=== PATIENT | female | born 2000 | race Caucasian/White ===

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

== ENCOUNTER 2022-03-28 13:27 | Emergency (ER) | payer BC, SELFPAY ==
[2022-03-28] VITALS (11 sets, daily range): BP systolic 111–125; BP diastolic 56–75; PULSE 91–92; RESP 14–16; TEMP 36.6–37.4; O2SAT 96–100
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
== END 2022-03-28 15:58 | disposition home or self-care (01) ==
PROVIDERS: Emergency Provider Nurse Practitioner Family
DX: O9A.211 Injury, poisoning and certain other consequences of external causes complicating pregnancy, first trimester (principal); T59.811A Toxic effect of smoke, accidental (unintentional), initial encounter; Z3A.01 Less than 8 weeks gestation of pregnancy
CPT/HCPCS: 36415; 84702; 99283

== ENCOUNTER → 2022-05-27 14:29 | Outpatient (CLI) | payer BC, SELFPAY ==
--- NOTE | ~2022-05-27 | US_ITS ---
EXAMINATION: US OB <= 14 weeks fetus DATE: 05/27/2022 14:46 INDICATION: Uncertain gestational dates TECHNIQUE: Real-time transabdominal obstetric ultrasound. FINDINGS: No prior studies for comparison. The uterus measures 12.8 x 7.1 x 8.9 cm. There is an intrauterine gestational sac, with pole id entified. The crown rump length measures 1.69 cm, which correlates with a estimated gestational age of 12 weeks 2 days. No heart motions detected, consistent with demise. Ovaries are not vi sualized. IMPRESSION: 1. demise. No heart motions detected. Reviewed, dictated and finalized at location A. TERIA WORKER
== END ==
PROVIDERS: Visit Provider Advanced Practice Midwife
DX: Z36.87 Encounter for antenatal screening for uncertain dates (principal); Z3A.12 12 weeks gestation of pregnancy
CPT/HCPCS: 76801

== ENCOUNTER 2022-06-05 02:09 | Day surgery (SDC) | payer BC, SELFPAY ==
[2022-05-28 15:04] VITALS: BMI 22.8
--- NOTE | 2022-05-28 15:09 | PC.NURSE ---
Report to the Outpatient Waiting Room, entrance under the green pavilion located off [facility], at time 0700 on date 06/05/22. Planned Procedure Time: 0900. Time changes happen often and if your time is changed the preop area will call you the afternoon before. - You and your visitor will be asked to self-screen and do not enter if you have any COVID symptoms. - Only one visitor is requested with a max of two and NO children visitors are allowed at this time. - The patient visitor may be requested to leave or wait in car when not with patient due to distancing restrictions. - A mask is optional within the hospital. Patients may have clear liquids (water, carbonated beverages, clear teas, apple juice) until 3 hours prior to surgery with a maximum of 20 ounces. - No food from midnight until time of surgery Take the following medications with a SIP of water the morning of surgery: NONE Medications to discontinue per physician: VITAMIN Date to take last dose: 06/01/22 Please no make-up, nail georgian, hairspray, perfume, deodorant, or body powder the day of surgery. No jewelry (including any body piercings) or valuables the day of surgery, leave them at home. Please take a shower or bath the night before, or the morning of, surgery with an antibacterial soap. Wear comfortable, loose fitting clothing. - Jewelry must be removed prior to entering the operating room. Rings and piercings that are not removed may be cut off. - The hospital will not accept responsibility for valuables. - Please leave all valuables, including medications, at home the day of surgery. If you are going home after surgery, a licensed charter coach driver must drive you home. - NO public transportation without another adult if you receive anesthesia. - We recommend that an adult stay with you for 24 hours following discharge. - We also recommend that you do not drive, make important decision, drink alcoholic beverages, or take any drugs that were not prescribed by your health care provider for at least 24 hours after your discharge time. Follow any additional instructions given to you from your surgeon. If you or anyone in your household have experienced Covid symptoms in the past week, please notify your surgeon or the nurse liaison at the phone number below for possible testing. Telephone instructions given to PT - ALEKSANDAR BRAUN and asked if any additional questions and then verbalized understanding. Patient advised to call surgeon office or pre surgery nurse liaison [phone] if any additional questions.
[2022-06-05 07:45] VITALS: BP 120/72; PULSE 68; RESP 16; TEMP 36.5; O2SAT 100
[2022-06-05] MEDS: LACTATED RINGERS 1,000 ML 30 ML IV CONT (07:45)
[2022-06-05] MEDS: ACETAMINOPHEN 500 MG TABLET 1000 MG PO (08:00)
--- NOTE | 2022-06-05 08:01 | P.PNAN_ITS ---
Anes - Initial Pre Proc Eval Procedure: Operation Date: 06/05/22 09:00 Proposed Procedures p Suction Dilation and Curettage - Vianey Hernandez MD Date/Time: 06/05/22 08:01 Surgeon: Vianey Hernandez MD Pre Op Diagnosis: missed ab Patient Data Age: 21 Gender: F Height: 1.73 m Weight: 68.04 kg Allergies Allergy/AdvReac Type Severity Reaction Status Date / Time Penicillins Allergy Unknown Rash Verified 06/05/22 07:58 Home Medications Medication Instructions Recorded Confirmed Type prenat.vits,sheree,[id number] 1 tablet PO DAILY 05/28/22 06/05/22 History Patient hx anesthesia problems: none Family hx anesthesia problems: none Results Review: All pre-operative results and documents have been reviewed as part of the pre- operative evaluation. [facility] Past Medical History Medical History Generalized anxiety disorder with panic attacks Major depressive disorder Family History Family History Father Heart disease Mother Depression Anxiety Alcohol abuse Grandparent Alcohol abuse Heart disease Diabetes mellitus Hypertension Depression Anxiety Social History Social History Social History: Caffeine-Coffee/tea/soda 3 cups daily Smoking status: Former smoker Additional smoking assessment comments: OCCASIONALLY IN PAST Alcohol intake: current Alcohol use details: OCCASIONALLY WHEN NOT Substance use: never Substance use type: does not use Living arrangements: with family Spiritual care concerns: No Agree to blood products: Yes Anes - Eval Final PreProcedure Day of Procedure 06/05/22 08:01 Patient weight: normal Heart: regular rate and rhythm Lungs: clear to auscultation Airway: Mallampati scale class II Neurological: alert and oriented Last oral intake: >/= 8 hours ASA classification: II Emergent: no Anesthetic plan: proceed Anesthesia type and monitoring: general GIVS and standard monitoring Results Review: All pre-operative results and documents have been reviewed as part of the pre- operative evaluation. Informed Consent: The patient's anesthetic plan and its attendant risks and benefits were discussed with the patient/family/POA. Questions were solicited and answers provided to the satisfaction of the patient/family/POA.
--- NOTE | 2022-06-05 08:34 | WPDHPUPDATE1 ---
History and Physical Update Update Date/Time: 06/05/22 08:34 History and Physical has been reviewed, including an updated exam of the patient. There are NO changes in the patient's condition. Risks, benefits, and alternatives have been discussed and questions answered. Patient agrees to proceed with procedure.
--- NOTE | 2022-06-05 08:35 | PM.HPGS ---
History of Present Illness History of Present Illness Consent: Risks, benefits, and alternatives have been discussed and questions answered. Patient agrees to proceed with procedure. Chief complaint: missed ab Narrative: Lizzie Rosales is a 21 year old female 1 with a missed at 12 weeks and 2 days. The patient has had no bleeding or cramping. or ultrasound revealed a 12 week 2 day demise. Patient has chosen to proceed with suction D and C after discussion of options. Risks of surgery including infection, bleeding, and perforation were reviewed. Patient voices understanding and agrees to proceed. Review of Systems Constitutional: Constitutional: Reports fatigue and Reports headache(s) Gastrointestinal: Gastrointestinal: Reports nausea and Reports vomiting PMFSH Past Medical History Medical History (Updated 06/05/22 @ 08:38 by Vianey Hernandez MD) Generalized anxiety disorder with panic attacks Major depressive disorder PTSD (post-traumatic stress disorder) Family History Family History Father Heart disease Mother Depression Anxiety Alcohol abuse Grandparent Alcohol abuse Heart disease Diabetes mellitus Hypertension Depression Anxiety Social History Social History Social History: Caffeine-Coffee/tea/soda 3 cups daily Smoking status: Former smoker Additional smoking assessment comments: OCCASIONALLY IN PAST Alcohol intake: current Alcohol use details: OCCASIONALLY WHEN NOT Substance use: never Substance use type: does not use Living arrangements: with family Spiritual care concerns: No Agree to blood products: Yes Meds Home Medications and Allergies Home Medications Medication Instructions Recorded Confirmed Type prenat.vits,sheree,[id number] 1 tablet PO DAILY 05/28/22 06/05/22 History Allergies Allergy/AdvReac Type Severity Reaction Status Date / Time Penicillins Allergy Unknown Rash Verified 06/05/22 07:58 Vital Signs Vital Signs - 24 hr 06/05/22 07:45 Temperature 97.7 F Pulse Rate 68 Respiratory Rate 16 Blood Pressure 120/72 Pulse Oximetry 100 Oxygen Delivery Room Air Exam Const: General: healthy appearing and alert Orientation/consciousness: patient oriented x3 Resp: Effort & Inspection: normal respiratory effort GI: GI Palp: Yes Soft to palpation, No Tenderness to palpation present (GI) and No Palpable mass present : External Female Exam: normal external appearance Speculum Exam - Vagina: normal appearance of the vagina and normal vaginal discharge Speculum Exam - Cervix: normal appearance of the cervix Bimanual exam- vagina & uterus: consistency normal Bimanual Exam- Adnexa, other: normal adnexae and No adnexal tenderness Neuro: General: patient oriented x3 Assessment and Plan Assessment and plan (1) Missed : Code(s): O02.1 - Missed Status: Acute Assessment and Plan: plan is to proceed with suction D&C
[2022-06-05] MEDS: LIDOCAINE HCL 1% LOCAL INJ 20 ML VIAL 10 ML INFILTRATE (09:03)
--- NOTE | 2022-06-05 09:23 | W.PM.PROC2 ---
Procedure Note - Detailed Date of Procedure 06/05/22 Pre-op Diagnosis missed ab Post-op Diagnosis Same Procedure Performed Suction D&C Surgeon Vianey Hernandez MD Anesthesia MAC and Local Findings uterus sounds to 10cm at the start of the case an 8cm at the end of the case large amount of products conception ( 150cc) with large amount of amniotic fluid Description of Procedure The patient was taken to the operating room and placed under anesthesia in the dorsal lithotomy position. She was given Methergine 10mg IM prior to starting the procedure. She was prepped and draped in the usual sterile fashion. [place] speculum was placed in the vagina and the cervix grasped on the anterior lip with a tenaculum. The cervix is injected in each quadrant with 1% lidocaine. The uterus is sounded to 10cm. The cervix is serially dilated to a 10 Hegar. The 10mm curved suction curette is used to evacuate the uterus until no further products were noted in the tubing. The sharp curette is used to curette the endometrium with a good uterine cry noted in all areas. One additional pass with the suction curette was taken with no additional products noted in the tubing. All instruments are removed and the patient awakened from anesthesia and taken to recovery in stable condition. Sponge, needle, and instrument counts are correct per the OR staff. Estimated Blood Loss 5 ( 150cc of products of conception including a large amount of amniotic fluid) Drains No Packing No Pathology Yes ( products of conception) Complications No immediate complications Condition Stable Disposition PACU
[2022-06-05 09:27] VITALS: BP 103/59; PULSE 77; RESP 12; O2SAT 100
[2022-06-05 09:55] VITALS: BP 125/74; PULSE 74; RESP 12; O2SAT 100
[2022-06-05 10:25] VITALS: BP 104/63; PULSE 82; RESP 14
[2022-06-05] MEDS: oxyCODONE HCL (*CRX) 5 MG TAB IR PO (10:27)
== END 2022-06-05 10:50 | disposition home or self-care (01) ==
PROVIDERS: Visit Provider Obstetrics & Gynecology Gynecology
PROC: (CPT 59820; principal; 2022-06-05 09:00)
DX: O02.1 Missed abortion (principal); Z3A.12 12 weeks gestation of pregnancy; Z87.891 Personal history of nicotine dependence
CPT/HCPCS: 59820; 36415; 85461; 86850; 86900; 86901; 88305; A9270; J0690; J1100; J2210; J2250; J2405; J2704; J3010; J7120

== ENCOUNTER 2022-06-06 23:17 | Emergency (ER) | payer BC, SELFPAY ==
--- NOTE | ~2022-06-06 | US_ITS ---
EXAMINATION: US pelvic complete w TV DATE: 06/07/2022 08:06 INDICATION: Pelvic pain. TECHNIQUE: Multiple transabdominal and transvaginal sonographic images of the pelvis were obtained. COMPARISON: Ultrasound 05/27/2022 FINDINGS: TRANSABDOMINAL ULTRASOUND: The uterus measures 9.4 x 5.3 x 6.6 cm. There is no free fluid in the pelvis. TRANSVAGINAL ULTRASOUND: The endometrial complex measures 16 mm in thickness in the lower uterine segment. The right ovary suzi sures 3.0 x 1.5 x 1.6 cm. The left ovary measures 3.0 x 1.2 x 1.5 cm. There is normal vascular flow i n the ovaries. IMPRESSION: 1. Thickened endometrial complex suspicious for retained products of conception. Reviewed, dictated and finalized at location A. HOUSE SORTER IMPRESSION: 1. Thickened endometrial complex suspicious for retained products of conception .
[2022-06-06 23:26] VITALS: BP 127/78; PULSE 87; RESP 18; TEMP 36.3; O2SAT 100
[2022-06-07 01:35] VITALS: BP 123/74; PULSE 74; RESP 16; O2SAT 100
[2022-06-07 04:21] VITALS: BP 117/77; PULSE 64; RESP 16; O2SAT 100
[2022-06-07] MEDS: MORPHINE SULFATE (*CRX) 4 MG/ML INJ IV PUSH (04:58)
[2022-06-07] MEDS: HYDROmorphone HCL INJ (*CRX) 1 MG/ML SYR IV PUSH (05:58)
[2022-06-07 06:02] VITALS: BP 124/88; PULSE 67; RESP 18; O2SAT 100
[2022-06-07 06:02] LABS: Appearance Urine Slightly Cloudy (Clear); Basophils Absolute Auto 0.1 K/mm3 (0.0-0.1); Basophils Percent Auto 0.7 % (0.2-1.2); Bilirubin Urine Negative (Negative); Blood Urine Trace-lysed (Negative); Color Urine Yellow (Yellow); Eosinophils Absolute Auto 0.2 K/mm3 (0-0.3); Eosinophils Percent Auto 2.2 % (0-4.4); Glucose Urine UA Negative (Negative); Hematocrit 36.9 % (37.0-47.0); Hemoglobin 12.2 g/dL (12.0-15.0); Immature Granulocyte Absolute 0.03 K/mm3 (0.00-0.031); Immature Granulocyte Percent A 0.3 % (0-0.5); Ketones Urine Negative (Negative); Leukocyte Esterase Ur Negative LEU/UL (Negative); Lymphocytes Absolute Auto 4.28 K/mm3 (0.9-3.2); Lymphocytes Percent Auto 40.5 % (18.3-44.2); Mean Corpuscular HGB Conc 33.1 g/dl (32-36); Mean Corpuscular Volume 90.7 fl (80-100); Mean Platelet Volume 10.7 fl (7.4-10.4); Monocytes Absolute Auto 0.7 K/mm3 (0.1-0.6); Monocytes Percent Auto 6.1 % (2.6-8.5); Neutrophils Absolute Auto 5.3 K/mm3 (1.3-6.7); Neutrophils Percent Auto 50.2 % (45.5-73.1); Nitrate Urine Negative (Negative); Platelet Count Result 270 k/mm3 (150-375); Protein Urine Negative (Negative); Red Blood Count 4.07 M/mm3 (4.2-5.4); Red Cell Distribution Width 14.4 % (11.5-14.5); Urobilinogen Urine 0.2 mg/dL (<2.0); White Blood Count 10.6 K/mm3 (4.5-10.0)
[2022-06-07 06:06] LABS: Amorphous Sediment Urine Few; Bacteria Urine Trace /hpf; Squamous Epithelial Cell Urine Rare /hpf (Few)
[2022-06-07 06:11] LABS: Add Urine Microscopic? YES
--- NOTE | 2022-06-07 06:42 | ED.FEMALEGU ---
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 Patient underwent a D&C on 06/05/2022 after having a 12-week demise. Performed by Dr. Hernandez. She reports having some vaginal bleeding the first day but none since then. No abnormal vaginal discharge. No fevers or chills or sweats. Had some mild discomfort after the procedure but nothing for reticular concerns. She is now having waves of increased pain however the midline lower abdomen. No urinary frequency urgency or dysuria. No diarrhea or constipation. Has not found any alleviating factors despite taking some [id number]-[id number] pain medication. <Gómez Kellogg MD - Last Filed: 06/07/22 07:02> Related Data Home medications: Home Medications Medication Instructions Recorded Confirmed prenat.vits,sheree,qaf-[id number] 1 tablet PO DAILY 05/28/22 12 <Gómez Kellogg MD - Last Filed: 06/07/22 07:02> Allergies/Adverse reactions: Allergies Allergy/AdvReac Type Severity Reaction Status Date / Time Penicillins Allergy Unknown Rash Verified 06/07/22 04:22 <Gómez Kellogg MD - Last Filed: 06/07/22 07:02> Review of Systems Review of Systems: All systems reviewed & are unremarkable except as noted in HPI and below <Gómez Kellogg MD - Last Filed: 06/07/22 07:02> Constitutional: Constitutional: Denies chills and Denies fatigue <Gómez Kellogg MD - Last Filed: 06/07/22 07:02> ENT: Denies nasal congestion and Denies sore throat <Gómez Kellogg MD - Last Filed: 06/07/22 07:02> Gastrointestinal: Gastrointestinal: Reports abdominal pain, Denies nausea and Denies vomiting <Gómez Kellogg MD - Last Filed: 06/07/22 07:02> Genitourinary: Genitourinary: Denies abnormal vaginal bleeding, Denies nocturia, Denies dysuria, Reports pelvic pain and Denies vaginal discharge <Gómez Kellogg MD - Last Filed: 06/07/22 07:02> PMFSH Past Medical History Medical History: Medical History (Updated 06/07/22 @ 09:19 by Jose Ramon Brumfield MD) Generalized anxiety disorder with panic attacks Major depressive disorder PTSD (post-traumatic stress disorder) <Gómez Kellogg MD - Last Filed: 06/07/22 07:02> Surgical History Surgical History: Surgical History (Updated 06/07/22 @ 06:43 by Gómez Kellogg MD) H/O dilation and curettage <Gómez Kellogg MD - Last Filed: 06/07/22 07:02> Family History Family History: Family History Father Heart disease Mother Depression Anxiety Alcohol abuse Grandparent Alcohol abuse Heart disease Diabetes mellitus Hypertension Depression Anxiety <Gómez Kellogg MD - Last Filed: 06/07/22 07:02> Social History Social History: Social History Social History: Caffeine-Coffee/tea/soda 3 cups daily Smoking status: Former smoker Additional smoking assessment comments: OCCASIONALLY IN PAST Alcohol intake: current Alcohol use details: OCCASIONALLY WHEN NOT Substance use: never Substance use type: does not use Spiritual care concerns: No Agree to blood products: Yes <Gómez Kellogg MD - Last Filed: 06/07/22 07:02> Exam Narrative: GENERAL: Well-appearing, well-nourished, and in no acute distress. HEAD: Normocephalic, atraumatic. EYES: PERRL and EOMI. CHEST: Clear to auscultation. No respiratory distress. HEART: Regular rate and rhythm. Normal peripheral pulses. ABDOMEN: Soft, mild tenderness suprapubic without guarding, nondistende
[2022-06-07 06:52] LABS: Anion Gap 8 mmol/L (8-16); Blood Urea Nitrogen 13 mg/dL (8-21); Calcium 8.9 mg/dL (8.9-10.7); Carbon Dioxide 28 mmol/L (22-30); Chloride 102 mmol/L (98-107); Estimated CRCL calculation 92 ml/min; Estimated Glomerular Filt Rate > 60; Glucose 85 mg/dL (65-110); Potassium 4.5 mmol/L (3.4-5.0); Sodium 138 mmol/L (134-143)
--- NOTE | 2022-06-07 07:35 | PC.NURSE ---
Pt taken to US
[2022-06-07] MEDS: HYDROmorphone HCL INJ (*CRX) 1 MG/ML SYR IM (08:39)
[2022-06-07 08:42] VITALS: BP 123/77; PULSE 76; RESP 18; O2SAT 99
[2022-06-07 10:21] VITALS: BP 114/63; PULSE 77; RESP 18; O2SAT 99
== END 2022-06-07 10:23 | disposition home or self-care (01) ==
PROVIDERS: Emergency Medicine; Emergency Provider Preventive Medicine Aerospace Medicine
DX: O03.4 Incomplete spontaneous abortion without complication (principal); R10.2 Pelvic and perineal pain; Z87.891 Personal history of nicotine dependence
CPT/HCPCS: 36415; 76830; 76856; 80048; 81001; 84702; 85025; 96365; 96372; 96375; 99284; J0696; J1170; J2270

== ENCOUNTER 2022-10-24 12:58 | Emergency (ER) | payer BC, SELFPAY ==
--- NOTE | 2022-10-24 13:07 | ED.GENADULT ---
HPI - General Adult General Chief complaint: Dental/Oral Stated complaint: tooth pain Time Seen by Provider: 10/24/22 13:08 Source: patient Mode of arrival: ambulatory Limitations: no limitations History of Present Illness HPI narrative: 22-year-old female patient presents to the [facility] with complaints of left lower dental pain for the past 3-4 days. Patient states she has been trying to call her dentist but has not been able to get in. Patient states she has been using ibuprofen for pain but really has not been helping much. Denies any fevers, body aches or chills. Denies any drainage that she is aware of from the teeth. Related Data Allergies Allergy/AdvReac Type Severity Reaction Status Date / Time Penicillins Allergy Unknown Rash Verified 10/24/22 13:12 Review of Systems Review of Systems: CONSTITUTIONAL: Denies fever, chills, or sweats. EYES: Denies visual changes, redness, or discharge. ENT: Denies rhinorrhea, congestion, sore throat, or otalgia. Positive left lower dental pain times 2-3 days CARDIOVASCULAR: Denies chest pain, palpitations, or edema. RESPIRATORY: Denies cough or dyspnea. GASTROINTESTINAL: Denies abdominal pain, nausea, vomiting, or diarrhea. GENITOURINARY: Denies dysuria or hematuria. SKIN: Denies rash or itching. MUSCULOSKELETAL: Denies back pain, joint pain, or myalgia. NEUROLOGIC: Denies headache, numbness, or weakness. PSYCHIATRIC: Denies anxiety or depression. [facility] Past Medical History Medical History Generalized anxiety disorder with panic attacks Major depressive disorder PTSD (post-traumatic stress disorder) Surgical History Surgical History H/O dilation and curettage Family History Family History Father Heart disease Mother Depression Anxiety Alcohol abuse Grandparent Alcohol abuse Heart disease Diabetes mellitus Hypertension Depression Anxiety Social History Social History Social History: Caffeine-Coffee/tea/soda 3 cups daily Smoking status: Former smoker Additional smoking assessment comments: OCCASIONALLY IN PAST Alcohol intake: current Alcohol use details: OCCASIONALLY WHEN NOT Substance use: never Substance use type: does not use Lack of Transportation: No Lack of Food: Never True Current Housing: Decline to Answer Concerned About Future Housing: Decline to Answer Difficulty Paying Gas/Electric Bills: No Difficulty Paying for Meds: YES Currently Unemployed: No Education: High School Diploma/GED Difficulty w/ Childcare or Family Care: No Living arrangements: with family Spiritual care concerns: No Agree to blood products: Yes Comments At the time of my signature I agree with nursing past medical history, surgical, social, and family history. There is no relevant family history pertinent to the presenting complaint. Exam Narrative: GENERAL: Well-appearing, well-nourished, and in no acute distress. HEAD: Normocephalic, atraumatic. EYES: PERRLA and EOMI. ENT: Nares clear, no rhinorrhea or epistaxis. Mucous membranes moist. patient has swelling and erythema to the gum surrounding the left lower molar. The molar does appear to be impacted. No open wounds or drainage noted. No obvious abscess noted. NECK: Supple. No lymphadenopathy CHEST: Clear to auscultation. No respiratory distress. HEART: Regular rate and rhythm. No murmur heard. Normal peripheral pulses. ABDOMEN: Soft, nontender, nondistended, normal active bowel sounds. EXTREMITIES: Normal range of motion. No edema. SKIN: Warm, dry, no rash. NEURO: No focal deficits. Alert and oriented x3. Course Course Level of Care: Express Care Visit Vital Signs Vital signs: Vital Signs Temperature 36.8 C 10/24/22 13:12 Pu
[2022-10-24 13:12] VITALS: BP 107/77; PULSE 78; RESP 18; TEMP 36.8; O2SAT 100
== END 2022-10-24 13:43 | disposition home or self-care (01) ==
PROVIDERS: Emergency Provider Nurse Practitioner Family; PCP Internal Medicine
DX: K04.7 Periapical abscess without sinus (principal); Z87.891 Personal history of nicotine dependence
CPT/HCPCS: 99213; G0463

== ENCOUNTER 2022-11-27 18:35 | Emergency (ER) | payer BC, SELFPAY ==
--- NOTE | 2022-11-27 18:37 | ED.URI ---
HPI - URI/Sore Throat General Chief Complaint: Upper Respiratory Infection Stated Complaint: white spots on throat,congestion Time Seen by Provider: 11/27/22 18:37 Source: patient Mode of arrival: ambulatory Limitations: no limitations History of Present Illness HPI Narrative: Lizzie is a 22-year-old female patient presenting to the clinic today with complaints of congestion and will white spots on the back of her throat x2 days. She reports no sore throat. Denies any fever or chills. States she has some nasal congestion. MD elicited complaint: sore throat and nasal congestion Related Data Home Medications Medication Instructions Recorded Confirmed No Home Medications 11/27/22 11/27/22 Allergies Allergy/AdvReac Type Severity Reaction Status Date / Time Penicillins Allergy Unknown Rash Verified 11/27/22 18:41 Review of Systems Review of Systems: Pertinent positives per HPI. Patient denies any fever, chills, rash, headache, visual changes, dizziness, cough, shortness of breath, chest pain, palpitations, nausea, vomiting, diarrhea, constipation, abdominal pain, or any urinary issues. [facility] Past Medical History Medical History Generalized anxiety disorder with panic attacks Major depressive disorder PTSD (post-traumatic stress disorder) Surgical History Surgical History H/O dilation and curettage Family History Family History Father Heart disease Mother Depression Anxiety Alcohol abuse Grandparent Alcohol abuse Heart disease Diabetes mellitus Hypertension Depression Anxiety Social History Social History Social History: Caffeine-Coffee/tea/soda 3 cups daily Smoking status: Former smoker Additional smoking assessment comments: OCCASIONALLY IN PAST Alcohol intake: current Alcohol use details: OCCASIONALLY WHEN NOT Substance use: never Substance use type: does not use Lack of Transportation: No Lack of Food: Never True Current Housing: Decline to Answer Concerned About Future Housing: Decline to Answer Difficulty Paying Gas/Electric Bills: No Difficulty Paying for Meds: YES Currently Unemployed: No Education: High School Diploma/GED Difficulty w/ Childcare or Family Care: No Living arrangements: with family Spiritual care concerns: No Agree to blood products: Yes Comments At the time of my signature, I reviewed and agree with the nursing past medical, surgical, social, and family history. There is no relevant family history pertinent to the patient complaint. Exam Narrative: General: Well-developed, well nourished, in no apparent distress Head: Normocephalic, atraumatic Eyes: Pupils equally round and reactive to light bilaterally, EOM intact, sclera and conjunctive clear, no discharge, lids normal Ears: TMs intact and clear, ear canals clear, no drainage, grossly hearing normal. Nose: Nares patent, clear discharge, no inflammation, no sinus tenderness. Mouth: Oral pharynx without lesions or masses, good dentition, MMM. PND Neck: Supple, trachea midline, no enlargement of anterior or posterior cervical nodes, no thyroid masses or goiter palpable. Cardio: Regular rate and rhythm, s1 and s2 normal, no murmur appreciated. Resp: Clear to auscultation bilaterally, no rhonchi, rales, wheezing or rubs Course Course Emergency Course: Portions of this record may have been created with voice recognition software. Level of Care: Express Care Visit Vital Signs Vital signs: Vital signs reviewed MDM - URI/Sore Throat MDM Narrative Medical decision making narrative: At the time of visit patient is resting comfortably on exam table. Strep screen was obtained and was negative in the cl
[2022-11-27 18:52] VITALS: BP 132/99; PULSE 89; RESP 16; TEMP 36.7; O2SAT 99
== END 2022-11-27 18:55 | disposition home or self-care (01) ==
PROVIDERS: Emergency Provider Nurse Practitioner Family; PCP Family Medicine
DX: J30.9 Allergic rhinitis, unspecified (principal); R09.82 Postnasal drip; Z87.891 Personal history of nicotine dependence
CPT/HCPCS: 87081; 87880; 99213; G0463

== ENCOUNTER 2023-01-05 10:04 | Outpatient (CLI) | payer BC, SELFPAY ==
[2023-01-05 19:39] LABS: Basophils Absolute Auto 0.1 K/mm3 (0.0-0.1); Basophils Percent Auto 0.9 % (0.2-1.2); Eosinophils Absolute Auto 0.1 K/mm3 (0-0.3); Eosinophils Percent Auto 1.9 % (0-4.4); Hematocrit 35.9 % (37.0-47.0); Hemoglobin 11.7 g/dL (12.0-15.0); Immature Granulocyte Absolute 0.02 K/mm3 (0.00-0.031); Immature Granulocyte Percent A 0.3 % (0-0.5); Lymphocytes Absolute Auto 2.38 K/mm3 (0.9-3.2); Lymphocytes Percent Auto 35.6 % (18.3-44.2); Mean Corpuscular HGB Conc 32.6 g/dl (32-36); Mean Corpuscular Hemoglobin 28.2 pg (26-34); Mean Corpuscular Volume 86.5 fl (80-100); Mean Platelet Volume 11.1 fl (7.4-10.4); Monocytes Absolute Auto 0.4 K/mm3 (0.1-0.6); Monocytes Percent Auto 6.4 % (2.6-8.5); Neutrophils Absolute Auto 3.7 K/mm3 (1.3-6.7); Neutrophils Percent Auto 54.9 % (45.5-73.1); Platelet Count Result 305 k/mm3 (150-375); Red Blood Count 4.15 M/mm3 (4.2-5.4); Red Cell Distribution Width 12.6 % (11.5-14.5); White Blood Count 6.7 K/mm3 (4.5-10.0)
[2023-01-05 20:37] LABS: Alanine Aminotransferase 16 U/L (6-35); Albumin Level 4.1 g/dL (3.5-5.1); Alkaline Phosphatase 78 U/L (38-126); Anion Gap 4 mmol/L (8-16); Aspartate Amino Transferase 37 U/L (14-36); Bilirubin,Total 1.6 mg/dL (0.2-1.3); Blood Urea Nitrogen 12 mg/dL (7-17); Calcium 8.8 mg/dL (8.4-10.2); Carbon Dioxide 29 mmol/L (22-30); Chloride 103 mmol/L (98-107); Estimated Glomerular Filt Rate > 60; Glucose 82 mg/dL (65-110); Potassium 4.4 mmol/L (3.4-5.0); Sodium 136 mmol/L (137-145)
[2023-01-08 05:27] LABS: Thyroid Peroxidase Antibodies <1 IU/mL (<9)
== END 2023-01-05 10:05 | disposition home or self-care (01) ==
LOC: ANHGOSHLAB 10:05
PROVIDERS: PCP Family Medicine; Visit Provider Clinical Nurse Specialist
DX: R51.9 Headache, unspecified (principal); G89.29 Other chronic pain; R41.840 Attention and concentration deficit; R53.83 Other fatigue
CPT/HCPCS: 36415; 80053; 84443; 85025; 86376

== ENCOUNTER 2023-01-10 02:47 | Emergency (ER) | payer BC, SELFPAY ==
[2023-01-10] VITALS (7 sets, daily range): BP systolic 113–127; BP diastolic 71–95; PULSE 65–89; RESP 16–19; TEMP 36.6–36.7; O2SAT 99–100
--- NOTE | ~2023-01-10 | XR_ITS ---
XR chest 1V portable DATE: 01/10/2023 03:51 INDICATION: Chest tightness, pain. Weakness. TECHNIQUE: Portable AP chest on 01/10/2023 at 0348 hours COMPARISON: None FINDINGS: Normal heart size. No hilar or mediastinal enlargement. No pulmonary infiltrate or consolid ation, pleural effusion or pulmonary vascular congestion or pneumothorax. Included skeletal structures are unremarkable. IMPRESSION: No active cardiopulmonary disease Reviewed, dictated and finalized at location A.
--- NOTE | 2023-01-10 03:11 | ECG_ITS ---
Measurements Intervals [place] Rate: 74 P: 45 NH: 174 QRS: 66 QRSD: 96 T: 22 QT: 373 QTc: 414 Interpretive Statements SINUS RHYTHM MINIMAL Q WAVES- ANTEROLAT/INF LEADS BORDERLINE ECG NO PREVIOUS ECG AVAILABLE FOR COMPARISON Electronically Signed On 01-10-2023 8:13:06 CDT by Ren Ramos D.O.
--- NOTE | 2023-01-10 03:22 | ED.GENADULT ---
HPI - General Adult General Chief complaint: Unspecified Stated complaint: weakness, trouble staing awake, chest tightness Time Seen by Provider: 01/10/23 02:58 History of Present Illness HPI narrative: Patient 22-year-old female who presents emerged department with chief complaint of generalized weakness. The patient reports that she has been feeling weak over the last several days reports that she this evening feels so weak that she just cannot really open her eyes and just feels exhausted. The patient denies chest pain denies shortness of breath denies abdominal pain patient denies vomiting or diarrhea patient reports that she is scheduled to have an outpatient MRI in the next month by her primary doctor Related Data Home Medications Medication Instructions Recorded Confirmed No Home Medications 11/27/22 01/05/23 Allergies Allergy/AdvReac Type Severity Reaction Status Date / Time Penicillins Allergy Unknown Rash Verified 01/10/23 03:08 Review of Systems Review of Systems: A 10 system review of systems was completed on the patient and is negative except for what is stated in the HPI. Nursing and ancillary documentation was reviewed. [facility] Past Medical History Medical History Generalized anxiety disorder with panic attacks Major depressive disorder Missed PTSD (post-traumatic stress disorder) Surgical History Surgical History H/O dilation and curettage Family History Family History Father Heart disease Mother Depression Anxiety Alcohol abuse Grandparent Alcohol abuse Heart disease Diabetes mellitus Hypertension Depression Anxiety Social History Social History Social History: Caffeine-Coffee/tea/soda 3 cups daily Smoking status: Former smoker Additional smoking assessment comments: OCCASIONALLY IN PAST Alcohol intake: current Alcohol use details: OCCASIONALLY WHEN NOT Substance use: never Substance use type: does not use Lack of Transportation: No Lack of Food: Never True Current Housing: Decline to Answer Concerned About Future Housing: Decline to Answer Difficulty Paying Gas/Electric Bills: No Difficulty Paying for Meds: No Currently Unemployed: No Education: High School Diploma/GED Difficulty w/ Childcare or Family Care: No Living arrangements: with family Spiritual care concerns: No Agree to blood products: Yes Exam Narrative: GENERAL: Well-appearing, well-nourished, and in no acute distress. HEAD: Normocephalic, atraumatic. EYES: PERRLA and EOMI. ENT: Nares clear, no rhinorrhea or epistaxis. Mucous membranes moist. NECK: Supple. CHEST: Clear to auscultation. No respiratory distress. HEART: Regular rate and rhythm. No murmur heard. Normal peripheral pulses. ABDOMEN: Soft, nontender, nondistended, normal active bowel sounds. EXTREMITIES: Normal range of motion. No edema. SKIN: Warm, dry, no rash. NEURO: No focal deficits. Alert and oriented x3. PSYCH: Normal mood and affect. Course Vital Signs Vital signs: Vital Signs Temperature 36.7 C 01/10/23 02:53 Pulse Rate 85 01/10/23 02:53 Respiratory Rate 16 01/10/23 02:53 Blood Pressure 127/84 01/10/23 02:53 Pulse Oximetry 100 01/10/23 02:53 Oxygen Delivery Room Air 01/10/23 02:53 Temperature 36.7 C 01/10/23 02:53 Pulse Rate 71 01/10/23 04:52 Respiratory Rate 19 01/10/23 04:52 Blood Pressure 113/73 01/10/23 04:52 Pulse Oximetry 99 01/10/23 04:52 Oxygen Delivery Room Air 01/10/23 02:53 Medical Decision Making MDM Narrative Medical decision making narrative: Differential diagnosis includes dysrhythmia, ACS, electrolyte abnormality Artery studies were obtaine
[2023-01-10] MEDS: SODIUM CHLORIDE 0.9% IV 1,000 ML 999 ML IV CONT ×2 (03:43→06:17)
[2023-01-10 03:45] LABS: Basophils Percent Auto 0.6 % (0.2-1.2); Eosinophils Absolute Auto 0.2 K/mm3 (0-0.3); Eosinophils Percent Auto 3.5 % (0-4.4); Hematocrit 32.6 % (37.0-47.0); Hemoglobin 10.9 g/dL (12.0-15.0); Immature Granulocyte Absolute 0.02 K/mm3 (0.00-0.031); Immature Granulocyte Percent A 0.3 % (0-0.5); Lymphocytes Absolute Auto 1.84 K/mm3 (0.9-3.2); Lymphocytes Percent Auto 29.1 % (18.3-44.2); Mean Corpuscular HGB Conc 33.4 g/dl (32-36); Mean Corpuscular Hemoglobin 28.9 pg (26-34); Mean Corpuscular Volume 86.5 fl (80-100); Mean Platelet Volume 9.6 fl (7.4-10.4); Monocytes Absolute Auto 0.5 K/mm3 (0.1-0.6); Monocytes Percent Auto 8.4 % (2.6-8.5); Neutrophils Absolute Auto 3.7 K/mm3 (1.3-6.7); Neutrophils Percent Auto 58.1 % (45.5-73.1); Platelet Count Result 245 k/mm3 (150-375); Red Blood Count 3.77 M/mm3 (4.2-5.4); Red Cell Distribution Width 13.1 % (11.5-14.5); White Blood Count 6.3 K/mm3 (4.5-10.0)
[2023-01-10 04:00] LABS: Lactic Acid Reflex 0.9 mmol/L (0.7-2.0)
[2023-01-10 04:01] LABS: Alanine Aminotransferase 14 U/L (6-35); Alkaline Phosphatase 76 U/L (38-126); Anion Gap 8 mmol/L (8-16); Aspartate Amino Transferase 24 U/L (14-36); Bilirubin,Total 1.3 mg/dL (0.2-1.3); Blood Urea Nitrogen 10 mg/dL (7-17); Calcium 8.7 mg/dL (8.4-10.2); Carbon Dioxide 27 mmol/L (22-30); Chloride 105 mmol/L (98-107); Estimated CRCL calculation 111 ml/min; Estimated Glomerular Filt Rate > 60; Glucose 98 mg/dL (65-110); Lipase 73 U/L (23-300); Magnesium 1.9 mg/dL (1.6-2.3); Potassium 3.9 mmol/L (3.4-5.0); Sodium 140 mmol/L (137-145)
[2023-01-10 04:55] LABS: Appearance Urine Cloudy (Clear); Bacteria Urine None Seen /hpf; Bilirubin Urine Negative (Negative); Blood Urine 2+ (Negative); Color Urine Yellow (Yellow); Glucose Urine UA Negative (Negative); Ketones Urine Negative (Negative); Leukocyte Esterase Ur Negative LEU/UL (Negative); Need Manual Microscopic Reviewed; Nitrate Urine Negative (Negative); Non Pathogenic Casts 0-2; Protein Urine Negative (Negative); RBC Urine 0-2 /hpf (0-2); Specific Grav Ur 1.006 (1.001-1.035); Squamous Epithelial Cell Urine None seen /hpf (Few); Urobilinogen Urine 0.2 mg/dL (<2.0); WBC Urine 0-5 /hpf; pH Urine 7.5 (5.0-9.0)
[2023-01-10 04:57] LABS: Add Urine Microscopic? YES
[2023-01-10] MEDS: MAGNESIUM SULF 1 GM/D5W 100 ML 1 GM/100 ML BAG IVPB (05:24)
[2023-01-10 05:43] LABS: Troponin I < 0.012 ng/mL (0.000-0.034)
== END 2023-01-10 06:50 | disposition home or self-care (01) ==
PROVIDERS: Emergency Provider Emergency Medicine; PCP Family Medicine
DX: R53.1 Weakness (principal); R07.89 Other chest pain; Z87.891 Personal history of nicotine dependence
CPT/HCPCS: 36415; 71045; 80053; 81001; 83605; 83690; 83735; 84484; 85025; 93005; 96361; 96365; 99284; J3475; J7030

== ENCOUNTER → 2023-04-15 11:59 | Outpatient (CLI) | payer BC, SELFPAY ==
--- NOTE | ~2023-04-15 | XR_ITS ---
Left Shoulder Technique: AP and axillary views were obtained. Clinical History: Pain Findings: No fracture or dislocation is seen. Osseous alignment is anatomic. The glenohumeral and acr omioclavicular joint spaces are preserved. Soft tissues are unremarkable. Impression: Unremarkable left shoulder radiographs. Reviewed, dictated and finalized at [facility]. Impression: Unremarkable left shoulder radiographs.
--- NOTE | ~2023-04-15 | XR_ITS ---
Right wrist Technique: PA, oblique, lateral, and ulnar deviation views were obtained. Clinical History: Pain Findings: No acute fracture or dislocation is seen. Probable bone island in the capitate. Osseous ali gnment is anatomic. Joint spaces are preserved. Soft tissues are unremarkable. Impression: No acute abnormality. Probable bone island in the capitate. Reviewed, dictated and finalized at location . Impression: No acute abnormality. Probable bone island in the capitate.
--- NOTE | ~2023-04-15 | XR_ITS ---
XR wrist LT min 3V DATE: 04/15/2023 12:36 INDICATION: Multiple joint pain. Left wrist pain. No injury. TECHNIQUE: 4 views COMPARISON: None FINDINGS: No fracture or dislocation, periosteal reaction or bone destruction, joint space narrowing, erosive change or chondrocalcinosis. IMPRESSION: Negative Reviewed, dictated and finalized at location L. IMPRESSION: Negative
--- NOTE | ~2023-04-15 | XR_ITS ---
AP view of the pelvis and AP and lateral views of the bilateral hips Clinical history: Pain Findings: No acute fracture or dislocation is seen. Osseous alignment is anatomic. Bilateral hip and SI joint spaces are preserved. Soft tissues are unremarkable. Impression: No significant abnormality is seen. Reviewed, dictated and finalized at location . Impression: No significant abnormality is seen.
--- NOTE | ~2023-04-15 | XR_ITS ---
XR shoulder RT min 2V DATE: 04/15/2023 12:37 INDICATION: Right shoulder pain. Multiple joint pain. No injury. TECHNIQUE: 4 views COMPARISON: None FINDINGS: No fracture or dislocation, periosteal reaction or bone destruction. Normal alignment at th e acromioclavicular and glenohumeral joints. No abnormal soft tissue calcification. IMPRESSION: Negative Reviewed, dictated and finalized at location L. IMPRESSION: Negative
--- NOTE | ~2023-04-15 | XR_ITS ---
XR knee RT min 4V DATE: 04/15/2023 12:37 INDICATION: Multiple joint pain. Right knee pain. No injury. TECHNIQUE: [place], standing AP, PA and lateral views COMPARISON: None FINDINGS: No fracture or dislocation or joint effusion. Joint spaces are preserved. No radiopaque int ra-articular loose body or, calcinosis. No periosteal reaction or bone destruction. IMPRESSION: Negative Reviewed, dictated and finalized at location L. IMPRESSION: Negative
== END ==
PROVIDERS: PCP Family Medicine; Visit Provider Family Medicine
DX: M25.50 Pain in unspecified joint (principal)
CPT/HCPCS: 73030; 73110; 73521; 73564

== ENCOUNTER 2023-06-22 13:41 | Outpatient (CLI) | payer BC, SELFPAY ==
[2023-06-22 19:22] LABS: Alanine Aminotransferase 22 U/L (6-35); Albumin Level 4.3 g/dL (3.5-5.1); Alkaline Phosphatase 100 U/L (38-126); Anion Gap 9 mmol/L (8-16); Aspartate Amino Transferase 30 U/L (14-36); Bilirubin,Total 1.4 mg/dL (0.2-1.3); Blood Urea Nitrogen 9 mg/dL (7-17); Calcium 9.4 mg/dL (8.4-10.2); Carbon Dioxide 27 mmol/L (22-30); Chloride 104 mmol/L (98-107); Cholesterol 148 mg/dL (0-200); Estimated Glomerular Filt Rate > 60; Glucose 91 mg/dL (65-110); HDL Direct 51 mg/dL; Sodium 140 mmol/L (137-145); Triglycerides 50 mg/dL (<150)
[2023-06-22 19:26] LABS: Iron 59 ug/dL (37-170)
[2023-06-22 19:33] LABS: Basophils Percent Auto 0.5 % (0.2-1.2); Eosinophils Absolute Auto 0.2 K/mm3 (0-0.3); Eosinophils Percent Auto 2.7 % (0-4.4); Hematocrit 38.8 % (37.0-47.0); Hemoglobin 12.4 g/dL (12.0-15.0); Immature Granulocyte Absolute 0.01 K/mm3 (0.00-0.031); Immature Granulocyte Percent A 0.2 % (0-0.5); Lymphocytes Absolute Auto 1.89 K/mm3 (0.9-3.2); Lymphocytes Percent Auto 30.1 % (18.3-44.2); Mean Corpuscular Hemoglobin 28.9 pg (26-34); Mean Corpuscular Volume 90.4 fl (80-100); Mean Platelet Volume 10.8 fl (7.4-10.4); Monocytes Absolute Auto 0.5 K/mm3 (0.1-0.6); Monocytes Percent Auto 8.5 % (2.6-8.5); Neutrophils Absolute Auto 3.6 K/mm3 (1.3-6.7); Platelet Count Result 265 k/mm3 (150-375); Red Blood Count 4.29 M/mm3 (4.2-5.4); Red Cell Distribution Width 13.9 % (11.5-14.5); White Blood Count 6.3 K/mm3 (4.5-10.0)
[2023-06-22 19:48] LABS: Free T4 Free Thyroxine 1.08 ng/mL (0.78-2.19); Transferrin 266 mg/dL (206-381); Vitamin D 25 Hydroxy 26.3 ng/mL
[2023-06-22 20:01] LABS: Percent Iron Saturation 18 % (20-50)
[2023-06-22 20:11] LABS: Ferritin 7.48 ng/mL (6.24-137)
[2023-06-22 20:39] LABS: Hemoglobin A1C 4.8 % (<5.7)
[2023-06-22 22:56] LABS: LDL Cholesterol Direct 76 mg/dL
[2023-06-24 20:31] LABS: Methylmalonic Acid 94 nmol/L (87-318)
== END 2023-06-22 13:42 | disposition home or self-care (01) ==
LOC: ANHGOSHLAB 13:43
PROVIDERS: Clinical Nurse Specialist; PCP Family Medicine; Visit Provider Family Medicine
DX: D64.9 Anemia, unspecified (principal); E55.9 Vitamin D deficiency, unspecified; R53.83 Other fatigue; R73.9 Hyperglycemia, unspecified; Z13.220 Encounter for screening for lipoid disorders
CPT/HCPCS: 36415; 80053; 80061; 82306; 82607; 82728; 82746; 83036; 83540; 83550; 83921; 84439; 84443; 84466; 85025

== ENCOUNTER 2023-10-22 15:36 | Outpatient (CLI) | payer BC, SELFPAY ==
[2023-10-22 18:40] LABS: Basophils Percent Auto 0.7 % (0.2-1.2); Eosinophils Absolute Auto 0.1 K/mm3 (0-0.3); Eosinophils Percent Auto 1.8 % (0-4.4); Hematocrit 37.3 % (37.0-47.0); Hemoglobin 12.3 g/dL (12.0-15.0); Immature Granulocyte Absolute 0.01 K/mm3 (0.00-0.031); Immature Granulocyte Percent A 0.2 % (0-0.5); Lymphocytes Percent Auto 36.8 % (18.3-44.2); Mean Corpuscular Hemoglobin 28.8 pg (26-34); Mean Corpuscular Volume 87.4 fl (80-100); Mean Platelet Volume 10.3 fl (7.4-10.4); Monocytes Absolute Auto 0.5 K/mm3 (0.1-0.6); Monocytes Percent Auto 7.9 % (2.6-8.5); Neutrophils Percent Auto 52.6 % (45.5-73.1); Platelet Count Result 273 k/mm3 (150-375); Red Blood Count 4.27 M/mm3 (4.2-5.4); Red Cell Distribution Width 13.1 % (11.5-14.5); White Blood Count 5.7 K/mm3 (4.5-10.0)
[2023-10-25 06:44] LABS: Tissue Transglutaminase IgA Ab <1.0 U/mL
[2023-10-27 11:08] LABS: Endomysial Ab (IgA) Screen NEGATIVE (NEGATIVE)
== END 2023-10-22 15:37 | disposition home or self-care (01) ==
LOC: ANHGOSHLAB 15:37
PROVIDERS: PCP Family Medicine; Visit Provider Family Medicine
DX: R10.9 Unspecified abdominal pain (principal); K62.5 Hemorrhage of anus and rectum
CPT/HCPCS: 36415; 85025; 86255; 86364

== ENCOUNTER 2024-03-14 19:40 | Emergency (ER) | payer BC, SELFPAY ==
[2024-03-14 19:49] VITALS: BP 128/86; PULSE 92; RESP 16; TEMP 36.9; O2SAT 100
--- NOTE | 2024-03-14 20:03 | ED.ABDPAIN ---
HPI - Abdominal Pain General Chief Complaint: Abdominal Pain Stated Complaint: stomach pain and bleeding Source: patient and RN notes reviewed Mode of arrival: ambulatory Limitations: no limitations History of Present Illness HPI narrative: 23-year-old female history of GERD and chronic blood in stool, anxiety and depression presented for complaint of abdominal pain. Reports pain started just prior to arrival lasted approximately 1 hour. Pain subsiding, rates pain 5/10. Pain was described as sharp, causing her to become sweaty. She states the combination of the abdominal pain with the chronic blood in stool caused concern. She denies nausea, vomiting, fevers or chills. LMP 02/26/2024. Patient has been referred to GI but has not established. Related Data Home Medications Medication Instructions Recorded Confirmed gabapentin 600 mg tablet 600 mg PO TID 04/15/23 03/14/24 Allergies Allergy/AdvReac Type Severity Reaction Status Date / Time Penicillins Allergy Unknown Rash Verified 03/08/24 09:07 Review of Systems Review of Systems: CONSTITUTIONAL: Denies body aches, fever, chills ENT: Denies rhinorrhea, congestion CARDIOVASCULAR: Denies chest pain, palpitations, or edema. RESPIRATORY: Denies cough or dyspnea. GASTROINTESTINAL: Endorses abdominal pain, dark stool . Denies nausea, vomiting, diarrhea GENITOURINARY: Denies dysuria, hematuria, or CVA tenderness. SKIN: Denies rash, itching, or wounds. MUSCULOSKELETAL: Denies back pain, joint pain, or myalgia. NEUROLOGIC: Denies headache, numbness, tingling, or weakness. All systems reviewed & are unremarkable except as noted in HPI and below PMFSH Past Medical History Medical History Generalized anxiety disorder with panic attacks Major depressive disorder Missed PTSD (post-traumatic stress disorder) Surgical History Surgical History H/O dilation and curettage Family History Family History Father Heart disease Mother Depression Anxiety Alcohol abuse Grandparent Alcohol abuse Heart disease Diabetes mellitus Hypertension Depression Anxiety Social History Social History Social History: Caffeine-Coffee/tea/soda 3 cups daily Smoking status: Former smoker Additional smoking assessment comments: OCCASIONALLY IN PAST Alcohol intake: current Alcohol use details: OCCASIONALLY WHEN NOT Substance use: never Substance use type: does not use Do You Feel Safe in your Home?: Yes Lack of Transportation: No Lack of Food: Never True Current Housing: Decline to Answer Concerned About Future Housing: Decline to Answer Difficulty Paying Gas/Electric Bills: No Difficulty Paying for Meds: No Currently Unemployed: No Education: High School Diploma/GED Difficulty w/ Childcare or Family Care: No Living arrangements: with family Spiritual care concerns: No Agree to blood products: Yes Comments At time of signature, I have reviewed and agree with nursing past medical, surgical, social and family history unless otherwise noted. Please see nursing chart for further information. There is no relevant family history pertinent to the presenting complaint Exam Narrative: GENERAL: Well-appearing, and in no acute distress. EYES: EOMI. Conjunctivae normal. ENT: Mucous membranes pink and moist. CHEST: No respiratory distress. Clear to auscultation. HEART: Regular rate and rhythm. ABDOMEN: abd soft, nondistended, normal active bowel sounds. Tender abdomen: RUQ and Bilateral lower quandrants; No guarding, rebound tenderness, asymmetry SKIN: Warm, dry, large bruise left knee. Capillary refill normal. Normal skin turgor. NEURO: No focal deficits. Alert and oriented x3. PSYCH: flat, anxious a
== END 2024-03-14 20:12 | disposition short-term general hospital (02) ==
PROVIDERS: Emergency Provider Nurse Practitioner Family; PCP Family Medicine
DX: R10.11 Right upper quadrant pain (principal); R10.31 Right lower quadrant pain; R10.32 Left lower quadrant pain
CPT/HCPCS: 99212; G0463

== ENCOUNTER 2024-03-14 20:29 | Emergency (ER) | payer BC, SELFPAY ==
--- NOTE | ~2024-03-14 | CT_ITS ---
CT of the Abdomen and Pelvis: Indication: Abdominal pain Technique: 2.5 mm axial scans were obtained through the abdomen and pelvis following intravenous adm inistration of 100 cc of Omnipaque 350. Dose reduction technique was used on this scan by utilizing a utomated exposure control and iterative reconstruction technique. The dose-length product (DLP) was 2 72.24 mGy-cm. Findings: Scans through the lung bases are unremarkable. There is mild periportal edema, nonspecific. The liver, spleen, pancreas, gallbladder, adrenals and k idneys are otherwise within normal limits. No evidence of aortic aneurysm. No lymphadenopathy. No bowel obstruction or bowel wall thickening. There is no evidence to suggest acute appendicitis. Images through the pelvis were performed. Urinary bladder unremarkable. No pelvic mass seen. No ascit es. Impression: Mild periportal edema, nonspecific. No other distinct abnormality identified. Reviewed, dictated and finalized at [facility]. Impression: Mild periportal edema, nonspecific. No other distinct abnormality identified.
[2024-03-14 21:21] VITALS: BP 120/75; PULSE 83; RESP 16; TEMP 36.5; O2SAT 99
--- NOTE | 2024-03-14 23:53 | ED.ABDPAIN ---
HPI - Abdominal Pain General Chief Complaint: Abdominal Pain <DANN Collado Last Filed: 03/17/24 09:21> Stated Complaint: abd pain <Sandra Pathak PA-C - Last Filed: 03/17/24 09:21> Time Seen by Provider: 03/14/24 23:07 <Sandra Pathak PA-C - Last Filed: 03/17/24 09:21> Source: patient <DANN Collado Last Filed: 03/17/24 09:21> Mode of arrival: ambulatory <DANN Collado Last Filed: 03/17/24 09:21> Limitations: no limitations <DANN Collado Last Filed: 03/17/24 09:21> History of Present Illness HPI narrative: This is a 23 year old female that presents to the ER for right lower quadrant abdomoninal pain. Reports radiation into her low back. Reports nausea and diarrhea. Denies fever, or dysuria. <DANN Collado Last Filed: 03/17/24 09:21> Related Data Home Medications: Home Medications Medication Instructions Recorded Confirmed gabapentin 600 mg tablet 600 mg PO TID 04/15/23 03/14/24 <Sandra Pathak PA-C - Last Filed: 03/17/24 09:21> Allergies/Adverse Reactions: Allergies Allergy/AdvReac Type Severity Reaction Status Date / Time Penicillins Allergy Unknown Swelling Verified 03/14/24 21:21 of Lip/Tongue/Throat <DANN Collado Last Filed: 03/17/24 09:21> Review of Systems Review of Systems: CONSTITUTIONAL: Denies fever GASTROINTESTINAL: Reports abdominal pain, nausea, diarrhea. Denies vomiting GENITOURINARY: Denies dysuria or hematuria. <Sandra Pathak PA-C - Last Filed: 03/17/24 09:21> All systems reviewed & are unremarkable except as noted in HPI and below <DANN Collado Last Filed: 03/17/24 09:21> PMFSH Past Medical History Medical History: Medical History Generalized anxiety disorder with panic attacks Major depressive disorder Missed PTSD (post-traumatic stress disorder) <Sandra Pathak PA-C - Last Filed: 03/17/24 09:21> Surgical History Surgical History: Surgical History H/O dilation and curettage <Sandra Pathak PA-C - Last Filed: 03/17/24 09:21> Family History Family History: Family History Father Heart disease Mother Depression Anxiety Alcohol abuse Grandparent Alcohol abuse Heart disease Diabetes mellitus Hypertension Depression Anxiety <Sandra Pathak PA-C - Last Filed: 03/17/24 09:21> Social History Social History: Social History Social History: Caffeine-Coffee/tea/soda 3 cups daily Smoking status: Former smoker Additional smoking assessment comments: OCCASIONALLY IN PAST Alcohol intake: current Alcohol use details: OCCASIONALLY WHEN NOT Substance use: never Substance use type: does not use Do You Feel Safe in your Home?: Yes Lack of Transportation: No Lack of Food: Never True Current Housing: Decline to Answer Concerned About Future Housing: Decline to Answer Difficulty Paying Gas/Electric Bills: No Difficulty Paying for Meds: No Currently Unemployed: No Education: High School Diploma/GED Difficulty w/ Childcare or Family Care: No Living arrangements: with family Spiritual care concerns: No Agree to blood products: Yes <Sandra Pathak PA-C - Last Filed: 03/17/24 09:21> Exam Narrative: GENERAL: Well-appearing, well-nourished, and in no acute distress. HEAD: Normocephalic, atraumatic. EYES: EOMI. CHEST: Clear to auscultation. No respiratory distress. No wheezes rales or rhonchi HEART: Regular rate and rhythm. No murmur heard. Normal peripheral pulses. ABDOMEN: Soft, nondistended, normal active bowel sounds. Tender to palpation throughout the lower abdomen, without guarding EXTREMITIES: Normal range of motion. No ed
[2024-03-14 23:54] LABS: Add Urine Microscopic? YES; Appearance Urine Turbid (Clear); Bacteria Urine Rare /hpf; Bilirubin Urine Negative (Negative); Blood Urine Negative (Negative); Color Urine Yellow (Yellow); Glucose Urine UA Negative (Negative); Ketones Urine Negative (Negative); Leukocyte Esterase Ur Trace LEU/UL (Negative); Nitrate Urine Negative (Negative); Non Pathogenic Casts 0-2; Protein Urine Negative (Negative); RBC Urine 0-2 /hpf (0-2); Specific Grav Ur 1.021 (1.001-1.035); Squamous Epithelial Cell Urine Occasional /hpf (Few); WBC Urine 0-5 /hpf (0-3)
[2024-03-14 23:58] VITALS: BP 113/72; PULSE 70; RESP 18; O2SAT 100
[2024-03-14] MEDS: ONDANSETRON INJ 4 MG/2 ML VIAL IV PUSH (23:59)
[2024-03-15] MEDS: PANTOPRAZOLE SODIUM IV 40 MG VIAL IV PUSH
[2024-03-15 00:01] LABS: BEDSIDEPREGUCG Negative (Negative)
[2024-03-15] MEDS: SODIUM CHLORIDE 0.9% IV 1,000 ML 999 ML IV CONT (00:01)
[2024-03-15 00:14] LABS: Basophils Absolute Auto 0.1 K/mm3 (0.0-0.1); Basophils Percent Auto 0.7 % (0.2-1.2); Eosinophils Absolute Auto 0.1 K/mm3 (0-0.3); Eosinophils Percent Auto 1.3 % (0-4.4); Hematocrit 34.9 % (37.0-47.0); Hemoglobin 11.5 g/dL (12.0-15.0); Immature Granulocyte Absolute 0.03 K/mm3 (0.00-0.031); Immature Granulocyte Percent A 0.4 % (0-0.5); Lymphocytes Absolute Auto 2.53 K/mm3 (0.9-3.2); Lymphocytes Percent Auto 36.6 % (18.3-44.2); Mean Corpuscular Hemoglobin 28.4 pg (26-34); Mean Corpuscular Volume 86.2 fl (80-100); Monocytes Absolute Auto 0.4 K/mm3 (0.1-0.6); Monocytes Percent Auto 6.1 % (2.6-8.5); Neutrophils Absolute Auto 3.8 K/mm3 (1.3-6.7); Neutrophils Percent Auto 54.9 % (45.5-73.1); Platelet Count Result 262 k/mm3 (150-375); Red Blood Count 4.05 M/mm3 (4.2-5.4); Red Cell Distribution Width 13.8 % (11.5-14.5); White Blood Count 6.9 K/mm3 (4.5-10.0)
[2024-03-15 00:22] LABS: Alanine Aminotransferase 11 U/L (6-35); Albumin Level 4.3 g/dL (3.5-5.1); Alkaline Phosphatase 92 U/L (38-126); Anion Gap 11 mmol/L (4-12); Aspartate Amino Transferase 21 U/L (14-36); Bilirubin,Total 1.5 mg/dL (0.2-1.3); Blood Urea Nitrogen 9 mg/dL (7-17); Calcium 9.2 mg/dL (8.4-10.2); Carbon Dioxide 26 mmol/L (22-30); Chloride 103 mmol/L (98-107); Estimated CRCL calculation 127 ml/min; Estimated Glomerular Filt Rate > 60; Glucose 90 mg/dL (65-110); Lipase 76 U/L (23-300); Potassium 3.8 mmol/L (3.4-5.0); Sodium 140 mmol/L (137-145)
[2024-03-15 01:50] VITALS: BP 118/84; PULSE 89; RESP 19; O2SAT 99
[2024-03-15] MEDS: LORazepam INJ (*CRX) 2 MG/ML VIAL 0.5 MG IV PUSH (02:02)
[2024-03-15] MEDS: KETOROLAC 15 MG/ML VIAL (*BKC) IV PUSH (02:02)
[2024-03-15 04:37] VITALS: BP 117/86; PULSE 88; RESP 18; O2SAT 100
== END 2024-03-15 04:38 | disposition home or self-care (01) ==
PROVIDERS: Physician Assistant; Emergency Provider Emergency Medicine; PCP Family Medicine
DX: R10.31 Right lower quadrant pain (principal); F41.0 Panic disorder [episodic paroxysmal anxiety]; F41.1 Generalized anxiety disorder; F43.10 Post-traumatic stress disorder, unspecified; Z87.891 Personal history of nicotine dependence; K76.89 Other specified diseases of liver
CPT/HCPCS: 36415; 74177; 80053; 81001; 81025; 83690; 85025; 96361; 96374; 96375; 99284; J1885; J2060; J2405; J2470; J7030; Q9967

== ENCOUNTER 2024-06-20 00:07 | Day surgery (SDC) | payer BC, SELFPAY ==
[2024-06-14 08:52] VITALS: BMI 22.8
--- NOTE | 2024-06-20 08:25 | WPDANESEPPF ---
Anes - Initial Pre Proc Eval Procedure: Operation Date: 06/20/24 13:00 Proposed Procedures p Esophagogastroduodenoscopy & Colonoscopy - Bennett Hough MD Date/Time: 06/20/24 08:25 Surgeon: Bennett Hough MD Pre Op Diagnosis: hem or anus/rectum, GERD Patient Data Age: 23 Gender: F Height: 1.73 m Weight: 68.1 kg Allergies Allergy/AdvReac Type Severity Reaction Status Date / Time Penicillins Allergy Unknown Swelling Verified 06/20/24 09:46 of Lip/Tongue/Throat aripiprazole (From Abilify) AdvReac Severe Other Verified 06/20/24 09:46 Home Medications ?Medication ?Instructions ?Recorded ?Confirmed ?Type gabapentin 600 mg tablet 600 mg PO TID 04/15/23 06/20/24 History duloxetine 30 mg capsule,delayed 30 mg PO QHS #90 caps 10/21/23 06/20/24 Rx release (Cymbalta) duloxetine 60 mg capsule,delayed 60 mg PO QAM #90 caps 10/21/23 06/20/24 Rx release (Cymbalta) propranolol 20 mg tablet 20 mg PO Q12H 06/01/24 06/20/24 History Patient hx anesthesia problems: none Family hx anesthesia problems: none Results Review: All pre-operative results and documents have been reviewed as part of the pre-operative evaluation. COUNT INCLUDES THE [facility] Past Medical History Medical History (Updated 06/20/24 @ 08:26 by Rah Mallory DO) Chronic pain Suicide attempt Schizotypal disorder Bipolar disorder Asthma Missed PTSD (post-traumatic stress disorder) Generalized anxiety disorder with panic attacks Major depressive disorder Surgical History Surgical History H/O dilation and curettage Family History Family History Father Heart disease Mother Depression Anxiety Alcohol abuse Grandparent Alcohol abuse Heart disease Diabetes mellitus Hypertension Depression Anxiety Social History Social History Social History: Caffeine-Coffee/tea/soda 3 cups daily Smoking status: Former smoker Additional smoking assessment comments: OCCASIONALLY IN PAST Alcohol intake: current Alcohol use details: OCCASIONALLY WHEN NOT Substance use: never Substance use type: does not use Do You Feel Safe in your Home?: Yes Lack of Transportation: No Lack of Food: Never True Current Housing: Decline to Answer Concerned About Future Housing: Decline to Answer Difficulty Paying Gas/Electric Bills: No Difficulty Paying for Meds: No Currently Unemployed: No Education: High School Diploma/GED Difficulty w/ Childcare or Family Care: No Living arrangements: with family Spiritual care concerns: No Agree to blood products: Yes Anes - Eval Final PreProcedure Day of Procedure 06/20/24 08:25 Patient weight: normal Heart: regular rate and rhythm Lungs: clear to auscultation and normal air movement Airway: Mallampati scale class II Neurological: alert and oriented Last oral intake: >/= 8 hours ASA classification: III Emergent: no Anesthetic plan: proceed Anesthesia type and monitoring: general GIVS and standard monitoring Results Review: All pre-operative results and documents have been reviewed as part of the pre-operative evaluation. Informed Consent: The patient's anesthetic plan and its attendant risks and benefits were discussed with the patient/family/POA. Questions were solicited and answers provided to the satisfaction of the patient/family/POA.
[2024-06-20 09:47] VITALS: BP 108/69; PULSE 87; RESP 18; TEMP 36.5; O2SAT 100
[2024-06-20 09:59] LABS: BEDSIDEPREGUCG Negative (Negative)
[2024-06-20] MEDS: LACTATED RINGERS 1,000 ML 150 ML IV CONT (10:10)
--- NOTE | 2024-06-20 10:24 | PM.HPGS ---
History of Present Illness History of Present Illness Consent: Risks, benefits, and alternatives have been discussed and questions answered. Patient agrees to proceed with procedure. Chief complaint: hem or anus/rectum, GERD Narrative: Lizzie Rosales is a 23 year old female here for first egd and colonoscopy, h/o gerd on famotidine and recently blood in stools. Review of Systems Review of Systems: All systems reviewed & are unremarkable except as noted in HPI and below PMFSH Past Medical History Medical History (Updated 06/20/24 @ 08:26 by Rah Mallory DO) Chronic pain Suicide attempt Schizotypal disorder Bipolar disorder Asthma Missed PTSD (post-traumatic stress disorder) Generalized anxiety disorder with panic attacks Major depressive disorder Surgical History Surgical History H/O dilation and curettage Family History Family History Father Heart disease Mother Depression Anxiety Alcohol abuse Grandparent Alcohol abuse Heart disease Diabetes mellitus Hypertension Depression Anxiety Social History Social History Social History: Caffeine-Coffee/tea/soda 3 cups daily Smoking status: Former smoker Additional smoking assessment comments: OCCASIONALLY IN PAST Alcohol intake: current Alcohol use details: OCCASIONALLY WHEN NOT Substance use: never Substance use type: does not use Do You Feel Safe in your Home?: Yes Lack of Transportation: No Lack of Food: Never True Current Housing: Decline to Answer Concerned About Future Housing: Decline to Answer Difficulty Paying Gas/Electric Bills: No Difficulty Paying for Meds: No Currently Unemployed: No Education: High School Diploma/GED Difficulty w/ Childcare or Family Care: No Living arrangements: with family Spiritual care concerns: No Agree to blood products: Yes Meds Home Medications and Allergies Home Medications ?Medication ?Instructions ?Recorded ?Confirmed ?Type gabapentin 600 mg tablet 600 mg PO TID 04/15/23 06/20/24 History duloxetine 30 mg capsule,delayed 30 mg PO QHS #90 caps 10/21/23 06/20/24 Rx release (Cymbalta) duloxetine 60 mg capsule,delayed 60 mg PO QAM #90 caps 10/21/23 06/20/24 Rx release (Cymbalta) propranolol 20 mg tablet 20 mg PO Q12H 06/01/24 06/20/24 History Allergies Allergy/AdvReac Type Severity Reaction Status Date / Time Penicillins Allergy Unknown Swelling Verified 06/20/24 09:46 of Lip/Tongue/Throat aripiprazole (From Abilify) AdvReac Severe Other Verified 06/20/24 09:46 Vital Signs Vital Signs - 24 hr 06/20/24 09:47 Temperature 97.7 F Pulse Rate 87 Respiratory Rate 18 Blood Pressure 108/69 Pulse Oximetry 100 Oxygen Delivery Room Air Exam Const: General: comfortable and no acute distress HENMT: Face/Nose/Sinus: Normal nares present Eyes: General: appearance normal, both eyes and all related structures Neck: Neck: no JVD Resp: Auscultation: clear to auscultation bilaterally Cardio: Rate: regular rate Rhythm: regular rhythm GI: Inspection: non-distended GI Palp: Yes Soft to palpation Skin: General skin exam: normal color Neuro: General: gait normal Speech: normal speech Extrem: General: normal to inspection Psych: Mental Status: mental status grossly normal Assessment and Plan Assessment and plan (1) GERD (gastroesophageal reflux disease): Code(s): K21.9 - Gastro-esophageal reflux disease without esophagitis Status: Acute Assessment and Plan: egd with bx (2) Rectal bleeding: Code(s): K62.5 - Hemorrhage of anus and rectum Status: Acute Assessment and Plan: colonoscopy
--- NOTE | 2024-06-20 10:34 | SUR.OPER ---
EGD [id number]. Colonoscopy start time 1037.
[2024-06-20 10:45] VITALS: BP 94/54; PULSE 72; RESP 17; O2SAT 100
[2024-06-20 10:55] VITALS: BP 100/56; PULSE 81; RESP 17; O2SAT 100
[2024-06-20 11:05] VITALS: BP 106/73; PULSE 67; RESP 16; O2SAT 100
--- OUTSIDE RECORDS SUMMARY | 2024-06-27 01:26 | XMS_ITS | Encounter Summary ---
Author Organization [facility] Address [address] [place] [address]. [place], [place] [id number] [place] [id number] Care Team Providers Care Vice President Of Customer Service Name Role Phone Sydney Richards Primary Care Provider [phone] Reason for Visit * Reason Comments Blood In Stool Encounter Details Date Type Department Care Team (Late st Contact Info) Description 05/14/2024 7:51 PM LOG DECKMAN - 05/14/2024 8:26 PM LOG DECKMAN Emergency [facility] Emergency Room [address] [place] [address] Sinan Rodriguez MD [address] [place] [id number] Blood In Stool Discharge Disposition: Home or Self Care (Routine Discharge) Social History Tobacco Use Types Packs/Day Years Used Date Smoking Tobacco: Every Day Cigarettes Smokeless Tobacco: Never Alcohol Use Standard Drinks/Week Comments Yes 0 (1 standard drink = 0.6 oz pur e alcohol) socially Comments No Sex and Gender Information Value Date Recorded Sex Assigned at Not on file Legal Sex Female 5:46 PM CDT Gender Identity Not on file Sexual Orientation Not on file documented as of this encounter Last Filed Vital Signs Vital Sign Reading Time Taken Comments Blood Pressure 108/70 05/14/2024 7:57 PM LOG DECKMAN Pulse 74 05/14/2024 7:57 PM LOG DECK[facility] Temperature 36.8 ??C (98.2 ??F) 05/14/2024 7:57 PM CS T Respiratory Rate 18 05/14/2024 7:57 PM LOG DECKMAN Oxygen Saturation 98% 05/14/2024 7:57 PM LOG DECKMAN Inhaled Oxygen Concentration - - Weight 68.5 kg (151 lb 0.2 oz) 05/14/2024 7:57 P M LOG DECK[facility] Height 172.7 cm (5' 8 ) 05/14/2024 7:57 PM LOG DECKMAN Body Mass Index 22.96 05/14/2024 7:57 PM LOG DECKMAN documented in this encounter Discharge Instructions * Discharge Instructions* Sinan Rodriguez MD - 05/14/2024 8:14 PM LOG DECKMAN Bentyl as needed for cramping pain. Rest. Drink plenty of fluids. Follow up with your PCP. Return to the ED for any concerns. Our practice is committed to providing you the very best in healthcare. We want to hear from you! Please fill out the survey you get from us. Your feedback is anonymous & helps us improve the patient experience for you and others in the community we serve. DECKMAN * Attachments The following attachments cannot be sent through Care Everywhere. * Bloody Stools Discharge Instructions, Adult (Chinese) documented in this encounter Medications at Time of Discharge DULoxetine (CYMBALTA) 30 MG capsule Take 1 capsule (30 mg total) by mouth nightly at bedtime. DULoxetine (CYMBALTA) 60 MG capsule Take 1 capsule (60 mg total) by mouth every morning. gabapentin (NEURONTIN) 600 MG tablet Take 1 tablet (600 mg total) by mouth 3 (three) times daily. dicyclomine (BENTYL) 20 MG tablet Take 1 tablet (20 mg total) by mouth every 6 (six) hours for 5 days. 20 tablet 05/14/2024 05/19/2024 documented as of this encounter ED Notes * Sinan Rodriguez MD - 05/14/2024 8:15 PM CST [facility] EM[facility]ENCY [facility] NOTE Patient Name: Lizzie Rosales Date of : 2000 Date of Service: 05/14/2024 Provider at Bedside Date/Time Event User Comments 05/14/241955 Provider at Bedside Assessing Patient SINAN RODRIGUEZ -- Chief Complaint Patient presents with Blood In Stool HISTORY OF PRESENT ILLNESS Patient is a 23-year-old female. Patient presents with bloody stool x 1 today. This has happened before but today there was more blood in the bowl and on the toilet paper. No rectal pain. No pain with wiping. She has history of bloody stool and is scheduled for a colonoscopy next month. No abdominal pain. No nausea or vomiting. Eating and drinking normally. REVIEW OF SYSTEMS Review of Systems Constitutional: Negative for chills and fever. HENT: Negative for nosebleeds. Eyes: Negative for photophobia. Respiratory: Negative for shortness of breath. Cardiovascular: Negative for chest pain. Gastrointestinal: Positive for blood in stool. Negative for diarrhea, nausea and vomiting. Genitourinary: Negative for difficulty urinating. Musculoskeletal: Negative for back pain. Neurological: Negative for dizziness. Psychiatric/Behavioral: Negative for agitation. All other systems reviewed and are negative. PAST HISTORY Past Medical History: Past Medical History: Diagnosis Date Anxiety disorder, unspecified Depression GERD (gastroesophageal reflux disease) Hypermobility arthralgia Past Surgical History: Past Surgical History: Procedure Laterality Date DILATION/CURETTAGE,DIAGNOSTIC Social History: Social History Tobacco Use Smoking status: Every Day Types: Cigarettes Smokeless tobacco: Never Substance Use Topics Alcohol use: Yes Comment: socially Family History: No family history on file. Medications: The patient's home medications section has been reviewed. Prior to Admission medications Medication Sig Start Date End Date Taking? Authorizing Provider dicyclomine (BENTYL) 20 MG tablet Take 1 tablet (20 mg total) by mouth every 6 (six) hours for 5 days. 05/14/24 05/19/24 Yes Sinan Rodriguez MD DULoxetine (CYMBALTA) 30 MG capsule Take 1 capsule (30 mg total) by mouth nightly at bedtime. Yes Default History Genericprovider DULoxetine (CYMBALTA) 60 MG capsule Take 1 capsule (60 mg total) by mouth every morning. Yes Default History Genericprovider gabapentin (NEURONTIN) 600 MG tablet Take 1 tablet (600 mg total) by mouth 3 (three) times daily. Yes Default History Genericprovider Allergies: Review of patient's allergies indicates: Allergen Reactions Penicillins Anaphylaxis Lamotrigine Rash Not SJS PHYSICAL EXAM Patient Vitals for the past 24 hrs: BP Temp Temp src Pulse Resp SpO2 Height Weight 11/17/24 1957 108/70 98.2 ??F (36.8 ??C) Temporal 74 18 98 % 1.727 m (5' 8 ) 68.5 kg (151 lb 0.2 oz) Physical Exam Exam conducted with a picker box operator present (Debbie EULA). Constitutional: General: She is not in acute distress. Appearance: She is not ill-appearing or toxic-appearing. HENT: Head: Normocephalic. Eyes: Conjunctiva/sclera: Conjunctivae normal. Cardiovascular: Rate and Rhythm: Normal rate. Pulmonary: Effort: Pulmonary effort is normal. Abdominal: General: There is no distension. Palpations: Abdomen is soft. Tenderness: There is no abdominal tenderness. Genitourinary: Rectum: External hemorrhoid present. Comments: Medium sized external hemorrhoid at the 5 o'clock position Musculoskeletal: General: No deformity. Skin: General: Skin is dry. Neurological: General: No focal deficit present. Mental Status: She is alert. Psychiatric: Mood and Affect: Mood normal. Affect is blunt. DIAGNOSTIC DATA Labs No results found for this visit on 05/14/24. If applicable, laboratory results above were independently viewed and interpreted by me. Imaging No orders to display If applicable, imaging results above were independently viewed and interpreted by me. EKG No results found for this visit on 05/14/24. If applicable, EKG contemporaneously interpreted by me, and treatment decisions made in real time based on this interpretation. MEDICATIONS GIVEN IN ED Medications - No data to display MEDICAL DECISION MAKING MDM Number of Diagnoses or Management Options Blood in stool Diagnosis management comments: Patient well-appearing with a benign exam and normal vital signs. She does have an external hemorrhoid. I have advised her to drink fluids and use stool softeners and laxatives as needed. She has no abdominal tenderness. I have low suspicion of acute pathology. I have prescribed her Bentyl at her request as she has taken this previously. She will follow-up with outpatient providers and keep her appointment for colonoscopy next month. On reevaluation, the patient is ambulatory in theED, tolerating PO intake and in no distress. The patient will be discharged. Return precautions arediscussed. Additional History Source Other Than Patient: Significant other Social Determinants of Health Significantly Impacting Care: Patient with ongoing challenges regarding health management due to: Lack of access to medical care IMPRESSION AND DISPOSITION CLINICAL IMPRESSION: Clinical Impression Blood in stool (Primary) Disposition: Discharge Prescriptions: Discharge Medication List as of 05/14/2024 8:21 PM START taking these medications Details dicyclomine (BENTYL) 20 MG tablet Take 1 tablet (20 mg total) by mouth every 6 (six) hours for 5 days., Starting 05/14/2024, Until Wed05/19/2024, Eprescribe Sinan Rodriguez MD To patients reading this note: Please be advised that the primary purpose of this note is to communicate with your current and future medical teams. Standard sentence structure is not always used. Medical terminology and abbreviations are often used. This document was generated in part using voice recognition software, occasional wrong-word or ???sound-alike?? substitutions may have occurred due to the inherent limitations of voice recognition software. Read the chart carefully and recognize, using context, where these substitutions have occurred. Sinan Rodriguez MD 05/14/242123 DECKMAN * Debbie Dunlap RN - 05/14/2024 7:53 PM CST To ED with c/o blood in stool, states blood is in toilet and on toilet paper, she [facility]. She states that today it was accompanied by pain that was really bad soit scared her. Rates pain 5/10 has taken pain medication, but she is able to deal but it is distracting DECKMAN documented in this encounter Plan of Treatment Not on file documented as of this encounter Visit Diagnoses Diagnosis Blood in stool- Primary documented in this encounter Care Teams Vice President Of Customer Service Relationship Specialty Start Date End Date Sydney Richards DO [address] [place] [address] PCP - General FAMILY PRACTICE 04/05/24 documented as of this encounter
--- OUTSIDE RECORDS SUMMARY | 2024-06-27 01:26 | XMS_ITS | Encounter Summary ---
Author Organization [facility] Address [address] [place] [address] Phone Care Team Providers Care Quality Improvement Analyst Name Role Phone Sydney Richards DO Primary Care Provider + Sydney Richards DO Unavailable [phone] Reason for Visit * Reason Onset Date Comments Scheduling Appointments 03/01/2024 Encounter Details Date Type Department Care Team (Late st Contact Info) Description 03/01/2024 Telephone [facility] Ophthalmology [address] [place] [address] Jessica Cancino MD [address] [address] Scheduling Appointments Social History Tobacco Use Types Packs/Day Years Used Date Smoking Tobacco: Never Smokeless Tobacco: Never Personal Safety Answer Date Recorded Getting School Help Needed Not on file 07/18 Comments Unknown Sex and Gender Information Value Date Recorded Sex Assigned at Not on file Legal Sex Female 9:59 AM TALENT DIRECTOR Gender Identity Not on file Sexual Orientation Not on file documented as of this encounter Miscellaneous Notes * Telephone Encounter - Tanna Roque - 03/02/2024 11:04 AM CDT RECORD FROM [facility] UPLOADED INTO CHART FOR REVIEW * Telephone Encounter - Princess Kya - 03/01/2024 2:56 PM CDT I spoke with Linda at [facility] and provided our fax number to send notes for 05/23/[address] Cancino * Telephone Encounter - Daria Abraham RMA - 03/01/2024 2:40 PM CDT New Patient Appointment: Is Appointment Scheduled? Yes If yes: Date of Appointment? 05.23.24 Provider Scheduled with: Dr Cancino If No: Why? N/A Referring doctor: Patternmaker Helper at [facility] Referring Physician Specialty: Patternmaker Helper Referring doctor contact information: [phone] Reason/Diagnoses: visual snow syndrome How long has patient been experiencing symptoms?: over 10 years Appt Needed: Next Available If sooner than next available: Referring provider must specify reason for urgency: N/A Please confirm that you have requested records be faxed. yes Additional comments: please contact pt if rescheduling is needed PT# [phone] documented in this encounter Plan of Treatment Not on file documented as of this encounter Visit Diagnoses Not on filedocumented in this encounter Care Teams Quality Improvement Analyst Relationship Specialty Start Date End Date Sydney Richards DO PCP - General Family Medicine 10/15/22 Sydney Richards DO Family Medicine 10/15/22 documented as of this encounter
--- OUTSIDE RECORDS SUMMARY | 2024-06-27 01:26 | XMS_ITS | Clinical Summary ---
Author Organization [facility] Address [address] [place] [address]. [place] [address] [place] [address] Care Team Providers Care Roll Carrier Name Role Phone Sydney Richards DO Primary Care Provider [phone] Allergies Active Allergy Reactions Criticality Noted Date Comments Lamotrigine Rash Medium 06/19/2020 Not SJS Penicillins Anaphylaxis High 04/05/2024 Medications DULoxetine (CYMBALTA) 60 MG capsule Take 1 capsule (60 mg total) by mouth every morning. Active DULoxetine (CYMBALTA) 30 MG capsule Take 1 capsule (30 mg total) by mouth nightly at bedtime. Active gabapentin (NEURONTIN) 600 MG tablet Take 1 tablet (600 mg total) by mouth 3 (three) times daily. 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 - 05/14/2024 8:26 PM [facility] Emergency [facility] Emergency Room [id number] [place] [id number] Sinan Rodriguez MD Blood In Stool Discharge Disposition: Home or Self Care (Routine Discharge) 05/14/2024 Travel 04/05/2024 5:47 PM CDT - 04/05/2024 8:57 PM CDT Emergency [facility] [place] [address] Gabby Paerl MD Musculoskeletal Problem Discharge Disposition: Home or Self Care (Routine Discharge) 04/05/2024 Travel from Last 3 Months Social History Tobacco Use Types Packs/Day Years Used Date Smoking Tobacco: Every Day Cigarettes Smokeless Tobacco: Never Tobacco Cessation:Ready to Q uit: Not Asked; Counseling Given: Not Answered Alcohol Use Standard Drinks/Week Comments Yes 0 (1 standard drink = 0.6 oz pur e alcohol) socially Comments No Sex and Gender Information Value Date Recorded Sex Assigned at Not on file Legal Sex Female 5:46 PM CDT Gender Identity Not on file Sexual Orientation Not on file Last Filed Vital Signs Vital Sign Reading Time Taken Comments Blood Pressure 108/70 05/14/2024 7:57 PM JOURNEYMAN MACHINIST Pulse 74 05/14/2024 7:57 PM JOURNEYMAN MACHINIST Temperature 36.8 ??C (98.2 ??F) 05/14/2024 7:57 PM CS T Respiratory Rate 18 05/14/2024 7:57 PM JOURNEYMAN MACHINIST Oxygen Saturation 98% 05/14/2024 7:57 PM JOURNEYMAN MACHINIST Inhaled Oxygen Concentration - - Weight 68.5 kg (151 lb 0.2 oz) 05/14/2024 7:57 P M JOURNEYMAN MACHINIST Height 172.7 cm (5' 8 ) 05/14/2024 7:57 PM JOURNEYMAN MACHINIST Body Mass Index 22.96 05/14/2024 7:57 PM JOURNEYMAN MACHINIST Plan of Treatment Health Maintenance Due Date Last Done Comments Cervical Cancer Screening Pap Smear (Age 21 to 29) Every 3 Years 2002 Cervical Cancer Screening 2002 Annual Physical 2005 Pneumococcal Vaccine: Pediatrics (0 to 5 Years) and At-Risk Patients (6 to 64 Years) (1 of 2 - PCV) 2008 06/02/2004, 01/26/2003, 2002, Additional history exists Chlamydia Screening Females ages 16-24 2018 Hepatitis C 2020 DTaP, Tdap and Td Vaccines (7 - Td or Tdap) 12/19/2023 12/18/2013, 01/11/2008, 06/02/2004, Additional history exists COVID-19 Vaccine ( - season) 2024 10/17/2020, 09/23/2020 Influenza Adult (#1) 2024 05/19/2020, 04/25/2019, 04/09/2018, Additional history exists Hepatitis B Vaccines Completed 05/17/2003, 2002, 2002 HPV Vaccines Completed 10/23/2014, 04/28, 12/18/2013 Meningococcal Vaccine Completed 02/02/2023 , 02/02/2020, 12/18/2013 RSV Immunizations Under 20 Months Aged Out No longer eligible based on patient's age to complete this topic Procedures Procedure Name Priority Date/Time Associated Diagnosis Comments ECG 12-LEAD STAT 04/05/2024 8:10 PM CDT ECG 12-LEAD STAT 04/05/2024 6:17 PM CDT CK (CPK) STAT 04/05/2024 6:08 PM CDT CHORIONIC GONADOTROPIN HCG QL STAT 04/05/2024 6:08 PM CDT TROPONIN, QUANT STAT 04/05/2024 6:08 PM CDT COMPREHENSIVE METABOLIC PANEL STAT 04/05/2024 6:08 PM CDT CBC W/DIFF AUTOMATED STAT 04/05/2024 6:08 PM CDT from Last 3 Months Results * ECG 12 lead (04/05/2024 8:10 PM CDT) Only the most recent of2 resultswithin the time period is included. 04/05/2024 8:10 PM CDT Narrative [facility] - 04/06/2024 10:04 AM CDT ?Movillecar Carballo ? [address] ? Test Date: ?2024-04-05 Pat Name: ? LIZZIE ROSALES ? Department: ?? 41 ? Room: ? [id number] Gender: ? F ?Power Bender Operator: ?? CB : ?2000 ? Requested By: PIERRE NICOLAS Order Number: [id number] ? Reading MD: ?? Paban Williams ? Measurements Intervals ?[place] ? Rate: ? 94 ? P: ?53 CA: ? 152 ?QRS: ?77 QRSD: ? 87 ? T: ?61 QT: ? 349 ? QTc: ?437 ? Interpretive Statements SINUS RHYTHM WITH OCCASIONAL VENTRICULAR PREMATURE COMPLEXES Compared to ECG 04/05/2024 18:17:15 Ventricular premature complex(es) now present Procedure Note Suzy Kramer MD - 04/06/[address] Test Date: 2024-04-05 Pat Name: LIZZIE ROSALES Department: 41 Room: [place] [address] Gender: F Power Bender Operator: NEIDA : 2000 Requested By: GABBY PEARL Order Number: [id number] Reading MD: Suzy Kramer Measurements Intervals [place] Rate: 94 P: 53 CA: 152 QRS: 77 QRSD: 87 T: 61 QT: 349 QTc: 437 Interpretive Statements SINUS RHYTHM WITH OCCASIONAL VENTRICULAR PREMATURE COMPLEXES Compared to ECG 04/05/2024 18:17:15 Ventricular premature complex(es) now present us Gabby Pearl MD ECG ORDERABLES Final Result [facility] RAD * (ABNORMAL) COMPREHENSIVE METABOLIC PANEL (04/05/2024 6:08 PM CDT) GLUCOSE 101(H) 70 - 99 MG/DL 04/05/2024 7:08 PM CDT [facility] BUN 6(L) 7 - 18 MG/DL 04/05/2024 7:08 PM CDT [facility] CREATININE S/P/B 0.72 0.55 - 1.02 MG/DL 04/05/2024 7:08 PM CDT [facility] SODIUM S/P/B 141 136 - 145 MMOL/L 04/05/2024 7:08 PM CDT [facility] POTASSIUM S/P/B 4.1 3.5 - 5.1 MMOL/L 04/05/2024 7:08 PM CDT [facility] CHLORIDE S/P/B 109 97 - 115 MMOL/L 04/05/2024 7:08 PM CDT [facility] CO2 27.8 21 - 32 MMOL/L 04/05/2024 7:08 PM CDT [facility] CALCIUM S/P/B 8.7 8.5 - 10.1 MG/DL 04/05/2024 7:08 PM CDT [facility] BILIRUBIN TOTAL S/P/B 0.9 0.2 - 1.2 MG/DL 04/05/2024 7:08 PM CDT [facility] Comment: THIS ASSAY IS NOT RECOMMENDED FOR PATIENTS UNDERGOING TREATMENT WITH ELTROMBOPAG DUE TO THE POTENTIAL FOR FALSELY ELEVATED RESULTS. TOTAL PROTEIN S/P/B 6.4 6.4 - 8.2 G/DL 04/05/2024 7:08 PM CDT [facility] ALBUMIN S/P/B 3.5 3.4 - 5.0 G/DL 04/05/2024 7:08 PM CDT [facility] AST 20 15 - 37 U/L 04/05/2024 7:08 PM CDT [facility] ALT 18 14 - 55 U/L 04/05/2024 7:08 PM CDT [facility] ALKALINE PHOSPHATASE S/P/B 114 50 - 136 U/L 04/05/2024 7:08 PM CDT [facility] ANION GAP 4.2 2 - 10 MMOL/L 04/05/2024 7:08 PM CDT [facility] BUN CREATININE RATIO 8.3 6 - 26 04/05/2024 7:08 PM CDT [facility] A/G RATIO 1.2 1.0 - 2.0 RATIO 04/05/2024 7:08 PM CDT [facility] GFR ESTIMATE >90 >90 ML/MIN/1.7 3 M2 04/05/2024 7:08 PM CDT [facility] Comment: NOTE: eGFR is not calculated for patients <18 years of age or gender unknown. This is an estimated GFR calculation using the new CKD EPI creatinine equation without race and so does not require a correction factor for race. This estimated GFR should not be used for calculating drug doses. 04/05/2024 6:08 PM CDT us Gabby Pearl MD LABORATORY Final Result [facility] [address] [place] [address], [place] [phone] * PREG TEST SERUM (HCG QUALITATIVE) (04/05/2024 6:08 PM CDT) PREG SCREEN-SERUM NEGATIVE 04/05/2024 7:11 PM CDT [facility] 04/05/2024 6:08 PM CDT us Gabby Pearl MD LABORATORY Final Result [facility] [address] [place] [address], [place] [phone] * (ABNORMAL) CBC W/DIFF AUTOMATED (04/05/2024 6:08 PM CDT) WBC 6.82 4.5 - 11.0 x10'3/uL 04/05/2024 6:22 PM CDT [facility] RBC 4.00(L) 4.20 - 5.40 x10'6/uL 04/05/2024 6:22 PM CDT [facility] HGB 11.3(L) 12.0 - 16.0 G/DL 04/05/2024 6:22 PM CDT [facility] HCT 34.7(L) 38.0 - 48.0 % 04/05/2024 6:22 PM CDT [facility] MCV 86.8 81.0 - 99.0 FL 04/05/2024 6:22 PM CDT [facility] MCH 28.3 27.0 - 31.0 PG 04/05/2024 6:22 PM CDT [facility] MCHC 32.6 32.0 - 36.0 G/DL 04/05/2024 6:22 PM CDT [facility] RDW 14.9(H) 11.5 - 14.5 % 04/05/2024 6:22 PM CDT [facility] PLT 281 130 - 400 x10'3/uL 04/05/2024 6:22 PM CDT [facility] MPV 9.6 9.3 - 12.2 FL 04/05/2024 6:22 PM CDT [facility] DIFFERENTIAL TYPE AUTOMATED DIFFERENTIAL 04/05/2024 6:22 PM CDT [facility] NEUTROPHILS % 57.5 % 04/05/2024 6:22 PM CDT [facility] LYMPHOCYTES % 30.9 % 04/05/2024 6:22 PM CDT [facility] MONOCYTES % 8.9 % 04/05/2024 6:22 PM CDT [facility] EOSINOPHILS 1.8 % 04/05/2024 6:22 PM CDT [facility] BASOPHILS 0.6 % 04/05/2024 6:22 PM CDT [facility] IMMATURE GRANS % 0.3 % 04/05/20 6:22 PM CDT [facility] ABS. NEUTROPHILS 3.92 1.80 - 7.70 x10'3/uL 04/05/2024 6:22 PM CDT [facility] ABS. LYMPHOCYTES 2.11 1.00 - 4.80 x10'3/uL 04/05/2024 6:22 PM CDT [facility] ABS. MONOCYTES 0.61 0.24 - 0.86 x10'3/uL 04/05/2024 6:22 PM CDT [facility] ABS. EOSINOPHILS 0.12 0.04 - 0.36 x10'3/uL 04/05/2024 6:22 PM CDT [facility] ABS. BASOPHILS 0.04 0.01 - 0.08 x10'3/uL 04/05/2024 6:22 PM CDT [facility] ABS. IMMATURE GRANULOCYTES 0.02 0.00 - 0.49 x10'3/uL 04/05/2024 6:22 PM CDT [facility] 04/05/2024 6:08 PM CDT us Gabby Pearl MD LABORATORY Final Result [facility] [address] [place] [address], [place] [phone] * TROPONIN, QUANT (04/05/2024 6:08 PM CDT) TROPONIN I HIGH SENSITIVITY 4 <54 ng/L 04/05/2024 7:08 PM CDT [facility] Comment: HIGH DOSES OF BIOTIN, TROPONIN-SPECIFIC AUTOANTIBODIES, AND ANTIBODY THERAPY CONTAINING HAMA MAY INTERFERE WITH THIS TEST RESULT. CORRELATION TO CLINICAL HISTORY AND PRESENTATION RECOMMENDED. 04/05/2024 6:08 PM CDT us Gabby Pearl MD LABORATORY Final Result [facility] [address] [place] [address], [place] [phone] * CK (CPK) (04/05/2024 6:08 PM CDT) CPK 116 21 - 215 U/L 04/05/2024 7:08 PM CDT [facility] 04/05/2024 6:08 PM CDT Gabby Pearl MD LABORATORY Final Result Performing Organization Address City/[facility]/ZIP Co de Phone Number [facility] [address] [place] [address], [place] [phone] from Last 3 Months Insurance [facility] Care Teams Roll Carrier Relationship Specialty Start Date End Date Sydney Richards DO [address] [place] [address] PCP - General FAMILY PRACTICE 04/05/24
--- OUTSIDE RECORDS SUMMARY | 2024-06-27 01:26 | XMS_ITS | Encounter Summary ---
Author Organization [facility] Address [address] [place] [address]. [place] [address] [place] [address] Care Team Providers Care Offender Job Retention Specialist Name Role Phone Sydney Richards Primary Care Provider [phone] Reason for Visit * Reason Comments Musculoskeletal Problem Encounter Details Date Type Department Care Team (Late st Contact Info) Description 04/05/2024 5:47 PM CDT - 04/05/2024 8:57 PM CDT Emergency [facility] [place] [address] Briana Pearl MD [address] [place], [place] [address] Musculoskeletal Problem Discharge Disposition: Home or Self [...] Sign Reading Time Taken Comments Blood Pressure 100/74 04/05/2024 8:30 PM CDT Pulse 93 04/05/2024 8:30 PM CDT Temperature 36.8 ??C (98.3 ??F) 04/05/2024 5:54 PM CD T Respiratory Rate 24 04/05/2024 8:30 PM CDT Oxygen Saturation 99% 04/05/2024 8:30 PM CDT Inhaled Oxygen Concentration - - Weight 68.5 kg (151 lb 0.2 oz) 04/05/2024 5:54 P M CDT Height 172.7 cm (5' 8 ) 04/05/2024 5:54 PM CDT Body Mass Index 22.96 04/05/2024 5:54 PM CDT documented in this encounter Discharge Instructions * Discharge Instructions* Briana Pearl MD - 04/05/2024 8:48 PM CDT Stop abilify * Attachments The following attachments cannot be sent through Care Everywhere. * Adverse Drug Reactions Discharge Instructions, Adult (British) documented in this encounter Medications at Time of Discharge DULoxetine (CYMBALTA) 30 MG capsule Take 1 capsule (30 mg total) by mouth nightly at bedtime. DULoxetine (CYMBALTA) 60 MG capsule Take 1 capsule (60 mg total) by mouth every morning. gabapentin (NEURONTIN) 600 MG tablet Take 1 tablet (600 mg total) by mouth 3 (three) times daily. ARIPiprazole (ABILIFY) 10 MG tablet Take 1 tablet (10 mg total) by mouth daily. 05/14/2024 dicyclomine (BENTYL) 20 MG tablet Take 1 tablet (20 mg total) by mouth every 8 (eight) hours as needed (abdominal pain). 05/14/2024 famotidine (PEPCID) 20 MG tablet Take 1 tablet (20 mg total) by mouth daily. 05/14/2024 documented as of this encounter ED Notes * Cece Castillo - 04/05/2024 8:06 PM CDT Pt refusing CT. * Jaz Stevenson RN - 04/05/2024 6:43 PM CDT Patient requesting this nurse to call Manish to make aware of patient being here. Manish is patient's ex-fiance. Message left per her request. * Jaz Stevenson RN - 04/05/2024 6:20 PM CDT ERP made aware of patient having approximately 15sec episode while primary nurses were triaging her. Concerns mentioned for possible dystonia after speaking with pharmacy. Orders placed for benadryl. * Bernie Molina RN-LP - 04/05/2024 6:15 PM CDT During lab draw, pt tensed up on left side and had facial twitching. Lasted approx 15-20 secs. Pt A&O x 4 before and after episode. No s/s of distress. * Briana Pearl MD - 04/05/2024 5:59 PM CDT [facility] [place] [place] EMERGENCY DEPARTMENT ENCOUNTER Chief Complaint Chief Complaint Patient presents with Musculoskeletal Problem History of Present Illness Provider at Bedside Date/Time Event User Comments 04/05/24 3541 Provider at Bedside Assessing Patient BRIANA PEARL -- The patient is a 23-year-old female with a PMH of anxiety, depression, GERD, and hypermobility arthralgia who presents to the ED by EMS from [facility] for evaluation of left facial twitching, left arm, and left leg twitching. Patient started abilify today and reports she took that for the first time at 1500. She reports approximately 20 minutes later she noticed the twitching. She takes gabapentin and duloxetine for home meds. Patient also complains of dry mouth, shortness and breath and mild chest heaviness that began with twitching onset. Denies pain radiating to jaw or arm. Denies any provoking or relieving factors. Patient endorses she is sexually active, denies oral contraceptive use. She endorses tobacco use, marijuana use, and alcohol use socially. Medical History ALLERGIES: Review of patient's allergies indicates: Allergen Reactions Penicillins Anaphylaxis Lamotrigine Rash Not SJS MEDICATIONS: Prior to Admission medications Medication Sig Start Date End Date Taking? Authorizing Provider ARIPiprazole (ABILIFY) 10 MG tablet Take 1 tablet (10 mg total) by mouth daily. Yes Default HistoryGenericprovider dicyclomine (BENTYL) 20 MG tablet Take 1 tablet (20 mg total) by mouth every 8 (eight) hours as needed (abdominal pain). Yes Default History Genericprovider DULoxetine (CYMBALTA) 30 MG capsule Take 1 capsule (30 mg total) by mouth nightly at bedtime. Yes Default History Genericprovider DULoxetine (CYMBALTA) 60 MG capsule Take 1 capsule (60 mg total) by mouth every morning. Yes Default History Genericprovider famotidine (PEPCID) 20 MG tablet Take 1 tablet (20 mg total) by mouth daily. Yes Default History Genericprovider gabapentin (NEURONTIN) 600 MG tablet Take 1 tablet (600 mg total) by mouth 3 (three) times daily. Yes Default History Genericprovider PAST MEDICAL HISTORY: Past Medical History: Diagnosis Date Anxiety disorder, unspecified Depression GERD (gastroesophageal reflux disease) Hypermobility arthralgia PAST SURGICAL HISTORY: Past Surgical History: Procedure Laterality Date DILATION/CURETTAGE,DIAGNOSTIC FAMILY HISTORY: No family history on file. SOCIAL HISTORY: Social History Tobacco Use Smoking status: Every Day Types: Cigarettes Smokeless tobacco: Never Substance Use Topics Alcohol use: Yes Comment: socially Drug use: Yes Types: Marijuana Review of Systems Review of Systems Constitutional: Negative for chills, fatigue and fever. HENT: Dry mouth Respiratory: Positive for shortness of breath. Negative for cough. Cardiovascular: Positive for chest pain. Negative for leg swelling. Gastrointestinal: Negative for abdominal pain, constipation, diarrhea, nausea and vomiting. Genitourinary: Negative for dysuria. Musculoskeletal: Negative for back pain. Neurological: Positive for tremors. Physical Exam Filed Vitals: 04/05/24 1754 04/05/24 1900 04/05/241999 BP: 122/81 113/62 117/77 Pulse: 93 83 84 Resp: 20 21 18 Temp: 98.3 ??F (36.8 ??C) TempSrc: Oral SpO2: 100% 98% 99% Weight: 68.5 kg (151 lb 0.2 oz) Height: 1.727 m (5' 8 ) Physical Exam Vitals and nursing note reviewed. Constitutional: Appearance: She is well-developed. HENT: Head: Normocephalic and atraumatic. Nose: Nose normal. Eyes: Pupils: Pupils are equal, round, and reactive to light. Neck: Thyroid: No thyromegaly. Cardiovascular: Rate and Rhythm: Normal rate and regular rhythm. Heart sounds: Normal heart sounds. No murmur heard. No friction rub. No gallop. Abdominal: General: Bowel sounds are normal. There is no distension. Palpations: Abdomen is soft. Tenderness: There is no abdominal tenderness. Musculoskeletal: Cervical back: Normal range of motion and neck supple. Skin: General: Skin is warm and dry. Neurological: Mental Status: She is alert and oriented to person, place, and time. Cranial Nerves: No cranial nerve deficit. Sensory: No sensory deficit. Psychiatric: Behavior: Behavior normal. Judgment: Judgment normal. Diagnostic Studies / Procedures ELECTROCARDIOGRAMS: Results for orders placed or performed during the hospital encounter of 04/05/24 ECG 12 lead Narrative [facility] Test Date: 2024-04-05 Pat Name: LIZZIE TODDCK Department: 41 Room: [id number] Gender: F Family Psychologist: [id number] : 2000 Requested By: BRIANA PEARL Order Number: [id number] Reading MD: Measurements Intervals [place] Rate: 94 P: 42 CA: 146 QRS: 71 QRSD: 83 T: 44 QT: 352 QTc: 442 Interpretive Statements SINUS RHYTHM No previous ECG available for comparison ECG 12 lead Narrative [facility] [address] Test Date: 2024-04-05 Pat Name: LIZZIE [facility] Department: 41 Room: [id number] Gender: F Family Psychologist: CB : 2000 Requested By: BRIANA PEARL Order Number: [id number] Reading MD: Measurements Intervals [place] Rate: 94 P: 53 CA: 152 QRS: 77 QRSD: 87 T: 61 QT: 349 QTc: 437 Interpretive Statements SINUS RHYTHM WITH OCCASIONAL VENTRICULAR PREMATURE COMPLEXES Compared to ECG 04/05/2024 18:17:15 Ventricular premature complex(es) now present LABORATORY STUDIES: Results for orders placed or performed during the hospital encounter of 04/05/24 CBC W/DIFF AUTOMATED Result Value Ref Range WBC 6.82 4.5 - 11.0 x10'3/uL RBC 4.00 (L) 4.20 - 5.40 x10'6/uL HGB 11.3 (L) 12.0 - 16.0 G/DL HCT 34.7 (L) 38.0 - 48.0 % MCV 86.8 81.0 - 99.0 FL MCH 28.3 27.0 - 31.0 PG MCHC 32.6 32.0 - 36.0 G/DL RDW 14.9 (H) 11.5 - 14.5 % PLT 281 130 - 400 x10'3/uL MPV 9.6 9.3 - 12.2 FL DIFFERENTIAL TYPE AUTOMATED DIFFERENTIAL NEUTROPHILS % 57.5 % LYMPHOCYTES % 30.9 % MONOCYTES % 8.9 % EOSINOPHILS 1.8 % BASOPHILS 0.6 % IMMATURE GRANS % 0.3 % ABS. NEUTROPHILS 3.92 1.80 - 7.70 x10'3/uL ABS. LYMPHOCYTES 2.11 1.00 - 4.80 x10'3/uL ABS. MONOCYTES 0.61 0.24 - 0.86 x10'3/uL ABS. EOSINOPHILS 0.12 0.04 - 0.36 x10'3/uL ABS. BASOPHILS 0.04 0.01 - 0.08 x10'3/uL ABS. IMMATURE GRANULOCYTES 0.02 0.00 - 0.49 x10'3/uL COMPREHENSIVE METABOLIC PANEL Result Value Ref Range GLUCOSE 101 (H) 70 - 99 MG/DL BUN 6 (L) 7 - 18 MG/DL CREATININE S/P/B 0.72 0.55 - 1.02 MG/DL SODIUM S/P/B 141 136 - 145 MMOL/L POTASSIUM S/P/B 4.1 3.5 - 5.1 MMOL/L CHLORIDE S/P/B 109 97 - 115 MMOL/L CO2 27.8 21 - 32 MMOL/L CALCIUM S/P/B 8.7 8.5 - 10.1 MG/DL BILIRUBIN TOTAL S/P/B 0.9 0.2 - 1.2 MG/DL TOTAL PROTEIN S/P/B 6.4 6.4 - 8.2 G/DL ALBUMIN S/P/B 3.5 3.4 - 5.0 G/DL AST 20 15 - 37 U/L ALT 18 14 - 55 U/L ALKALINE PHOSPHATASE S/P/B 114 50 - 136 U/L ANION GAP 4.2 2 - 10 MMOL/L BUN CREATININE RATIO 8.3 6 - 26 A/G RATIO 1.2 1.0 - 2.0 RATIO GFR ESTIMATE >90 >90 ML/MIN/1.73 M2 TROPONIN, QUANT Result Value Ref Range TROPONIN I HIGH SENSITIVITY 4 <54 ng/L PREG TEST SERUM (HCG QUALITATIVE) Result Value Ref Range PREG SCREEN-SERUM NEGATIVE CK (CPK) Result Value Ref Range CPK 116 21 - 215 U/L IMAGING STUDIES No orders to display ED Course / Medical Decision Making Patient declined the cta chest Medical Decision Making DD: Amount and/or Complexity of Data Reviewed External Data Reviewed: notes. Details: Reviewed old notes. Labs: ordered. Decision-making details documented in ED Course. Radiology: ordered. Decision-making details documented in ED Course. ECG/medicine tests: ordered. Decision-making details documented in ED Course. Discussion of management or test interpretation with external provider(s): Discussed details and plan with patient. Pulse Ox ordered and interpreted: Saturation: 100 (%) Oxygen Delivery: room air Interpretation: No acute hypoxia at this time. Rhythm strip ordered and interpreted: Normal sinus rhythm. Rate 93. No ectopy. Data reviewed: All current, pertinent and timely studies (laboratory, imaging, and procedures) wereordered and results reviewed by Briana Pearl MD unless otherwise noted. Triage notes and available nursing notes reviewed. Previous medical record reviewed when available. Repeat vital signs reviewed. Medications aspirin chewable tablet 324 mg (324 mg Oral Given 04/05/241820) diphenhydrAMINE (BENADRYL) injection 25 mg (25 mg Intravenous Given 04/05/241822) Clinical Impression Medication reaction (Primary) Current Discharge Medication List Disposition: Discharge Follow-Up: SYDNEY RICHARDS DO I, Carli Berger, acting as a scribe, am personally taking down the notes in the presence of MD Lily. Take no action on this note until reviewed and authenticated by the physician. Briana Pearl MD 04/05/242048 * Jaz Stevenson RN - 04/05/2024 5:52 PM CDT Received by EMS from [facility] with tobacco drummer left facial twitching, left arm, and left leg twitching. Patient started abilify today and reports she took that for the first time at 1500. She reports approximately 20 minutes later she noticed the twitching. She takes gabapentin and duloxetine for home meds. * Mike Balderas RN - 04/05/2024 5:47 PM CDT Bed: 20 Expected date: Expected time: Means of arrival: Comments: RM documented in this encounter Plan of Treatment Not on file documented as of this encounter Procedures Procedure Name Priority Date/Time Associated Diagnosis Comments ECG 12-LEAD STAT 04/05/2024 8:10 PM CDT ECG 12-LEAD STAT 04/05/2024 6:17 PM CDT COMPREHENSIVE METABOLIC PANEL STAT 04/05/2024 6:08 PM CDT CHORIONIC GONADOTROPIN HCG QL STAT 04/05/2024 6:08 PM CDT CBC W/DIFF AUTOMATED STAT 04/05/2024 6:08 PM CDT TROPONIN, QUANT STAT 04/05/2024 6:08 PM CDT CK (CPK) STAT 04/05/2024 6:08 PM CDT documented in this encounter Results * ECG 12 lead (04/05/2024 8:10 PM CDT) 04/05/2024 8:10 PM CDT Narrative [facility] - 04/06/2024 10:04 AM CDT ?[facility] ? [address] [place] [place] ? Test Date: ?2024-04-05 Pat Name: ? LIZZIE ROSALES ? Department: ?? 41 ? Room: ? [id number] Gender: ? F ?Family Psychologist: ?? CB : ?2000 ? Requested By: BRIANA PEARL Order Number: [id number] ? Reading MD: ?? Paban [place] ? Measurements Intervals ?[place] ? Rate: ? 94 ? P: ?53 CA: ? 152 ?QRS: ?77 QRSD: ? 87 ? T: ?61 QT: ? 349 ? QTc: ?437 ? Interpretive Statements SINUS RHYTHM WITH OCCASIONAL VENTRICULAR PREMATURE COMPLEXES Compared to ECG 04/05/2024 18:17:15 Ventricular premature complex(es) now present Procedure Note Suzy Kramer MD - 04/06/[address] [facility] [address] Test Date: 2024-04-05 Pat Name: LIZZIE ROSALES Department: 41 Room: [id number] Gender: F Family Psychologist: NEIDA : 2000 Requested By: BRIANA PEARL Order Number: [id number] Reading : Suzy Kramer Measurements Intervals [place] Rate: 94 P: 53 CA: 152 QRS: 77 QRSD: 87 T: 61 QT: 349 QTc: 437 Interpretive Statements SINUS RHYTHM WITH OCCASIONAL VENTRICULAR PREMATURE COMPLEXES Compared to ECG 04/05/2024 18:17:15 Ventricular premature complex(es) now present us Briana Pearl MD ECG ORDERABLES Final Result [facility] * ECG 12 lead (04/05/2024 6:17 PM CDT) 04/05/2024 6:17 PM CDT Narrative [facility] - 04/06/2024 9:48 AM CDT ?[facility] ? [address] [place] ? Test Date: ?2024-04-05 Pat Name: ? LIZZIE APARNA ? Department: ?? 41 ? Room: ? [id number] Gender: ? F ?Family Psychologist: ?? [id number] : ?2000 ? Requested By: BRIANA PEARL Order Number: [id number] ? Reading MD: ?? Suzy Kramer ? Measurements Intervals ?[place] ? Rate: ? 94 ? P: ?42 CA: ? 146 ?QRS: ?71 QRSD: ? 83 ? T: ?44 QT: ? 352 ? QTc: ?442 ? Interpretive Statements SINUS RHYTHM No previous ECG available for comparison Procedure Note Suzy Kramer MD - 04/06/[address] [facility] [facility] [address] Test Date: 2024-04-05 Pat Name: LIZZIE ROSALES Department: Room: [id number] Gender: F Family Psychologist: [id number] : 2000 Requested By: BRIANA PEARL Order Number: [id number] Reading : Suzy Kramer Measurements Intervals [place] Rate: 94 P: 42 CA: 146 QRS: 71 QRSD: 83 T: 44 QT: 352 QTc: 442 Interpretive Statements SINUS RHYTHM No previous ECG available for comparison us Briana Pearl MD ECG ORDERABLES Final Result [facility] * CK (CPK) (04/05/2024 6:08 PM CDT) CPK 116 21 - 215 U/L 04/05/2024 7:08 PM CDT [facility] 04/05/2024 6:08 PM CDT us Briana Pearl MD LABORATORY Final Result [facility] [address] [place] [address], [place] [phone] * PREG TEST SERUM (HCG QUALITATIVE) (04/05/2024 6:08 PM CDT) PREG SCREEN-SERUM NEGATIVE 04/05/2024 7:11 PM CDT [facility] 04/05/2024 6:08 PM CDT us Briana Pearl MD LABORATORY Final Result Performing Organization Address City/[facility]/ZIP Co de Phone Number [facility] [address] [place] [address], [place] [phone] * TROPONIN, QUANT (04/05/2024 6:08 PM CDT) Pathologist [facility] TROPONIN I HIGH SENSITIVITY 4 <54 ng/L 04/05/2024 7:08 PM CDT [facility] Comment: HIGH DOSES OF BIOTIN, TROPONIN-SPECIFIC AUTOANTIBODIES, AND ANTIBODY THERAPY CONTAINING HAMA MAY INTERFERE WITH THIS TEST RESULT. CORRELATION TO CLINICAL HISTORY AND PRESENTATION RECOMMENDED. 04/05/2024 6:08 PM CDT us Briana Pearl MD LABORATORY Final Result [facility] [address] [place] [address], [place] [phone] * (ABNORMAL) COMPREHENSIVE METABOLIC PANEL (04/05/2024 6:08 PM CDT) [facility] GLUCOSE 101(H) 70 - 99 MG/DL 04/05/2024 7:08 PM CDT [facility] BUN 6(L) 7 - 18 MG/DL 04/05/2024 7:08 PM CDT [facility] CREATININE S/P/B 0.72 0.55 - 1.02 MG/DL 04/05/2024 7:08 PM CDT [facility] SODIUM S/P/B 141 136 - 145 MMOL/L 04/05/2024 7:08 PM CDT [facility] POTASSIUM S/P/B 4.1 3.5 - 5.1 MMOL/L 04/05/2024 7:08 PM CDT [facility] CHLORIDE S/P/B 109 97 - 115 MMOL/L 04/05/2024 7:08 PM CDT [facility] CO2 27.8 21 - 32 MMOL/L 04/05/2024 7:08 PM CDT [facility] CALCIUM S/P/B 8.7 8.5 - 10.1 MG/DL 04/05/2024 7:08 PM CDT [facility] BILIRUBIN TOTAL S/P/B 0.9 0.2 - 1.2 MG/DL 04/05/2024 7:08 PM CDT [facility] Comment: THIS ASSAY IS NOT RECOMMENDED FOR PATIENTS UNDERGOING TREATMENT WITH ELTROMBOPAG DUE TO THE POTENTIAL FOR FALSELY ELEVATED RESULTS. TOTAL PROTEIN S/P/B 6.4 6.4 - 8.2 G/DL 04/05/2024 7:08 PM CDT [facility] ALBUMIN S/P/B 3.5 3.4 - 5.0 G/DL 04/05/2024 7:08 PM CDT [facility] AST 20 15 - 37 U/L 04/05/2024 7:08 PM CDT [facility] ALT 18 14 - 55 U/L 04/05/2024 7:08 PM CDT [facility] ALKALINE PHOSPHATASE S/P/B 114 50 - 136 U/L 04/05/2024 7:08 PM CDT [facility] ANION GAP 4.2 2 - 10 MMOL/L 04/05/2024 7:08 PM CDT [facility] BUN CREATININE RATIO 8.3 6 - 26 04/05/2024 7:08 PM CDT [facility] A/G RATIO 1.2 1.0 - 2.0 RATIO 04/05/2024 7:08 PM CDT [facility] GFR ESTIMATE >90 >90 ML/MIN/1.7 3 M2 04/05/2024 7:08 PM CDT [facility] Comment: NOTE: eGFR is not calculated for patients <18 years of age or gender unknown. This is an estimated GFR calculation using the new CKD EPI creatinine equation without race and so does not require a correction factor for race. This estimated GFR should not be used for calculating drug doses. 04/05/2024 6:08 PM CDT Briana Pearl MD LABORATORY Final Result [facility] [address] [place] [address], [place] [phone] * (ABNORMAL) CBC W/DIFF AUTOMATED (04/05/2024 6:08 PM CDT) WBC 6.82 4.5 - 11.0 x10'3/uL 04/05/2024 6:22 PM CDT [facility] RBC 4.00(L) 4.20 - 5.40 x10'6/uL 04/05/2024 6:22 PM CDT [facility] HGB 11.3(L) 12.0 - 16.0 G/DL 04/05/2024 6:22 PM CDT [facility] HCT 34.7(L) 38.0 - 48.0 % 04/05/2024 6:22 PM CDT [facility] MCV 86.8 81.0 - 99.0 FL 04/05/2024 6:22 PM CDT [facility] MCH 28.3 27.0 - 31.0 PG 04/05/2024 6:22 PM CDT [facility] MCHC 32.6 32.0 - 36.0 G/DL 04/05/2024 6:22 PM CDT [facility] RDW 14.9(H) 11.5 - 14.5 % 04/05/2024 6:22 PM CDT [facility] PLT 281 130 - 400 x10'3/uL 04/05/2024 6:22 PM CDT [facility] MPV 9.6 9.3 - 12.2 FL 04/05/2024 6:22 PM CDT [facility] DIFFERENTIAL TYPE AUTOMATED DIFFERENTIAL 04/05/2024 6:22 PM CDT [facility] NEUTROPHILS % 57.5 % 04/05/2024 6:22 PM CDT [facility] LYMPHOCYTES % 30.9 % 04/05/2024 6:22 PM CDT [facility] MONOCYTES % 8.9 % 04/05/2024 6:22 PM CDT [facility] EOSINOPHILS 1.8 % 04/05/2024 6:22 PM CDT [facility] BASOPHILS 0.6 % 04/05/2024 6:22 PM CDT [facility] IMMATURE GRANS % 0.3 % 04/05/20 6:22 PM CDT [facility] ABS. NEUTROPHILS 3.92 1.80 - 7.70 x10'3/uL 04/05/2024 6:22 PM CDT [facility] ABS. LYMPHOCYTES 2.11 1.00 - 4.80 x10'3/uL 04/05/2024 6:22 PM CDT [facility] ABS. MONOCYTES 0.61 0.24 - 0.86 x10'3/uL 04/05/2024 6:22 PM CDT [facility] ABS. EOSINOPHILS 0.12 0.04 - 0.36 x10'3/uL 04/05/2024 6:22 PM CDT [facility] ABS. BASOPHILS 0.04 0.01 - 0.08 x10'3/uL 04/05/2024 6:22 PM CDT [facility] ABS. IMMATURE GRANULOCYTES 0.02 0.00 - 0.49 x10'3/uL 04/05/2024 6:22 PM CDT [facility] 04/05/2024 6:08 PM CDT Briana Pearl MD LABORATORY Final Result [facility] [address] [place] [address], documented in this encounter Visit Diagnoses Diagnosis Medication reaction- Primary Unspecified adverse effect of unspecified drug, medicinal and biological substance documented in this encounter Administered Medications Inactive Administered Medications - up to 3 most recent administrations Medication Order MAR Action Action Date Dose Rate Site aspirin chewable tablet 324 mg 324 mg, Oral, Once, 1 dose, On Wed04/05/24 at 1815 Given 04/05/2024 6:21 PM CDT 324 mg diphenhydrAMINE (BENADRYL) injection 25 mg 25 mg, Intravenous, Once, 1 dose, On Wed04/05/24 at 1830, For IV administration, give no faster than 25 mg/min. Given 04/05/2024 6:23 PM CDT 25 mg documented in this encounter Active and Recently Administered Medications Times are shown in CDT. Scheduled Medication Order 04/03/2024 04/04/2024 04/05/2024 aspirin chewable tablet 324 mg (COMPLETED) 324 mg, Oral, Once, 1 dose, On Wed04/05/24 at 1815 1821 (Given - Provid er: Bernie Molina RN-LP) diphenhydrAMINE (BENADRYL) injection 25 mg (COMPLETED) 25 mg, Intravenous, Once, 1 dose, On Wed04/05/24 at 1830, For IV administration, give no faster than 25 mg/min. 1823 (Given - Provid er: Bernie Molina RN-LP) documented in this encounter Care Teams Offender Job Retention Specialist Relationship Specialty Start Date End Date Sydney Richards DO [facility] [place] [address] PCP - General FAMILY PRACTICE 04/05/24 documented as of this encounter
--- OUTSIDE RECORDS SUMMARY | 2024-06-27 01:26 | XMS_ITS | Encounter Summary ---
Author Organization [facility] Address [address] [place] [address]. [place], [place] [address] [place] [address] Care Team Providers Care Rv Repair Technician Name Role Phone Sydney Richards DO Primary Care Provider [phone] Encounter Details Date Type Department Care Team (Latest Contact Info) Description 05/14/2024 Travel Social History Tobacco Use Types Packs/Day Years [...] on file documented as of this encounter Plan of Treatment Not on file documented as of this encounter Visit Diagnoses Not on filedocumented in this encounter Care Teams Rv Repair Technician Relationship Specialty Start Date End Date Sydney Richards DO [address] [place] [address] PCP - General FAMILY PRACTICE 04/05/24 documented as of this encounter
--- OUTSIDE RECORDS SUMMARY | 2024-06-27 01:26 | XMS_ITS | Encounter Summary ---
Author Organization [facility] Healthcare Address [address] [place] [address] Care Team Providers Care Hydraulic Strainer Operator Name Role Phone Sydney Richards DO Primary Care Provider + Sydney Richards DO Unavailable [phone] Reason for Referral * MRI/CAT/PET Scan (Routine) - Closed Specialty Diagnoses / Procedures Referred By Contac t Referred To Contact Radiology Diagnoses Multiple sclerosis (HCC) Procedures MRI Cervical Spine W WO Contrast Tarun Neal MD [address] [place] [address] [address] [facility] [place] [address] Phone: tel: fax: [address] [address] Referral ID Status Reason Start Date Expiration Date Visits Re quested Visits Authorized [id number] Closed 01/28/2023 02/27/2024 1 1 Reason for Visit * MRI/CAT/PET Scan (Routine) - Closed Specialty Diagnoses / Procedures Referred By Contac t Referred To Contact Radiology Diagnoses Multiple sclerosis (HCC) Procedures MRI Cervical Spine W WO Contrast Tarun Neal MD [address] [place] [address] [address] [place] [address] Phone: tel: fax:[phone] [address] Referral ID Status Reason Start Date Expiration Date Visits Re quested Visits Authorized [id number] Closed 01/28/2023 02/27/2024 1 1 Encounter Details Date Type Department Care Team (Latest Contact Info) Description 03/02/2023 2:31 PM CDT - 03/02/2023 11:59 PM CDT Hospital Encounter [facility] [address] [place] [address] Multiple sclerosis (HCC) Discharge Disposition: Discharge to home or self care Social History Tobacco Use Types Packs/Day Years Used Date Smoking Tobacco: Never Smokeless Tobacco: Never Comments Unknown Sex and Gender Information Value Date Recorded Sex Assigned at Not on file Legal 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 Gender Identity Not on file Sexual Orientation Not on file documented as of this encounter Discharge Disposition Disposition Code Departure Means Destination Discharge to home or self care documented in this encounter Plan of Treatment Not on file documented as of this encounter Procedures Procedure Name Priority Date/Time Associated Diagnosis Comments MRI CERVICAL SPINE W WO CONTRAST Schedule GABRIEL, Read Routine (Patient lives out of area) 03/02/2023 3:43 PM CDT Multiple sclerosis (HCC) documented in this encounter Results * MRI Cervical Spine W WO Contrast (03/02/2023 3:43 PM CDT) Anatomical Region Laterality Modality Spine N/A Magnetic Resonan ce 03/02/2023 4:19 PM CDT Narrative 03/02/2023 4:41 PM CDT EXAM DESCRIPTION: ?? MRI CERVICAL SPINE W WO CONTRAST; MRI BRAIN W WO CONTRAST REASON FOR STUDY: ?? Demyelinating disease with spinal cord symptoms, rule out demyelinating disease ?? Symptoms for 2 years. It is intermittent, but daily. She has tingling and numbness of hands. It affected both hands and all fingers equally. She also had pain or tingling and numbness of forearm and arm, but less severe than hands. She has tingling and ?? numbness, as well as stabbing pain of lower extremities. Feet is worse than legs or thigh. They were daily, but intermittent. It also affected abdomen region. She also joint pain knees, hips, sometimes ankles. TECHNIQUE: Multiplanar imaging includes noncontrast T1, T2, FLAIR, diffusion with ADC map and post contrast T1 sequences. Additional sequence(s) sensitive to blood products. ??Images stored on PACS. Sagittal and Axial imaging includes T1, T2, STIR and gradient echo sequences. ?? Postcontrast T1 sequences. CONTRAST TYPE/DOSE: ?? 14mL of GADOTERATE MEGLUMINE 0.5 MMOL/ML INTRAVENOUS SOLUTION (SO) ??injected via ?? intravenous COMPARISON: ?? None available FINDINGS: BRAIN: CEREBRUM: ?? No hemorrhage, edema, or mass effect. ??No abnormal enhancement. WHITE MATTER: ?? Normal appearing white matter. POSTERIOR FOSSA: ?? Brainstem and cerebellum appear unremarkable. ??No abnormal enhancement. DIFFUSION IMAGING: ?? No recent infarction. EXTRAAXIAL SPACES: ?? No hemorrhage. ??No mass or abnormal enhancement. BRAIN VOLUME: ?? Within normal limits for age. PITUITARY: ?? Unremarkable. VASCULATURE: ?? No flow disturbance identified. ORBITS: ?? No masses. Globes normal. PARANASAL SINUSES AND MASTOIDS: ?? Well-aerated with no fluid levels. No mucosa thickening. OTHER: ?? No other significant finding. CERVICAL: ALIGNMENT: ??Normal. VERTEBRAE: ??Vertebral body height well-maintained. Normal appearing marrow. DISCS: ?? Mild disc desiccation and minimal height loss at C5-C6 HARDWARE: ??None in the spine. CORD: ?? Normal in size and signal intensity. C1-C2: ?? No significant spinal stenosis. C2-C3: ?? No significant spinal stenosis or neural foraminal stenosis. C3-C4: ?? No significant spinal stenosis or neural foraminal stenosis. C4-C5: ?? No significant spinal stenosis or neural foraminal stenosis. C5-C6: Tiny left eccentric disc protrusion. ?? No significant spinal stenosis or neural foraminal stenosis. C6-C7: ?? No significant spinal stenosis or neural foraminal stenosis. C7-T1: ?? No significant spinal stenosis or neural foraminal stenosis. UPPER THORACIC: ??Incompletely imaged. No significant spinal stenosis or foraminal stenosis. OTHER: ?? No other significant finding. IMPRESSION: No acute intracranial findings. ??Specifically, the white matter appears normal. Normal cervical cord signal. Minimal degenerative disc disease at C5-6. THIS IS AN ELECTRONICALLY VERIFIED FINAL REPORT 03/02/2023 4:41 PM - Electronically signed by ??Orlando Lang M.D. MZ: MZ D: ??03/02/2023 4:41 PM T: ??03/02/2023 4:41 PM Report ID: [id number] Reading Location: ??[id number] Procedure Note Orlando Lang MD - 03/02/2023 EXAM DESCRIPTION: MRI CERVICAL SPINE W WO CONTRAST; MRI BRAIN W WOCONTRAST REASON FOR STUDY: Demyelinating disease with spinal cord symptoms, ruleout demyelinating disease Symptoms for 2 years. It is intermittent, but daily. She has tingling and numbness of hands. It affected both hands and all fingers equally. Shealso had pain or tingling and numbness of forearm and arm, but less severe than hands. She has tingling and numbness, as well as stabbing pain of lower extremities. Feet is worse than legs or thigh. They were daily, but intermittent. It also affected abdomen region. She also joint pain knees, hips, sometimes ankles. TECHNIQUE: Multiplanar imaging includes noncontrast T1, T2, FLAIR,diffusion with ADC map and post contrast T1 sequences. Additional sequence(s)sensitive to blood products. Images stored on PACS. Sagittal and Axial imaging includes T1, T2, STIR and gradient echosequences. Postcontrast T1 sequences. CONTRAST TYPE/DOSE: 14mL of GADOTERATE MEGLUMINE 0.5 MMOL/ML INTRAVENOUS SOLUTION (SO) injected via intravenous COMPARISON: None available FINDINGS: BRAIN: CEREBRUM: No hemorrhage, edema, or mass effect. No abnormalenhancement. WHITE MATTER: Normal appearing white matter. POSTERIOR FOSSA: Brainstem and cerebellum appear unremarkable. Noabnormal enhancement. DIFFUSION IMAGING: No recent infarction. EXTRAAXIAL SPACES: No hemorrhage. No mass or abnormal enhancement. BRAIN VOLUME: Within normal limits for age. PITUITARY: Unremarkable. VASCULATURE: No flow disturbance identified. ORBITS: No masses. Globes normal. PARANASAL SINUSES AND MASTOIDS: Well-aerated with no fluid levels. [place] thickening. OTHER: No other significant finding. CERVICAL: ALIGNMENT: Normal. VERTEBRAE: Vertebral body height well-maintained. Normal appearingmarrow. DISCS: Mild disc desiccation and minimal height loss at C5-C6 HARDWARE: None in the spine. CORD: Normal in size and signal intensity. C1-C2: No significant spinal stenosis. C2-C3: No significant spinal stenosis or neural foraminal stenosis. C3-C4: No significant spinal stenosis or neural foraminal stenosis. C4-C5: No significant spinal stenosis or neural foraminal stenosis. C5-C6: Tiny left eccentric disc protrusion. No significant spinalstenosis or neural foraminal stenosis. C6-C7: No significant spinal stenosis or neural foraminal stenosis. C7-T1: No significant spinal stenosis or neural foraminal stenosis. UPPER THORACIC: Incompletely imaged. No significant spinal stenosis or foraminal stenosis. OTHER: No other significant finding. IMPRESSION: No acute intracranial findings. Specifically, the white matter appears normal. Normal cervical cord signal. Minimal degenerative disc disease at C5-6. THIS IS AN ELECTRONICALLY VERIFIED FINAL REPORT 03/02/2023 4:41 PM - Electronically signed by Orlando Lang M.D. MZ: RIVAS Report ID: [id number] Reading Location: [place] [address] Tarun Neal MD IMG MRI PROCEDURES Iza l Result documented in this encounter Visit Diagnoses Diagnosis Multiple sclerosis (HCC) Multiple sclerosis documented in this encounter Administered Medications Inactive Administered Medications - up to 3 most recent administrations Medication Order MAR Action Action Date Dose Rate Site gadoterate meglumine injection 14 mL 14 mL, intravenous, Once in imaging, contrast, Starting on Wed03/02/23 at 1535, For 1 dose Contrast Given 03/02/2023 3:36 PM CDT 14 mL documented in this encounter Orders Medications Ordered That Fredy ht Not Have Been Administered Count Last Ordered Date First Ordered Date gadoterate meglumine injection 14 mL 1 10/2022 documented in this encounter Care Teams Hydraulic Strainer Operator Relationship Specialty Start Date End Date Sydney Richards DO PCP - General Family Medicine 10/15/22 Sydney Richards DO Family Medicine 10/15/22 documented as of this encounter
--- OUTSIDE RECORDS SUMMARY | 2024-06-27 01:26 | XMS_ITS | Referral Summary ---
Author Organization [facility] Address [address] [place] [address] Care Team Providers Care Riveting Machine Operator Tape Control Name Role Phone Sydney Richards DO Primary Care Provider + Sydney Richards DO Unavailable [phone] Allergies Active Allergy Reactions Criticality Noted Date Comments Lamotrigine Rash Medium 06/19/2020 Not SJS Penicillins Anaphylaxis High 05/02/2020 Medications gabapentin (NEURONTIN) 600 mg tablet Take 1 tablet (600 mg total) by mouth 3 (three) times a day 90 tablet 5 03/11/2023 Active Active Problems Problem Noted Date Diagnosed Date Paresthesia of skin 01/28/2023 Numbness and tingling of upp er and lower extremities of both sides 01/28/2023 Social History Tobacco Use Types Packs/Day Years Used Date Smoking Tobacco: Never Smokeless Tobacco: Never Tobacco Cessation:Counseling Given: Not Answered Personal Safety Answer Date Recorded Getting School Help Needed Not on file 07/18 Comments Unknown Sex and Gender Information Value Date Recorded Sex Assigned at Not on file 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 Gender Identity Not on file Sexual Orientation Not on file Last Filed Vital Signs Vital Sign Reading Time Taken Comments Blood Pressure 114/72 03/11/2023 9:24 AM CDT Pulse 78 03/11/2023 9:24 AM CDT Temperature 37.1 ??C (98.8 ??F) 08/10/2017 6:44 PM CS T Respiratory Rate 18 03/11/2023 9:24 AM CDT Oxygen Saturation 98% 03/11/2023 9:24 AM CDT Inhaled Oxygen Concentration - - Weight 72.6 kg (160 lb) 03/11/2023 9:24 AM CDT Height 172.7 cm (5' 7.99 ) 03/11/2023 9:24 AM CD T Body Mass Index 24.33 03/11/2023 9:24 AM CDT Plan of Treatment Not on file Insurance ANTHEM ACCESS ANTHEM ACCESS ANTHEM ACCESS Care Teams Riveting Machine Operator Tape Control Relationship Specialty Start Date End Date Sydney Richards DO PCP - General Family Medicine 10/15/22 Sydney Richards DO Family Medicine 10/15/22
--- OUTSIDE RECORDS SUMMARY | 2024-06-27 01:26 | XMS_ITS | Encounter Summary ---
Author Organization [facility] Address [address] [place] [address] Care Team Providers Care Orthopaedic General Name Role Phone Sydney Richards DO Primary Care Provider + Sydney Richards DO Unavailable [phone] Encounter Details Date Type Department Care Team (Late st Contact Info) Description 03/11/2023 9:30 AM CDT Office Visit [facility] [address] [place] [address] Tarun Neal MD [address] [facility] [address] [place] [address] Numbness and tingling of upper and lower extremities of both sides (Primary Dx) Social History Tobacco Use Types Packs/Day Years Used Date Smoking Tobacco: Never Smokeless Tobacco: Never Tobacco Cessation:Counseling Given: Not Answered Comments Unknown Sex and Gender Information Value Date Recorded Sex Assigned at Not on file 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 Gender Identity Not on file Sexual Orientation Not on file documented as of this encounter Last Filed Vital Signs Vital Sign Reading Time Taken Comments Blood Pressure 114/72 03/11/2023 9:24 AM CDT Pulse 78 03/11/2023 9:24 AM CDT Temperature - - Respiratory Rate 18 03/11/2023 9:24 AM CDT Oxygen Saturation 98% 03/11/2023 9:24 AM CDT Inhaled Oxygen Concentration - - Weight 72.6 kg (160 lb) 03/11/2023 9:24 AM CDT Height 172.7 cm (5' 7.99 ) 03/11/2023 9:24 AM CD T Body Mass Index 24.33 03/11/2023 9:24 AM CDT documented in this encounter Ordered Prescriptions Prescription Sig Dispense Quantity Refills Last Filled Start Date End Date gabapentin (NEURONTIN) 600 mg tablet Take 1 tablet (600 mg total) by mouth 3 (three) times a day 90 tablet 5 03/11/2023 documented in this encounter Progress Notes * Tarun Neal MD - 03/11/2023 9:30 AM CDT Subjective/Objective Patient ID: Lizzie Rosales is a 22 y.o. female. Chief Complaint I am seeing this 22 y.o. female in consultation requested by Dr. Sydney Richards DO for paresthesia. HPI For details, see 01/28/2023 note. Since last visit on 01/28/2023, no change with tingling and numbness of upper and lower extremities. She had MRI of brain and cervical spine with and without. They were unremarkable. No evidence of demyelinating disease. NCV/EMG is pending. TSH, folic acid, vitamin B12, SPEP were within normal limit. Past Medical History: Diagnosis Date Anemia Depression Headache, tension-type Migraine Allergies Allergen Reactions Penicillins Anaphylaxis Lamotrigine Rash Not SJS Current Outpatient Medications Medication Sig Dispense Refill gabapentin (NEURONTIN) 600 mg tablet Take 1 tablet (600 mg total) by mouth 3 (three) times a day 90tablet 5 No current facility-administered medications for this visit. has a current medication list which includes the following prescription(s): gabapentin. Family History Problem Relation Age of Onset Migraines Mother Seizures Mother Hypertension Father Social History Tobacco Use Smoking status: Never Smokeless tobacco: Never Substance and Sexual Activity Drug use: Never Sexual activity: None Alcohol Use: Not on file BP 114/72 (BP Location: Right arm, Patient Position: Sitting) Pulse 78 Resp 18 Ht 172.7 cm (5' 7.99 ) Wt 72.6 kg (160 lb) SpO2 98% BMI 24.33 kg/m?? Physical examination: Mental status: alert, speech fluent, comprehension intact, Follow command appropriately. Patient is fully oriented. Cranial nerve: OLIVIA, corneal reflex present. EOMI. VFF by confrontation method. Face symmetrical. Motor: bulk normal, tone normal, pronator drift negative. Strength 5/5. No abnormal movement. Coordination: FTN normal Reflexes: Biceps 2+ b/l, Knee reflex 2+ b/l, Achilles reflex 2+ b/l. Plantar reflexes downward bilaterally Sensation: LT Normal and symmetrical. Gait: normal. 1-2 beats clonus of feet. Assessment/Plan I am seeing this 22 y.o. female in consultation requested by Dr. Sydney Richards DO for paresthesia. MRI of the brain and cervical spine with/without were unremarkable. Need to rule out peripheral neuropathy. Diagnoses and all orders for this visit: Tingling and numbness of upper and lower extremities of both sides (HCC) (Primary) - EMG/NCV -; Future - start gabapentin 600 mg p.o. t.i.d. - follow-up after NCV/EMG as scheduled in April 2023 Review of investigations: 1. 03/02/2023 MRI of the brain with/without: No acute intracranial process. No evidence suggestive ofdemyelinating disease. I reviewed the image. 2. 03/02/2023 MRI of cervical spine with/without: No high-degree spinal stenosis or foraminal stenosis. No abnormal enhancement. I reviewed the image. 3. 01/28/2023 TSH 2.29 ( 0.30 - 4.20 ). Folic acid 5.1. Vitamin B12 490. SPEP normal. Return for follow up after NCV/EMG. documented in this encounter Plan of Treatment Not on file documented as of this encounter Visit Diagnoses Diagnosis Numbness and tingling of upper and lower extremities of both sides- Primary documented in this encounter Care Teams Orthopaedic General Relationship Specialty Start Date End Date Sydney Richards DO PCP - General Family Medicine 10/15/22 Sydney Richards DO Family Medicine 10/15/22 documented as of this encounter
--- OUTSIDE RECORDS SUMMARY | 2024-06-27 01:26 | XMS_ITS | Encounter Summary ---
Author Organization [facility] Address [address] [place] [address]. [place], [place] [address] [place] [address] Care Team Providers Care Associate Merchant Name Role Phone Sydney Richards DO Primary Care Provider [phone] Encounter Details Date Type Department Care Team (Latest Contact Info) Description 04/05/2024 Travel Social History Tobacco Use Types Packs/Day [...] on filedocumented in this encounter Care Teams Associate Merchant Relationship Specialty Start Date End Date Sydney Richards DO [address] [place] [address] PCP - General FAMILY PRACTICE 04/05/24 documented as of this encounter
--- OUTSIDE RECORDS SUMMARY | 2024-06-27 01:26 | XMS_ITS | Clinical Summary ---
Author Organization [facility] Address [address] [place] [address] Care Team Providers Care Experience Design Director Name Role Phone Sydney Richards DO Primary Care Provider + Sydney Richards DO Unavailable [phone] Allergies Active Allergy Reactions Criticality Noted Date [...] and lower extremities of both sides 01/28/2023 Medical History Medical History Date Comments Anemia Migraine Headache, tension-type Depression Family History Medical History Relation Name Comments Hypertension Father Migraines Mother Seizures Mother Relation Name Status Comments Father Mother Social History Tobacco Use Types Packs/Day Years Used Date Smoking Tobacco: Never Smokeless Tobacco: Never Tobacco Cessation:Counseling Given: Not Answered Personal Safety Answer Date Recorded Getting School Help Needed Not on file 07/18 Comments Unknown Sex and Gender Information Value Date Recorded Sex Assigned at Not on file 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 Gender Identity Not on file Sexual Orientation Not on file Obstetrics History Last Filed Vital Signs Vital Sign Reading [...] 03/11/2023 9:24 AM CDT Plan of Treatment Health Maintenance Due Date Last Done Comments Cervical Cancer Screening 2002 Depression Screening 2002 Hepatitis C Screening 2002 Regular Well Visit/Exam 18-64 2020 DTaP/Tdap/Td Vaccine (7 - Td or Tdap) 12/19/2023 12/18/2013, 01/11/2008, 06/02/2004, Additional history exists Covid-19 Vaccine (3 2023-2 5 season) 2024 10/17/2020, 09/23/2020 Influenza Vaccine (#1) 2024 0, 04/25/2019, 04/09/2018, Additional history exists Pneumococcal vaccine <65 Completed 004, 01/26/2003, 2002, Additional history exists Varicella Vaccines Completed 01/11/2008, 08/13/2003 HPV Vaccines Completed 10/23/2014, 04/28, 12/18/2013 Meningococcal Vaccine Completed 02/02/2020, 014 Meningococcal B Vaccine Completed 01/07/20, 03/08/2020, 02/02/2020 Insurance [facility] ACCESS ANTHEM ACCESS ANTHEM ACCESS Care Teams Experience Design Director Relationship Specialty Start Date End Date Sydney Richards DO PCP - General Family Medicine 10/15/22 Syndey Richards DO Family Medicine 10/15/22
--- OUTSIDE RECORDS SUMMARY | 2024-06-27 01:27 | XMS_ITS | Encounter Summary ---
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 Gender Identity Not on file Sexual Orientation Not on file documented as of this encounter Plan of Treatment Not on file documented as of this encounter Procedures Procedure Name Priority Date/Time Associated Diagnosis Comments CLINICAL PATHOLOGY REPORT Routine 01/28/2023 10:35 AM CDT THYROID FUNCTION CASCADE Routine 01/28/2023 10:35 AM CDT Multiple sclerosis (HCC) PROTEIN ELECTROPHORESIS, WITH REFLEX, SERUM Routine 01/28/2023 10:35 AM CDT Multiple sclerosis (HCC) FOLATE Routine 01/28/2023 10:35 AM CDT Multiple sclerosis (HCC) VITAMIN B12 Routine 01/28/2023 10:35 AM CDT Multiple sclerosis (HCC) documented in this encounter Results * Clinical pathology report (01/28/2023 10:35 AM CDT) Miscellaneous 01/28/2023 10: 35 AM CDT 02/01/2023 8:38 AM CDT Narrative 02/01/2023 2:55 PM CDT [facility] results best viewed via link to PDF [facility] Department of Pathology [address] [place] [address] Final Report Note to Patients: This report may contain a detailed description of human tissue sent by a health care provider to the laboratory for pathologic evaluation. The content of this report is essential for diagnosis and may provide important critical findings. This information may be unfamiliar to patients to review without a medical professional present. It is advised that the patient review this report in the presence of a health care provider who can answer questions and explain the details. Patient Name: ? LIZZIE ROSALESGaurav Address: ??[address] [place], [place] [address], [place] ??[address] Gender: ??F : ??2000 (Age: 22) Service: ?? Location: ?? Hospital #: ??[id number] Patient Type: [facility] Taken: ??01/28/2023 Received: ?? 02/01/2023 Accessioned: ??02/01/2023 Physician(s): ??Tarun Neal [facility] Specimen(s) Received A: Blood (serum) Serum Protein ElectrophoresisReported:02/01/2023 Interpretation: Serum Protein Electrophoresis: Normal serum protein electrophoresis pattern. Comment: Serum Protein Electrophoresis: There are no significant abnormalities of the protein fractions. See Epic and/or separate report for protein fraction table. Tanner Ca MD PhDReport Electronically Reviewed and Signed Out By ??Tanner Ca MD PhD ??02/01/2023 14:53:50 The performance characteristics of some immunohistochemical stains, fluorescence in-situ hybridization tests and immunophenotyping by flow cytometry cited in this report (if any) were determined by the Surgical Pathology Department at [facility] as part of an ongoing director of quality improvement program and in compliance with federally mandated regulations drawn from the Clinical Laboratory Improvement Act of 1988 (CLIA '88). ??Some of these tests rely on the use of analyte specific reagents and are subject to specific labeling requirements by the US Food and Drug Administration. ??Such diagnostic tests may only be performed in a facility that is certified by the Department of Health and Human Services as a high complexity laboratory under CLIA '88. The FDA has determined that such clearance or approval is not necessary. ??This test is used for clinical purposes. ??It should not be regarded as investigational or for research. ??Nevertheless, federal rules concerning the medical use of analyte specific reagents require that the following disclaimer be attached to the report: This test was developed and its performance characteristics determined by the Surgical Pathology Department [facility]. ??It has not been cleared or approved by the U. S. Food and Drug Administration. REPORT IMAGES AND SCANNED DOCUMENTS, IF INCLUDED, ONLY VIEWABLE IN PDF VERSION OF REPORTe o Tarun Neal MD LAB PATHOLOGY ORDERABLE S Final Result * Vitamin B12 (01/28/2023 10:35 AM CDT) Vitamin B12 490 230 - 1,250 pg/mL [facility] (LULI) Blood 01/28/2023 10:3 5 AM CDT 01/28/2023 1:45 PM CDT Tarun Neal MD LAB BLOOD ORDERABLES Fi nal Result [facility]RNA Y[facility] (LULI) 1 [facility] [place] [address] * Folate (01/28/2023 10:35 AM CDT) Folic acid 5.1 >=5.0 ng/mL [facility] (LULI) Comment:Slightly Hemolyzed S pecimen. Results may be affected. Blood 01/28/2023 10:3 5 AM CDT 01/28/2023 1:45 PM CDT Tarun Neal MD LAB BLOOD ORDERABLES Fi nal Result [facility] ([facility]) 1 [facility] Department [place] [address] * Protein electrophoresis with reflex, serum (01/28/2023 10:35 AM CDT) Protein, sr 6.8 6.2 - 8.2 g/dL [facility] ([facility]) Comment:Testing performed by : [address] [address] Albumin 4.0 3.2 - 5.0 g/dL [facility] ([facility]) Comment:Testing performed by : [address] [address] Alpha-1 globulin 0.3 0.2 - 0.4 g/dL [facility] ([facility]) Comment:Testing performed by : [address] [address] Alpha-2 globulin 0.7 0.5 - 1.0 g/dL [facility] ([facility]) Comment:Testing performed by : [address] [address] Beta-1 globulin 0.4 0.3 - 0.6 g/dL [facility] ([facility]) Comment:Testing performed by : [address] [address] Beta-2 globulin 0.4 0.2 - 0.6 g/dL [facility] ([facility]) Comment:Testing performed by : [address] [address] Gamma globulin 1.0 0.5 - 1.7 g/dL [facility] ([facility]) Comment:Testing performed by : [address] [address] SPEP interp See Cl Path Rpt [facility] ([facility]) Comment:Testing performed by : [address] [address] Blood 01/28/2023 10:3 5 AM CDT 01/28/2023 3:37 PM CDT Tarun Neal MD LAB BLOOD ORDERABLES Fi nal Result [facility] (LULI) 1 [facility] [place] [address] * TSH reflex to free T4 (01/28/2023 10:35 AM CDT) TSH 2.29 0.30 - 4.20 mcIUnit/mL [facility] ([facility]I) Blood 01/28/2023 10:3 5 AM CDT 01/28/2023 1:45 PM CDT us Tarun Neal MD LAB BLOOD ORDERABLES Fi nal Result Performing Organization Address City/[facility]/ZIP Co de Phone Number MYRNA YANG (LULI) 1 [facility] [email or web address] [address] documented in this encounter Visit Diagnoses Diagnosis Multiple sclerosis (HCC) Multiple sclerosis documented in this encounter Care Teams Canal Boat Operator Relationship Specialty Start Date End Date Sydney Richards DO PCP - General Family Medicine 10/15/22 Sydney Richards DO Family Medicine 10/15/22 documented as of this encounter
--- OUTSIDE RECORDS SUMMARY | 2024-06-27 01:27 | XMS_ITS | Encounter Summary ---
Author Organization [facility] Healthcare Address [address] [place] [address] Care Team Providers Care Founder Chairman And Chief Creative Officer Name Role Phone Sydney Richards DO Primary Care Provider + Sydney Richards DO Unavailable [phone] Reason for Referral * MRI/CAT/PET Scan (Routine) - Closed Specialty Diagnoses / Procedures Referred By Hal garcia Referred To Contact Radiology Diagnoses Multiple sclerosis (HCC) Procedures MRI Brain W WO Contrast Tarun Neal MD [address] [place] [address] [address] [place] [address] Phone: tel: fax: [address] [phone] Referral ID Status Reason Start Date Expiration Date Visits Re quested Visits Authorized [id number] Closed 01/28/2023 02/27/2024 1 1 Reason for Visit * MRI/CAT/PET Scan (Routine) - Closed Specialty Diagnoses / Procedures Referred By Controdney garcia Referred To Contact Radiology Diagnoses Multiple sclerosis (HCC) Procedures MRI Brain W WO Contrast Tarun Neal MD [address] [place] [address] [address] [place] [address] Phone: tel: fax: [address] [phone] Referral ID Status Reason Start Date Expiration Date Visits Re quested Visits Authorized [id number] Closed 01/28/2023 02/27/2024 1 1 Encounter Details Date Type Department Care Team (Latest Contact Info) Description 03/02/2023 2:30 PM CDT - 03/02/2023 11:59 PM CDT Hospital Encounter [facility] [address] [place] [address] Multiple sclerosis (HCC) Discharge Disposition: Discharge to home or self care Social History Tobacco Use Types Packs/Day Years Used Date Smoking Tobacco: Never Smokeless Tobacco: Never Comments Unknown Sex and Gender Information Value Date Recorded Sex Assigned at Not on file 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 Gender Identity Not on file Sexual Orientation Not on file documented as of this encounter Discharge Disposition Disposition Code Departure Means Destination Discharge to home or self care documented in this encounter Plan of Treatment Not on file documented as of this encounter Procedures Procedure Name Priority Date/Time Associated Diagnosis Comments MRI BRAIN W WO CONTRAST Schedule GABRIEL, Read Routine (Patient lives out of area) 03/02/2023 4:18 PM CDT Multiple sclerosis (HCC) documented in this encounter Results * MRI Brain W WO Contrast (03/02/2023 4:18 PM CDT) Anatomical Region Laterality Modality Head and Neck N/A Magnetic Resonan ce 03/02/2023 4:19 PM [...] Electronically signed by ??Orlando Lang M.D. MZ: RIVAS D: ??03/02/2023 4:41 PM T: ??03/02/2023 4:41 PM Report ID: [id number] Reading Location: ??[id number] Procedure Note Orlando Lang MD - 03/02/2023 [...] Orlando Lang M.D. MZ: RIVAS Report ID: [id number] Reading Location: [place] [address] Tarun Neal MD IMG MRI PROCEDURES Iza l Result documented in this encounter Visit Diagnoses Diagnosis Multiple sclerosis (HCC) Multiple sclerosis documented in this encounter Care Teams Founder Chairman And Chief Creative Officer Relationship Specialty Start Date End Date Sydney Richards DO PCP - General Family Medicine 10/15/22 Sydney Richards DO Family Medicine 10/15/22 documented as of this encounter
--- OUTSIDE RECORDS SUMMARY | 2024-06-27 01:27 | XMS_ITS | Encounter Summary ---
Author Organization [facility] Address [address] [facility] [facility] [address] [place] [address] Care Team Providers Care Integrity Analyst Name Role Phone Sydney Richards DO Primary Care Provider + Sydney Richards DO Unavailable [phone] Reason for Referral * MRI/CAT/PET Scan (Routine) - Closed Specialty Diagnoses / Procedures Referred By Contac t Referred To Contact Radiology Diagnoses Multiple sclerosis (HCC) Procedures MRI Cervical Spine W WO Contrast Tarun Neal MD [address] [place] [address] [address] [facility] [place] [address] Phone: tel: fax: [address] [phone] Referral ID Status Reason Start Date Expiration Date Visits Re quested Visits Authorized [id number] Closed 01/28/2023 02/27/2024 1 1 * MRI/CAT/PET Scan (Routine) - Closed Specialty Diagnoses / Procedures Referred By Contac t Referred To Contact Radiology Diagnoses Multiple sclerosis (HCC) Procedures MRI Brain W WO Contrast Tarun Neal MD [address] [place] [address] [address] [facility] [place] [place] [address] Phone: tel: fax: [facility] [address] [place] [address] Referral ID Status Reason Start Date Expiration Date Visits Re quested Visits Authorized [id number] Closed 01/28/2023 02/27/2024 1 1 Reason for Visit * Consultation (Routine) - Closed Specialty Diagnoses / Procedures Referred By Controdney t Referred To Contact Neurology Diagnoses Paresthesia of skin Sydney Richards DO Phone: tel: fax: Tarun Neal MD [address] [place] [address] [address] [place] [address] Phone: tel: fax: Referral ID Status Reason Start Date Expiration Date V isits Requested Visits Authorized [id number] Closed Specialty Services Required 10/15/2022 11/14/2023 1 1 Encounter Details Date Type Department Care Team (Late st Contact Info) Description 01/28/2023 9:00 AM CDT Office Visit [facility] [address] [facility] [address] [place] [id number] Tarun Neal MD [address] [place] [address] [address] [place] [address] Multiple sclerosis (HCC) (Primary Dx); Paresthesia of skin Social History Tobacco Use Types Packs/Day Years Used Date Smoking Tobacco: Never Smokeless Tobacco: Never Tobacco Cessation:Counseling Given: Not Answered Comments Unknown Sex and Gender Information Value Date Recorded Sex Assigned at Not on file 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 Gender Identity Not on file Sexual Orientation Not on file documented as of this encounter Last Filed Vital Signs Vital Sign Reading Time Taken Comments Blood Pressure 118/74 01/28/2023 9:06 AM CDT Pulse 98 01/28/2023 9:06 AM CDT Temperature - - Respiratory Rate - - Oxygen Saturation 96% 01/28/2023 9:06 AM CDT Inhaled Oxygen Concentration - - Weight 70.8 kg (156 lb) 01/28/2023 9:06 AM CDT Height 172.7 cm (5' 7.99 ) 01/28/2023 9:06 AM CD T Body Mass Index 23.73 01/28/2023 9:06 AM CDT documented in this encounter Progress Notes * Tarun Neal MD - 01/28/2023 9:00 AM CDT Subjective/Objective Patient ID: Lizzie Rosales is a 22 y.o. female. Chief Complaint I am seeing this 22 y.o. female in consultation requested by Dr. Sydney Richards DO for paresthesia. HPI This has been going on for about 2 years. It is intermittent, but daily. [...] also joint pain knees, hips, sometimes ankles. No DM or similarhistory in the family. Denies significant stress. Past Medical History: Diagnosis Date Anemia Depression Headache, tension-type Migraine Allergies Allergen Reactions Penicillins Anaphylaxis Lamotrigine Rash Not SJS No current outpatient medications on file. No current facility-administered medications for this visit. currently has no medications in their medication list. Family History Problem Relation Age of Onset Migraines Mother Seizures Mother Hypertension Father Social History Tobacco Use Smoking status: Never Smokeless tobacco: Never Substance and Sexual Activity Drug use: Never Sexual activity: None Alcohol Use: Not on file BP 118/74 (BP Location: Right arm, Patient Position: Sitting) Pulse 98 Ht 172.7 cm (5' 7.99 ) Wt 70.8 kg (156 lb) SpO2 96% BMI 23.73 kg/m?? Physical examination: Mental status: alert, speech [...] by Dr. Sydney Richards DO for paresthesia. Need to rule out demyelinating disease and polyneuropathy. Diagnoses and all orders for this visit: Multiple sclerosis (HCC) (Primary) - MRI Brain W WO Contrast; Future - MRI Cervical Spine W WO Contrast; Future - EMG/NCV -; Future - Vitamin B12; Future - Folate; Future - TSH reflex to free T4; Future - Protein electrophoresis with reflex, serum; Future Return in about 1 month (around 02/28/2023). documented in this encounter Miscellaneous Notes * Addendum Note - Chriss Singh CLT - 01/28/2023 9:00 AM CDTAddended by: CHRISS SINGH on: 01/28/2023 10:35 AM Modules accepted: Orders documented in this encounter Plan of Treatment Not on file documented as of this encounter Results * MRI Brain W [...] PM T: ??03/02/2023 4:41 PM Report ID: [id number] Reading Location: ??[id number] Procedure Note Orlando Lang MD - 03/02/2023 [...] Orlando Lang M.D. MZ: RIVAS Report ID: [id number] Reading Location: [place] [address] Tarun Neal MD IM MRI PROCEDURES Iza l Result * MRI Cervical Spine W WO Contrast [...] PM T: ??03/02/2023 4:41 PM Report ID: [id number] Reading Location: ??[id number] Procedure Note Orlando Lang MD - 03/02/2023 [...] Orlando Lang M.D. MZ: RIVAS Report ID: [id number] Reading Location: [place] [address] us Tarun Neal MD IMG MRI PROCEDURES Iza l Result * TSH reflex to free T4 (01/28/2023 10:35 AM CDT) Pathologist [facility] TSH 2.29 0.30 - 4.20 mcIUnit/mL [facility] H[facility]) Blood 01/28/2023 10:3 5 AM CDT 01/28/2023 1:45 PM CDT us Tarun Neal MD LAB BLOOD ORDERABLES Fi nal Result MY[facility] YANG (LULI) 1 [facility] Department [place] [address] * Protein electrophoresis with reflex, serum (01/28/2023 10:35 AM CDT) Pathologist [facility] Protein, sr 6.8 6.2 - 8.2 g/dL [facility] ([facility]ULI) Comment:Testing performed by : [facility], [address] [place] [address], [address] Albumin 4.0 3.2 - 5.0 g/dL [facility] (LULI) Comment:Testing performed by : [facility], [address] [place] [address], [address] Alpha-1 globulin 0.3 0.2 - 0.4 g/dL [facility] (LULI) Comment:Testing performed by : [facility], [address] [place] [address], [address] Alpha-2 globulin 0.7 0.5 - 1.0 g/dL [facility] ([facility]) Comment:Testing performed by : [address], [address] Beta-1 globulin 0.4 0.3 - 0.6 g/dL [facility] ([facility]) Comment:Testing performed by : [address], [address] Beta-2 globulin 0.4 0.2 - 0.6 g/dL [facility] ([facility]ULI) Comment:Testing performed by : [facility], [address] [place] [address], [address] Gamma globulin 1.0 0.5 - 1.7 g/dL [facility] ([facility]UL[facility]) Comment:Testing performed by : [address], [address] SPEP interp See Cl Path Rpt [facility] ([facility]) Comment:Testing performed by : [address], [address] Blood 01/28/2023 10:3 5 AM CDT 01/28/2023 3:37 PM CDT us Tarun Neal MD LAB BLOOD ORDERABLES Fi nal Result [facility] ([facility]) 1 [facility] Department [place] [address] * Folate (01/28/2023 10:35 AM CDT) Folic acid 5.1 >=5.0 ng/mL [facility] ([facility]) Comment:Slightly Hemolyzed S pecimen. Results may be affected. Blood 01/28/2023 10:3 5 AM CDT 01/28/2023 1:45 PM CDT Tarun Neal MD LAB BLOOD ORDERABLES Fi nal Result [facility] Y[facility] (LULI) 1 [facility] [place] [address] * Vitamin B12 (01/28/2023 10:35 AM CDT) Vitamin B12 490 [address] - 1,250 pg/mL [facility] ([facility]) Blood 01/28/2023 10:3 5 AM CDT 01/28/2023 1:45 PM CDT us Tarun Neal MD LAB BLOOD ORDERABLES Fi nal Result MY[facility] Y[facility] (LULI) 1 [facility] [place] [address] documented in this encounter Visit Diagnoses Diagnosis Multiple sclerosis (HCC)- Primary Multiple sclerosis Paresthesia of skin Multiple sclerosis (HCC) Multiple sclerosis Multiple sclerosis (HCC) Multiple sclerosis documented in this encounter Orders Outpatient Referral Count Last Ordered Date st Ordered Date AMB REFERRAL TO NEUROLOGY 1 01/28/2023 documented in this encounter Care Teams Integrity Analyst Relationship Specialty Start Date End Date Sydney Richards DO PCP - General Family Medicine 10/15/22 Sydney Richards DO Family Medicine 10/15/22 documented as of this encounter
--- OUTSIDE RECORDS SUMMARY | 2024-06-27 01:27 | XMS_ITS | Encounter Summary ---
Author Organization [facility] Healthcare Address [address] [place] [address] Care Team Providers Care Resin Coater Name Role Phone Unavailable Primary Care Provider Unavailabl e Encounter Details Date Type Department Care Team (Latest Contact Info) Description 08/10/2017 6:22 PM DATA COMPILER - 08/10/2017 10:47 PM DATA COMPILER Hospital Encounter [facility] Elikian, Gómez Jacky, DO [address] [facility] [place] [address] Syncope and collapse Social History Tobacco Use Types Packs/Day Years Used Date Smoking Tobacco: Never Assessed Comments Unknown Sex and Gender Information Value Date Recorded Sex Assigned at Not on file Legal Sex Female 9:59 AM DATA COMPILER Gender Identity Not on file Sexual Orientation Not on file documented as of this encounter Last Filed Vital Signs Vital Sign Reading Time Taken Comments Blood Pressure 112/67 08/10/2017 6:44 PM DATA COMPILER Pulse 91 08/10/2017 6:44 PM DATA COMPILER Temperature 37.1 ??C (98.8 ??F) 08/10/2017 6:44 PM CS T Respiratory Rate - - Oxygen Saturation 100% 08/10/2017 6:44 PM DATA COMPILER Inhaled Oxygen Concentration - - Weight 28.8 kg (63 lb 8 oz) 08/10/2017 6:[address] Height 172.7 cm (5' 8 ) 08/10/2017 6:44 PM DATA COMPILER Body Mass Index 9.66 08/10/2017 6:44 PM DATA COMPILER Body Mass Index Percentile 0.00% 08/10/2017 6:4 4 PM DATA COMPILER Growth Chart: CDC (Girls, 2- 20 Years) documented in this encounter Plan of Treatment Not on file documented as of this encounter Procedures Procedure Name Priority Date/Time Associated Diagnosis Comments CBC WITH AUTO DIFFERENTIAL Routine 08/10/2017 9:12 PM DATA COMPILER INFLUENZA A/B ANTIGENS, RAPID Routine 08/10/2017 9:12 PM DATA COMPILER COMPREHENSIVE METABOLIC PANEL Routine 08/10/2017 9:12 PM DATA COMPILER URINALYSIS Routine 08/10/2017 8:44 PM DATA COMPILER XR CHEST PA LATERAL 2 VIEWS Routine 08/10/2017 7:01 PM DATA COMPILER documented in this encounter Results * Influenza A/B antigens, rapid (08/10/2017 9:12 PM DATA COMPILER) Pathologist [facility] Influenza A Ag NEGATIVE NEGATIVE Influenza B Ag NEGATIVE NEGATIVE Comment: A NEGATIVE RESULT DOES NOT ELIMINATE THE POSSIBILITY OF AN ?? INFLUENZA A OR B INFECTION. ??INADEQUATE SPECIMEN COLLECTION ?? OR IMPROPER SAMPLE HANDLING/TRANSPORT, OR LOW LEVELS OF ?? VIRAL SHEDDING MAY YIELD A FALSE NEGATIVE RESULT. 08/10/2017 9:12 PM DATA COMPILER 08/10/2017 9:27 PM DATA COMPILER Narrative [facility] HISTORICAL RESULTS - 08/10/2017 9:46 PM DATA COMPILER Collected By mp us Lele Pettit LAB MICROBIOLOGY - GENERAL O RDERABLES Final Result [facility] HISTORICAL RESULTS * (ABNORMAL) Comprehensive metabolic panel (08/10/2017 9:12 PM DATA COMPILER) Pathologist [facility] Sodium 140 135 - 145 mmol/L Potassium 3.9 3.4 - 4.7 mmol/L Chloride 100 96 - 108 mmol/L Carbon Dioxide 28 22 - 32 mmol/L Anion Gap 12 7 - 16 Glucose 91 70 - 100 mg/dL BUN 7 5 - 18 mg/dL Creatinine 0.5 0.4 - 0.8 mg/dL Comment: NOTE: Estimated GFR (Cockroft-Gault) will NOT be calculated unless patient Height and Weight were entered. Also, Kidney Disease Stage (GFR) and Estimated GFR (Cockroft-Gault) will NOT be calculated if Creatinine result is <0.2. Kidney Disease Stage TNP mL/MIN Est GFR (Cockcroft-G) TNP ml/MIN Calcium 9.8 8.4 - 10.2 mg/dL Total Protein 7.5 6.4 - 8.3 g/dL Albumin 5.1(H) 3.2 - 4.5 g/dL Globulin 2.4 2.3 - 3.5 gm/dL Albumin/Globulin Ratio 2.1(H) 1.1 - 1.8 Total Bilirubin 3.4(H) 0.0 - 1.2 mg/dL AST 17 15 - 50 U/L ALT 7 0 - 33 U/L 08/10/2017 10:05 PM DATA COMPILER [facility] HISTORICAL RESULTS Alkaline Phosphatase 113 0 - 186 U/L 08/10/2017 10:05 PM DATA COMPILER [facility] HISTORICAL RESULTS 08/10/2017 9:12 PM DATA COMPILER 08/10/2017 9:27 PM DATA COMPILER [facility] LAB BLOOD ORDERABLES Final R esult [facility] HISTORICAL RESULTS * (ABNORMAL) CBC with auto differential (08/10/2017 9:12 PM DATA COMPILER) WBC 8.6 3.5 - 10.5 x10 3/ul 08/10/2017 9:31 PM [facility] HISTORICAL RESULTS Comment:New Reference Range in use 07/15/17. RBC 4.85(H) 3.76 - 4.80 x10 6/ul 08/10/2017 9:31 PM DATA COMPILER [facility] HISTORICAL RESULTS Hemoglobin 14.5 11.0 - 15.0 g/dL 08/10/2017 9:31 PM [facility] HISTORICAL RESULTS Hct 42.0 33.0 - 43.0 % 08/10/2017 9:31 PM [facility] HISTORICAL RESULTS MCV 86.6 80.0 - 97.0 fl 08/10/2017 9:31 PM [facility] HISTORICAL RESULTS MCH 29.9 27.0 - 31.2 pg 08/10/2017 9:31 PM [facility] HISTORICAL RESULTS MCHC 34.5 31.8 - 35.4 g/dl 08/10/2017 9:31 PM [facility] HISTORICAL RESULTS RDW 12.4 11.6 - 14.8 % 08/10/2017 9:31 PM [facility] HISTORICAL RESULTS Plt Count 276 150 - 450 X10 3/ul 08/10/2017 9:31 PM [facility] HISTORICAL RESULTS Comment:New Reference Range in use 07/15/17. MPV 9.3 7.4 - 10.4 fl 08/10/2017 9:31 PM [facility] HISTORICAL RESULTS Neut % 63.9 37.0 - 85.0 % 08/10/2017 9:31 PM [facility] HISTORICAL RESULTS Immature Gran % 0.2 0.0 - 3.0 % Lymph % 25.4 5.0 - 45.0 % Waller % 7.4 3.0 - 15.0 % Eos % 2.4 0.0 - 7.0 % Baso % 0.7 0.0 - 2.0 % Absolute Neuts (auto) 5.5 1.7 - 8.7 x10 3/ul Immature Gran # 0.0 0.0 - 0.3 x10 3/ul Absolute Lymphs (auto) 2.2 0.2 - 4.6 x10 3/ul Absolute Monos (auto) 0.6 0.1 - 1.5 x10 3/ul Absolute Eos (auto) 0.2 0.0 - 0.7 x10 3/ul Absolute Basos (auto) 0.1 0.0 - 0.2 x10 3/ul Nucleat RBC Rel Count 0.0 0 - 3 #/100WBC Absolute Nucleated RBC 0.00 x10 3/ul Absolute Neutrophils 5500 200 - 8000 /ul 08/10/2017 9:12 PM DATA COMPILER 08/10/2017 9:27 PM [facility] LAB BLOOD ORDERABLES Final R esult [facility] HISTORICAL RESULTS * (ABNORMAL) Urinalysis (08/10/2017 8:44 PM DATA COMPILER) Ur Collection Type CLEAN CATCH Urine Color YELLOW YELLOW Urine Clarity CLEAR CLEAR Urine Glucose (UA) NORMAL NORMAL mg/dL Urine Bilirubin NEGATIVE NEGATIVE mg/dl Urine Ketones NEGATIVE NEGATIVE mg/dL Ur Specific [place] 1.011 1.005 - 1.025 Urine Blood NEGATIVE NEGATIVE mg/dl Urine pH 7.0 5.0 - 8.0 Urine Protein NEGATIVE NEGATIVE mg/dL Urine Urobilinogen 2(H) NORMAL mg/dL Urine Nitrite NEGATIVE NEGATIVE Ur Leukocyte Esterase NEGATIVE NEGATIVE Carlota/ul Ur Microscopic Review Not Indicated 08/10/2017 8:44 PM DATA COMPILER 08/10/2017 8:53 PM [facility]le [facility] LAB URINE ORDERABLES Final R esult [facility] HISTORICAL RESULTS * XR Chest Pa Lateral 2 Views (08/10/2017 7:01 PM DATA COMPILER) Anatomical Region Laterality Modality Body, Chest N/A Radiographic Maribell ging 08/10/2017 7:01 PM DATA COMPILER Impressions 08/10/2017 7:11 PM DATA COMPILER ??No acute cardiopulmonary abnormality. THIS IS AN ELECTRONICALLY VERIFIED FINAL REPORT 08/10/2017 7:08 PM - Electronically signed by Harry Linares II DW: DW D: ??08/10/2017 7:08 PM T: ??08/10/2017 7:08 PM Report ID: [id number] Reading Location: ??[id number] [EOD] Narrative 08/10/2017 7:11 PM DATA COMPILER EXAM DESCRIPTION: ??Chest 2 Views COMPLETED DATE/TIME: ??08/10/2017 7:02 pm REASON FOR STUDY: ??syncopal episode with shortness of breath and tachycardia today COMPARISON: ??None available. TECHNIQUE: ??Frontal and lateral radiographic views of the chest acquired. FINDINGS: LUNGS AND PLEURA: No focal consolidation or pneumothorax. No pleural effusion. MEDIASTINUM: Normal mediastinal and hilar contour. HEART: Cardiac silhouette size normal. BONES: No acute findings. OTHER: No other significant finding. Procedure Note Provider, MD Laura - 11/12/2020 EXAM DESCRIPTION: Chest 2 Views COMPLETED DATE/TIME: 08/10/2017 7:02 pm REASON FOR STUDY: syncopal episode with shortness of breath andtachycardia today COMPARISON: None available. TECHNIQUE: Frontal and lateral radiographic views of the chestacquired. FINDINGS: LUNGS AND PLEURA: No focal consolidation or pneumothorax. No pleuraleffusion. MEDIASTINUM: Normal mediastinal and hilar contour. HEART: Cardiac silhouette size normal. BONES: No acute findings. OTHER: No other significant finding. IMPRESSION: No acute cardiopulmonary abnormality. THIS IS AN ELECTRONICALLY VERIFIED FINAL REPORT 08/10/2017 7:08 PM - Electronically signed by Harry Linares II DW: DW Report ID: [id number] Reading Location: [id number] [EOD] [facility] IMG XR PROCEDURES Final Resu lt documented in this encounter Visit Diagnoses Diagnosis Syncope and collapse documented in this encounter
--- OUTSIDE RECORDS SUMMARY | 2024-06-27 01:28 | XMS_ITS ---
Author Organization [facility] [employer] Address [address] [facility] [address] [place] [address] Care Team Providers Care Sizing Sprayer Name Role Phone Sydney GALEANO DO Primary Care Provider UnaMauro Zavaleta Unavailable [phone] Sandra Dyer [phone] Social History Sex Assigned At : Social History Observation Description Sex Assigned At Female Encounters Encounter Location Date Provider Diagnosis [facility] [employer] [facility] [address] [facility] [address] [place] [address] 05/11/2024 Sandra Dyer Plan Of Treatment No Information Progress Notes * ALEKSANDAR BRAUN LDOB: [birth year] (23 yo F)Acc No.[id number]:05/11/2024 Patient:?ALEKSANDAR BRAUN Provider:?Sandra Dyer :2000???Age:23 Y???Sex:Female D ate:05/11/2024 [id number] Pcp:Sydney GALEANO DO Data: * Chief Complaints: * ??? Assessment: Plan: * Treatment: * Billing Information: * Visit Code:? * Procedure Codes:? * Electronic signature of Paolo Dyer LCPC on 06/27/2024 at 01:27 AM [employer] Sign off status: Pending Signatures: No Ad Hoc Signature Added * Provider:Carlos Dyer Date:?2023 Generated for Viv raymond/Magaly/Litaitting on:?06/27/2024 01:27 AM [employer]
--- OUTSIDE RECORDS SUMMARY | 2024-06-27 01:28 | XMS_ITS ---
Author Organization [facility] Address [address] [place] [address] Care Team Providers Care Gelatin Plant Supervisor Name Role Phone Sydney GALEANO DO Primary Care Provider Mauro Fay Unavailable [phone] Sandra Dyer Unavailable [phone] REASON FOR VISIT Depression screening positive, New patient appointment, history of depression, schizotypal Social History Tobacco Use: Social History Observation Description Date Details (start date - stop date) Current Smoker 02/27/2024 - NA Sex Assigned At : Social History Observation Description Sex Assigned At Female Tobacco Control (Standard) Question Answer Notes Tobacco use: Current smoker When did you start smoking? 02/27/2024 How often do you smoke cigarettes? Every day How many cigarettes a day do you smoke? 5 or les s How soon after you wake up do you smoke your fir st cigarette? After 60 minutes Are you interested in quitting? Not ready to dory t AUDIT-C (Standard) Question Answer Notes Points 3 Interpretation Positive Did you have a drink contain ing alcohol in the past year? Yes How often did you have six o r more drinks on one occasion in the past year? Less than monthly (1 point) How many drinks did you have on a typical day when you were drinking in the past year? 1 or 2 drinks (0 point) How often did you have a dri nk containing alcohol in the past year? Monthly or less (1 point) Encounters Encounter Location Date Provider Diagnosis [facility] [employer] [facility], [facility] [address] [place] [address] 05/04/2024 Sandra Dyer PTSD (post-traumatic stress disorder) F43.10 and Schizoaffective disorder, bipolar type F25.0 Assessments Encounter Date Diagnosis (ICD Code) Assessment Notes Treatment Notes Treatment Clinical Notes Section Notes 05/04/2024 PTSD (post-traumatic stress disorder) (ICD-10 - F43.10) 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 Financial Concerns: yeah Did not elaborate though noted stress from being unemployed History: [employer]. 3 months of boot camp Legal History: Denied Family History of MH/INGE: schizophrenia, bipolar, substance use Physical Medical Conditions: Suspecting Ehler's Danlos Spiritual Beliefs: Noted being spiritual but did not go into details Suicidal Ideation/Self Harm: History of attempt via cutting. Denied hospitalization. Denied current SI. Homicidal Ideation: Denied Chief Complaint: I've been to a bunch of different therapists. Each time something has come up. Thought it was time to try it again. Anxiety: Lots of stressors about money. Denied panic attacks. Racing thoughts. Ruminating thoughts. Depression: Noted when in a depressive episode, will not want to get out of bed. Anger/Aggression: Denied Seble: Noted that she will have lots of energy. Will be talkative and then realize she doesn't know what the conversation has been about. Psychosis: Noted some delusions about sleep including not waking up if she goes to sleep or waking up in a different reality matrix style. Sleep: Noted not being able to sleep. Average of 4 hours of sleep in the past few nights. Nightmares, almost every night. Appetite: Not great. Noted feeling extremes of really or hungry or can't eat. I have weird relationship with food. Tying self-worth into how little she eats. Noted feeling better about this than in the past. Trauma: History of trauma, diagnosed with CPTSD. Substance Use (type, last use, amount, frequency, withdrawal symptoms): some alcohol, 1-2 or drinks a month. Super occasional marijuana use. Cigarettes. Gambling/Other Addictive Behaviors: Denied ADLs (Hygiene, Chores, Cooking, Shopping): Noted that cleaning is difficult both physically and mentally but will clean once a month. Noted that it causes a lot of stress. Interests/Skills/H obbies: art, used to fence, attending concerts. Goal(s) for Therapy: I angel just want to yap. 1. Bipolar Disorder - Monitor the patient's mood fluctuations and symptoms during therapy sessions. - Provide psychoeducation on bipolar disorder and coping strategies. - Encourage the patient to maintain a regular sleep schedule. 2. Schizotypal Personality Disorder - Utilize cognitive-behavior al therapy techniques to improve communication skills and challenge maladaptive thought patterns. - Provide psychoeducation on schizotypal personality disorder and its impact on interpersonal relationships. 3. Complex PTSD (C-PTSD) - Implement trauma-informed care, allowing the patient to lead discussions about their trauma experiences. - Utilize grounding techniques and coping strategies to manage symptoms. - Consider referral to a trauma specialist if needed. 4. Sleep Disturbances - Address sleep hygiene and relaxation techniques during therapy sessions. - Monitor sleep patterns. - Consider referral to a sleep specialist if no improvement is observed. 5. Appetite and Eating Concerns - Explore the patient's beliefs and thoughts about food and body image during therapy sessions. - Provide psychoeducation on healthy eating habits and coping strategies for managing disordered eating thoughts. 6. Unemployment and Financial Stress - Discuss potential resources and support systems for financial assistance. - Explore vocational rehabilitation services and job training programs, such as the upcoming phlebotomy program, to improve employment prospects. 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 - Provide support and resources for managing potential symptoms and impact on daily living tasks. 8. Art Therapy Interest - Integrate art therapy techniques into therapy sessions to facilitate self-expression, emotional processing, and coping skills development. Follow-up: - Schedule the first therapy session within the next 1-2 weeks, followed by monthly sessions to monitor progress and address ongoing concerns. 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 Financial Concerns: yeah Did not elaborate though noted stress from being unemployed History: [employer]. 3 months of boot camp Legal History: Denied Family History of MH/INGE: schizophrenia, bipolar, substance use Physical Medical Conditions: Suspecting Ehler's Radhas Spiritual Beliefs: Noted being spiritual but did not go into details Suicidal Ideation/Self Harm: History of attempt via cutting. Denied hospitalization. Denied current SI. Homicidal Ideation: Denied Chief Complaint: I've been to a bunch of different therapists. Each time something has come up. Thought it was time to try it again. Anxiety: Lots of stressors about money. Denied panic attacks. Racing thoughts. Ruminating thoughts. Depression: Noted when in a depressive episode, will not want to get out of bed. Anger/Aggression: Denied Seble: Noted that she will have lots of energy. Will be talkative and then realize she doesn't know what the conversation has been about. Psychosis: Noted some delusions about sleep including not waking up if she goes to sleep or waking up in a different reality matrix style. Sleep: Noted not being able to sleep. Average of 4 hours of sleep in the past few nights. Nightmares, almost every night. Appetite: Not great. Noted feeling extremes of really or hungry or can't eat. I have weird relationship with food. Tying self-worth into how little she eats. Noted feeling better about this than in the past. Trauma: History of trauma, diagnosed with CPTSD. Substance Use (type, last use, amount, frequency, withdrawal symptoms): some alcohol, 1-2 or drinks a month. Super occasional marijuana use. Cigarettes. Gambling/Other Addictive Behaviors: Denied ADLs (Hygiene, Chores, Cooking, Shopping): Noted that cleaning is difficult both physically and mentally but will clean once a month. Noted that it causes a lot of stress. Interests/Skills/H obbies: art, used to fence, attending concerts. Goal(s) for Therapy: I angel just want to yap. 1. Bipolar Disorder - Monitor the patient's mood fluctuations and symptoms during therapy sessions. - Provide psychoeducation on bipolar disorder and coping strategies. - Encourage the patient to maintain a regular sleep schedule. 2. Schizotypal Personality Disorder - Utilize cognitive-behavior al therapy techniques to improve communication skills and challenge maladaptive thought patterns. - Provide psychoeducation on schizotypal personality disorder and its impact on interpersonal relationships. 3. Complex PTSD (C-PTSD) - Implement trauma-informed care, allowing the patient to lead discussions about their trauma experiences. - Utilize grounding techniques and coping strategies to manage symptoms. - Consider referral to a trauma specialist if needed. 4. Sleep Disturbances - Address sleep hygiene and relaxation techniques during therapy sessions. - Monitor sleep patterns. - Consider referral to a sleep specialist if no improvement is observed. 5. Appetite and Eating Concerns - Explore the patient's beliefs and thoughts about food and body image during therapy sessions. - Provide psychoeducation on healthy eating habits and coping strategies for managing disordered eating thoughts. 6. Unemployment and Financial Stress - Discuss potential resources and support systems for financial assistance. - Explore vocational rehabilitation services and job training programs, such as the upcoming phlebotomy program, to improve employment prospects. 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 - Provide support and resources for managing potential symptoms and impact on daily living tasks. 8. Art Therapy Interest - Integrate art therapy techniques into therapy sessions to facilitate self-expression, emotional processing, and coping skills development. Follow-up: - Schedule the first therapy session within the next 1-2 weeks, followed by monthly sessions to monitor progress and address ongoing concerns. Plan Of Treatment Next Appt Details Follow Up: 1 Week, Reason: Progress Notes * ALEKSANDAR ROSALES LDOB: [birth year] (23 yo F)Acc No.[id number]:05/04/2024 Patient:?ORLANDO ROSALESLEINE Azalea Provider:Carlos Dyer :2000???Age:23 Y???Sex:Female D ate:05/04/2024 Address:[id number] Pcp:Sydney GALEANO DO Check In:10:52 AM [employer]ES [employer] REP Data: * Time Tracker: * Date Start Time End Time Duration User Type Captured By Mode Notes 05/04/2024 10:57 AM 11:27 AM 00:30:38 Therapist Paolo Dyer Timer * Chief Complaints: * ???1. Depression screening p ositive. 2. New patient appointment, history of depression, schizotypal. * HPI: ???Depression screening:?PHQ-9?Little interest or pleasure in doing things?Several days,?Feeling down, depressed, or hopeless?Several days,?Trouble falling or staying asleep, or sleeping too much?Nearly every day,?Feeling tired or having little energy Nearly every day,?Poor appetite or overeating?Nearly every day,?Feeling bad about yourself or that you are a failure, or have let yourself or your family down?Several days, Trouble concentrating on things, such as reading the newspaper or watching television?Nearly every day,?Moving or speaking so slowly that other people could have noticed; or the opposite, being so fidgety or restless that you have been moving around a lot more than usual?More than half the days,?Thoughts that you would be better off or of hurting yourself in some way Not at all,?Total Score?17,?Interpretation?Moderately Severe Depression.?Intervention?Depression Screening Findings?Positve,?Follow-Up for Depression?Mental health treatment assessment, Patient follow-up to return when and if necessary,?Suicide Risk Assessment Performed?05/04/2024 ,?Additional Evaluation for Depression?Psychiatric interview and evaluation,?Name of the standardized tool used for adult depression screening:?Patient Health Questionnaire (PHQ-9).?Past Psychiatric Hospitalizations:?Previous psychiatric hospitalizations?Previous Psychiatric Hospitalization?No.?Past History of Suicidal attempt?Have you ever attempted suicide in the past?Yes,?Method of suicide attempt?Cutting,.?[place]-Suicide Severity Rating Scale:?Suicide Risk (CSRS-screener)?in the past one month Have you wished you were or wished you could go to sleep and not wake up??No,?in the past one month Have you actually had any thoughts of killing yourself??No,?Have you ever done anything, started to do anything, or prepared to do anything to end your life??Yes.?Depression Screening:?JOAQUIM-7 (2018 Edition)?Feeling nervous, anxious, or on edge?Nearly every day,?Not being able to stop or control worrying?Nearly every day,?Worrying too much about different things?Nearly every day,?Trouble relaxing?Nearly every day,?Being so restless that it is hard to sit still?Nearly every day,?Becoming easily annoyed or irritable?Several days,?Feeling afraid as if something awful might happen More than half the days,?Total JOAQUIM-7 Score?18,?If you checked any problems, how difficult have they made it for you to do your work, take care of things at home, or get along with other people??Somewhat difficult,?Interpretation of Total?(15 and over) Severe.?History of Presenting Problem:?Client presents today for initial assessment and psychotherapy to treat depression and schizoaffective disorder. Client denies wanting to harm self or others at this time. Discussed continued treatment with client. She would like to meet again in one week. The patient, Ayanna, reports a history of multiple mental health diagnoses, including bipolar disorder, schizotypal personality disorder, and complex post-traumatic stress disorder (C-PTSD). They are currently experiencing a manic episode, characterized by racing thoughts, difficulty sleeping, and increased energy levels. Ayanna has been getting approximately four hours of sleep per night, accompanied by frequent nightmares. The patient also expresses delusional thoughts related to sleep, fearing potential or waking up in a different reality if they fall asleep. Ayanna describes a complicated relationship with food, linking their self-worth to the amount of food consumed. Their appetite has been fluctuating, alternating between periods of extreme hunger and inability to eat. The patient clarifies that this issue is not related to recent steroid use or antibiotics for pneumonia. The patient is currently facing unemployment and associated financial stressors. Ayanna has a brief history of service, having served in the [employer] for three months. They currently reside with their parents and rely on a support system primarily consisting of friends. While Ayanna has previously attended therapy, their treatment has been interrupted due to various circumstances. Ayanna expresses difficulty with cleaning tasks, attributing this to both physical limitations and lack of emotional motivation. The patient shows interest in art, fencing, and attending concerts, particularly favoring alternative music genres. In seeking therapy, Ayanna primarily desires a space to vent and receive feedback, while acknowledging a defensive reaction to authority figures and challenges with communication. The recent diagnosis of schizotypal personality disorder has provided some relief and understanding for the patient, but also raises questions about their sense of self and identity. * Behavioral History: ???Past psychiatric Hospitalization:No.?History of suicidal attempt?:Yes.?Type of previous suicidal attempt:Cutting.? * Medical History:?Past Psychi atric History: Anxiety Disorder,PTSD,Psychotic Episode,Bipolar Disorder, abdominal aortic aneurysm: No, atrial fibrillation: No, chronic fatigue syndrome: Yes, essential tremor: No, hyperlipidemia: No, hypertension: No, Parkinson's disease: No, restless leg syndrome: No, stroke: No, subdural hematoma: No, type 1 diabetes mellitus: No, type 2 diabetes mellitus: No, vitamin B12 deficiency: Yes, vitamin D deficiency: Yes, Past Psychiatric History: Anxiety Disorder,Panic Disorder,PTSD,Psychotic Episode,Schizoaffective Disorder,Major Depressive Episode,Bipolar Disorder, Past Psychiatric History: Anxiety Disorder,PTSD,Psychotic Episode,Schizoaffective Disorder,Major Depressive Episode,Bipolar Disorder. * Family History:?Father: None .?Maternal Aunt: None.?Maternal Uncle: None.?Paternal Uncle: None.?Paternal Aunt: Schizophrenia.?Mother: Bipolar Disorder.?Paternal Grandfather: None. Paternal Grandmother: Psychotic Episode,Major Depressive Episode,drug use,Alcohol Abuse.?Maternal Grandfather: drug use,Alcohol Abuse.?Maternal Grandmother: None.?Brother: Psychotic Episode,Major Depressive Episode,ADHD,drug use.?Sister: Adopted.?Son: None.?Daughter: None.? * Social History:?Tobacco Use:?Tobacco Control (Standard)?Tobacco use:?Current smoker,?When did you start smoking??02/27/2024,?How often do you smoke cigarettes??Every day,?How many cigarettes a day do you smoke??5 or less,?How soon after you wake up do you smoke your first cigarette??After 60 minutes,?Are you interested in quitting??Not ready to quit.?Migrated Social History:?Migrated Social History: Tobacco Years: Never smoker 07/30/2021. ???Drug/Alcohol:?Drugs?Have you used drugs other than those for medical reasons in the past 12 months??Yes,?Methamphetamine??No,?Crack??No,?LSD??No,?Ecstacy??No,?Prescription opiates??No,?Marijuana??Yes,?Ketamine??No,?PCP? No,?Is there a minor (18 years or younger) at risk at home??Yes,?Are you still using??Yes,?Do you want treatment??No.?AUDIT-C (Standard)?Did you have a drink containing alcohol in the past year??Yes,?How often did you have six or more drinks on one occasion in the past year??Less than monthly (1 point),?How many drinks did you have on a typical day when you were drinking in the past year??1 or 2 drinks (0 point),?How often did you have a drink containing alcohol in the past year??Monthly or less (1 point),?Points?3,?Interpretation?Positive.?Miscellaneous:?Occupation: Unemployed. Safety issues?Are there any firearms in the house??No.?Advance Care Planning?Are you your own decision-maker?Yes,?Do you have Power of Front End Wheel Loader Operator for Health or Medical??No.?Social History:?Household?Marital Status:?Single,?Number of Adults in household:?3,?Number of Children in Household:?2,?Level of Education:?Finished High School.? * Vitals:? * Examination: ???General Examination: ???- Mental Status Examination: - Patient is alert and oriented. - Exhibits racing thoughts and difficulty maintaining focus in conversation. - Reports manic symptoms, including increased energy and impulsivity. - Describes delusional beliefs related to sleep and fear of dying or waking in a different reality. - Experiences frequent nightmares and disturbed sleep pattern, averaging four hours of sleep per night. - Mood appears elevated; affect is congruent with reported manic state. - No suicidal or homicidal ideation reported. - Patient expresses difficulty with authority and gets defensive when given directives. - Physical Examination: - General: Patient recently recovered from pneumonia, no longer contagious. Presented with cane. - Neurological: Reports symptoms of delusion particularly related to sleep. - Gastrointestinal: Fluctuating appetite, sometimes feeling extremely hungry or unable to eat, not related to recent medication. - Musculoskeletal: History of fencing, now unable to continue due to physical limitations. ???Psychiatry: ?Appearance:?well-groomed.?Abnormal body movements:?none.?Affect / mood:?appropriate.?Aggression:?low.?Anger control:?good.?Attention:?normal in conversation.?Attitude:?cooperative.?Homicidal ideation:?none.?Suicidal ideation:?none.?Memory status:?no impairment noted.?Degree of awareness of surroundings:?within normal limits.?Delusions:?yes.?Hallucinations:?no.?Impulse control:?fair.?Insight:?good.?Intellectual functioning:?no impairment noted.?Judgement:?fair.?Orientation:?awake, alert and oriented x 3.?Perceptual disorders:?no perceptual disorder noted.?Psychomotor activity:?within normal range.?Speech / language:?normal rate, volume, and articulation (RVR).?Thought content:?appropriate.?Thought process:?intact.? Assessment: * Assessment: 1.?PTSD (post-traumatic stre ss disorder) - F43.10 (Primary)???2.?Schizoaffective disorder, bipolar type - F25.0??? 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 Financial Concerns: yeah Did not elaborate though noted stress from being unemployed History: [employer]. 3 months of boot camp Legal History: Denied Family History of MH/INGE: schizophrenia, bipolar, substance use Physical Medical Conditions: Suspecting Ehler's Danlos Spiritual Beliefs: Noted being spiritual but did not go into details Suicidal Ideation/Self Harm: History of attempt via cutting. Denied hospitalization. Denied current SI. Homicidal Ideation: Denied Chief Complaint: I've been to a bunch of different therapists. Each time something has come up. Thought it was time to try it again. Anxiety: Lots of stressors about money. Denied panic attacks. Racing thoughts. Ruminating thoughts. Depression: Noted when in a depressive episode, will not want to get out of bed. Anger/Aggression: Denied Seble: Noted that she will have lots of energy. Will be talkative and then realize she doesn't know what the conversation has been about. Psychosis: Noted some delusions about sleep including not waking up if she goes to sleep or waking up in a different reality matrix style. Sleep: Noted not being able to sleep. Average of 4 hours of sleep in the past few nights. Nightmares, almost every night. Appetite: Not great. Noted feeling extremes of really or hungry or can't eat. I have weird relationship with food. Tying self-worth into how little she eats. Noted feeling better about this than in the past. Trauma: History of trauma, diagnosed with CPTSD. Substance Use (type, last use, amount, frequency, withdrawal symptoms): some alcohol, 1-2 or drinks a month. Super occasional marijuana use. Cigarettes. Gambling/Other Addictive Behaviors: Denied ADLs (Hygiene, Chores, Cooking, Shopping): Noted that cleaning is difficult both physically and mentally but will clean once a month. Noted that it causes a lot of stress. ? Interests/Skills/Hobbies: art, used to fence, attending concerts. Goal(s) for Therapy: I angel just want to yap. 1. Bipolar Disorder - Monitor the patient's mood fluctuations and symptoms during therapy sessions. - Provide psychoeducation on bipolar disorder and coping strategies. - Encourage the patient to maintain a regular sleep schedule. 2. Schizotypal Personality Disorder - Utilize cognitive-behavioral therapy techniques to improve communication skills and challenge maladaptive thought patterns. - Provide psychoeducation on schizotypal personality disorder and its impact on interpersonal relationships. 3. Complex PTSD (C-PTSD) - Implement trauma-informed care, allowing the patient to lead discussions about their trauma experiences. - Utilize grounding techniques and coping strategies to manage symptoms. - Consider referral to a trauma specialist if needed. 4. Sleep Disturbances - Address sleep hygiene and relaxation techniques during therapy sessions. - Monitor sleep patterns. - Consider referral to a sleep specialist if no improvement is observed. 5. Appetite and Eating Concerns - Explore the patient's beliefs and thoughts about food and body image during therapy sessions. - Provide psychoeducation on healthy eating habits and coping strategies for managing disordered eating thoughts. 6. Unemployment and Financial Stress - Discuss potential resources and support systems for financial assistance. - Explore vocational rehabilitation services and job training programs, such as the upcoming phlebotomy program, to improve employment prospects. 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 - Provide support and resources for managing potential symptoms and impact on daily living tasks. 8. Art Therapy Interest - Integrate art therapy techniques into therapy sessions to facilitate self-expression, emotional processing, and coping skills development. Follow-up: - Schedule the first therapy session within the next 1-2 weeks, followed by monthly sessions to monitor progress and address ongoing concerns. Plan: * Behavioral Health Treatment Plan: ???Imported Date:05/04/2024 05:03 PM??Imported By:Sandra Dyer???Short Term Therapy ProgramStrengthsGood social supportSelf-awareness of weakness, barrier, and triggersProblem/Goal/Objective/InterventionGroup1: Personality Disorders 2eProblem 1:SchizotypalICDSchizoaffective disorder, bipolar typeBehavioral DefinitionShows odd or eccentric appearance and behavior.Has inappropriate or constricted affect.Tends to be suspicious of others, at times even paranoid.Exhibits odd, vague, unusually abstract, or unusually concrete thinking and speech.Has unusual perceptual experiences (e.g., believing that he/she can sense the presence of another person).Believes in magical phenomena (e.g., telepathy, clairvoyance, and extrasensory perception) beyond what is usual for own culture.GoalBring clarity to vague cognitions; reduce odd, magical thinking and feelings of depersonalization. Progress Start Date Target Date Assigned To Priority Statu s 0% 2024-05-04 2024-08-04 Sandra Dyer 0 Open Objective* Express a line of thought clearly and distinctly, tracing the connection between one thought and another. Progress Start Date Target Date Assigned To Status 0% 2024-05-04 2024-08-04 Sandra Dyer Intervention* Encourage the client to practice identifying and clarifying internal thought processes by describing an emotional experience; provide feedback regarding areas that are confusing or vague. Start Date Target Date Assigned To Status 2024-05-04 2024-08-04 Sandra Dyer * Treatment: * Procedure Codes:?96963 BEHAV ASSMT W/SCORE & DOCD/STAND INSTRUMENT, 36112 PSYCHIATRIC DIAGNOSTIC EVALUATION * Follow Up:?1 Week * Billing Information: * Visit Code:? * Procedure Codes:? 91007 BEHAV ASSMT W/SCORE & DOCD/STAND INSTRUMENT. 06258 PSYCHIATRIC DIAGNOSTIC EVALUATION. * S SUPPORT REP Sign off status: Completed Signatures: No Ad Hoc Signature Added true * Provider:?Sandra Dyer Date:?2023 Generated for Viv raymond/Magaly/Luzma on:?06/27/2024 01:27 AM SALES SUPPORT REP
--- OUTSIDE RECORDS SUMMARY | 2024-06-27 01:28 | XMS_ITS | Patient Health Record ---
Author Organization [facility] Address [address] [place] [address] Care Team Providers Care Lock Operator Name Role Phone Sydney GALEANO DO Primary Care Provider Mauro Fay Unavailable [phone] Migration, Provider Unavailable Unavailable Sandra Dyer Unavailable [phone] Clarke Spear Unavailable [phone] Allergies Allergen (clinical drug ingredient) Drug/Non Drug Allergy documented on EMR Reaction Allergy Type Onset Date Status Substance with penicillin structure and antibacterial mechanism of action (substance) Penicillins Unknown Drug Allergy Active Reason For Referral No Information Medications Medication SIG (Take, Route, Fr equency, Duration) Notes Start Date End Date Status Dicyclomine HCl 20 MG Oral for 5 Days Active Gabapentin 600 MG 1 tablet Oral three times a day for 30 days Active Propranolol HCl 10 MG 1 tablet Orally Three times a day for 30 days As needed for anxiety Active DULoxetine HCl 30 MG 1 capsule Oral Once a day for 30 days Active DULoxetine HCl 60 MG 1 capsule Oral Once a day for 30 days Active Famotidine 20 MG TAKE 1 TABLET BY CHUN TH DAILY Oral for 30 Days Active Social History Tobacco Use: Social History Observation [...] past year? Monthly or less (1 point) Problems Problem Type SNOMED Code ICD Code Onset Dates Problem Status W/U Status Risk Notes Problem 16553318 Schizoaffective disorder, bipolar type (F25.0) Active confirmed Problem 78583053 PTSD (post-traumatic stress disorder) (F43.10) Active confirmed Problem Current smoker (02564943) Current smoker (F17.200) Active confirmed Problem 42335410 Hypertension, unspecified type (401.9) Active confirmed Problem [id number] Personality disorder (F60.9) Active confirmed Vital Signs Heart Rate 115 /min 04/28/2024 Blood pressure diastolic 90 mm Hg 04/28/2024 Weight-kg 68.67 kg 04/28/2024 Blood pressure systolic 134 mm Hg 04/28/2024 Weight 151.4 lbs 04/28/2024 Encounters Encounter Location Date Provider Diagnosis [place], [facility] [address] [address] 05/11/2024 Sandra Dyer [place], [facility] [address] [address] 05/29/2024 Clarke Clubb [place], [facility] [address] [facility] [address] [place] [address] 03/08/2024 Clarke Clubb Schizoaffective disorder, bipolar type F25.0 and PTSD (post-traumatic stress disorder) F43.10 [place], [employer] [address] [facility] [address] [place] [address] 03/22/2024 Clarke Clubb Schizoaffective disorder, bipolar type F25.0 and PTSD (post-traumatic stress disorder) F43.10 [place], [facility] [address] [facility] [address] [place] [address] 04/05/2024 Clarke Clubb Schizoaffective disorder, bipolar type F25.0 ; PTSD (post-traumatic stress disorder) F43.10 ; Personality disorder F60.9 ; Current smoker F17.200 and Hypertension, unspecified type 401.[address] [facility] [employer] [address] [facility], [facility] [address] [place] [address] 04/28/2024 Clarke Clubb PTSD (post-traumatic stress disorder) F43.10 ; Personality disorder F60.9 ; Current smoker F17.200 and Hypertension, unspecified type 401.[address] [facility] [employer] [address] [facility], [facility] [address] [place] [address] 05/04/2024 Sandra Dyer PTSD (post-traumatic stress disorder) F43.10 and Schizoaffective disorder, bipolar type F25.[address] [facility] [employer] [facility] [address] [place] [address] 11/13/[address] [facility] [employer] [facility] [address] [place] [address] 11/14/[address] [facility] [employer] 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 Financial Concerns: yeah Did not elaborate [...] monitor progress and address ongoing concerns. 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 Financial Concerns: yeah Did not elaborate though noted stress from being unemployed History: [employer]. 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 04/28/2024 PTSD (post-traumatic stress disorder) (ICD-10 - F43.10) discussed medication adjustments for symptom control. discussed risk/benefit of medications. discussed treatment options. discussed how to take a HR and to hold propranolol medication if HR is below 60 BPM. discussed that aripiprazole may not completely eleminate auditory hallucinations but may reduce them. discussed that medication may take weeks to see full therapeutic effect. discussed when to seek emergency services. Assessment and plan reviewed with patient Call for problems with medication, side effects or need for dosage change. discussed the effects psychotropic medications have on fatuses and to discuss family planning appropriatly, discussed the need to use a form of control. pt has an apt with her PCP to discuss her lab results and known vitamin deficiancy. 1. Anxiety - Continue propranolol 10mg three times a day as needed for situational anxiety. - Encourage attendance at scheduled therapy appointment with therapist - Monitor anxiety levels during follow-up visits. - Patient rates current anxiety as 6/10. 2. Depression - Continue duloxetine 90mg daily. - Encourage attendance at scheduled therapy appointment with therapist - Monitor depression levels during follow-up visits. - Patient rates current depression as 10. 3. Insomnia - Address sleep hygiene and encourage consistent sleep schedule. - Monitor sleep patterns during follow-up visits. - Patient reports getting only 2 hours of sleep per night for weeks. 4. Hypertension - Monitor blood pressure during visits. - Encourage discussion of blood pressure concerns with primary care provider. - Patient reports normal blood pressure at PCP office. 5. Possible Personality Disorder (Schizotypal or Borderline) - Encourage reading I Hate You, Don't Leave Me for understanding of diagnosis and treatment. - Encourage research on schizotypal personality disorder. - Address concerns during therapy sessions - Consider traits of both schizotypal and borderline personality disorders. 6. Complex PTSD - Encourage attendance at scheduled therapy appointment with therapist. - Address trauma-related concerns during therapy sessions. 7. Medication Refill - Refill propranolol prescription as needed. 8. Follow-up Appointment - Schedule follow-up with PAMELA, LISA Spear on same day as therapy appointment with if possible. 03/08/2024 Schizoaffective disorder, bipolar type (ICD-10 - F25.0) 1. depression - Continue duloxetine 90 mg daily - Monitor response to medication and adjust as needed - Encourage her to start therapy 2. anxiety/ suspected fibromyalgia - Continue gabapentin 600 mg three times daily - Monitor response to medication and adjust as needed - Encourage her to start therapy 3. Suspected Schizoaffective Disorder - Initiate aripiprazole 2 mg daily at night - Monitor for side effects and response to medication - Follow up in 2 weeks to evaluate effectiveness - Discussed potential side effects, including akathisia, metabolic effects. 4. Nightmares - Discuss the possibility of prazosin with the patient - Encourage her to monitor blood pressure if prazosin is initiated - She reports nightmares most nights 5. Vitamin D and B12 deficiencies - Encourage her to start supplementation - Monitor levels with lab work 6. Interest in EMDR therapy - Provided referral to Tommy Stephenson in [place] for EMDR therapy - Phone number: [phone] 7. Labs and follow-up - Order baseline labs: vitamin B, vitamin D, CMP, CBC, lipid panel, TSH, A1C, ALT, and AST - Instruct her to get labs done as soon as possible - Schedule follow-up appointment to discuss lab results and symptom improvement 8. control and PMDD - Discuss control options with the patient - Monitor for PMDD symptoms and consider treatment if necessary - She expressed interest in discussing control - schedule an apt with HEALTHCARE BUSINESS ANALYST 9. Additional notes - Encouraged use of GoodRx for medication cost savings - Discussed neo[facility] tr for direct communication with provider - Informed her about walk-in clinic availability 03/08/2024 PTSD (post-traumatic stress disorder) (ICD-10 - F43.10) 1. depression - Continue duloxetine 90 mg daily - Monitor response to medication and adjust as needed - Encourage her to start therapy 2. anxiety/ suspected fibromyalgia - Continue gabapentin 600 mg three times daily - Monitor response to medication and adjust as needed - Encourage her to start therapy 3. Suspected Schizoaffective Disorder - Initiate aripiprazole 2 mg daily at night - Monitor for side effects and response to medication - Follow up in 2 weeks to evaluate effectiveness - Discussed potential side effects, including akathisia, metabolic effects. 4. Nightmares - Discuss the possibility of prazosin with the patient - Encourage her to monitor blood pressure if prazosin is initiated - She reports nightmares most nights 5. Vitamin D and B12 deficiencies - Encourage her to start supplementation - Monitor levels with lab work 6. Interest in EMDR therapy - Provided referral to Tommy Stephenson in [place] for EMDR therapy - Phone number: [phone] 7. Labs and follow-up - Order baseline labs: vitamin B, vitamin D, CMP, CBC, lipid panel, TSH, A1C, ALT, and AST - Instruct her to get labs done as soon as possible - Schedule follow-up appointment to discuss lab results and symptom improvement 8. control and PMDD - Discuss control options with the patient - Monitor for PMDD symptoms and consider treatment if necessary - She expressed interest in discussing control - schedule an apt with HEALTHCARE BUSINESS ANALYST 9. Additional notes - Encouraged use of GoodRx for medication cost savings - Discussed [facility] tr for direct communication with provider - Informed her about walk-in clinic availability 04/05/2024 Schizoaffective disorder, bipolar type (ICD-10 - F25.0) 1. Schizophrenia Spectrum Disorder - Improvement in auditory hallucinations, none in last week. - Visual hallucinations persist as shadow cats . - Plan: a. Continue aripiprazole 10mg, duloxetine 90mg, gabapentin 600mg TID. b. Monitor for hallucination/delu blayne changes. 2. Anxiety and Depression - Depression 11/04, anxiety 12/05. - Plan: a. Continue duloxetine 90mg. b. Continue propranolol 10mg TID PRN for panic/PTSD. c. Ensure propranolol prescription filled. 3. 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 - Plan: Continue monitoring and addressing in therapy. 4. Gastrointestinal Issues - Recently stopped famotidine 20mg after running out. - Plan: Assess need to renew famotidine based on GI symptoms. 5. Substance Use - Occasional marijuana and alcohol use. - Plan: Encourage minimizing substance use and discuss mental health impact. 6. Suicidal Ideation - Reports passive suicidal thoughts, no plan/intent. - Plan: Continue monitoring and addressing in therapy. 7. Possible Personality Disorder - Concerns about potentially having personality disorder. - Plan: Schedule session to assess for personality disorders (Clusters A, B, C). 8. Medication Refills - Plan: Refill propranolol 10mg TID PRN. 9. Follow-Up - Plan: Schedule follow-up to assess progress, discuss personality disorders, address concerns/symptom changes. 10. Delusions - Reports delusions of cults in walters, flesh monsters in drawers. - Delusions not constant, can be triggered by stress or appear randomly. 11. Possible Transient Psychotic Episode - Recent obsessive cleaning, discussing experience felt uncontrollable. - Plan: Further assess to differentiate psychosis vs. trauma-related symptoms. 04/05/2024 PTSD (post-traumatic stress disorder) (ICD-10 - F43.10) discussed medication adjustments for symptom control. discussed risk/benefit of medications. discussed treatment options. discussed how to take a HR and to hold propranolol medication if HR is below 60 BPM. discussed that aripiprazole may not completely eleminate auditory hallucinations but may reduce them. discussed that medication may take weeks to see full therapeutic effect. discussed when to seek emergency services. Assessment and plan reviewed with patient Call for problems with medication, side effects or need for dosage change. discussed the effects psychotropic medications have on fatuses and to discuss family planning appropriatly, discussed the need to use a form of control. pt has an apt with her PCP to discuss her lab results and known vitamin deficiancy. 1. Schizophrenia Spectrum Disorder - Improvement in auditory hallucinations, none in last week. - Visual hallucinations persist as shadow cats . - Plan: a. Continue aripiprazole 10mg, duloxetine 90mg, gabapentin 600mg TID. b. Monitor for hallucination/delu blayne changes. 2. Anxiety and Depression - Depression 11/04, anxiety 12/05. - Plan: a. Continue duloxetine 90mg. b. Continue propranolol 10mg TID PRN for panic/PTSD. c. Ensure propranolol prescription filled. 3. 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 - Plan: Continue monitoring and addressing in therapy. 4. Gastrointestinal Issues - Recently stopped famotidine 20mg after running out. - Plan: Assess need to renew famotidine based on GI symptoms. 5. Substance Use - Occasional marijuana and alcohol use. - Plan: Encourage minimizing substance use and discuss mental health impact. 6. Suicidal Ideation - Reports passive suicidal thoughts, no plan/intent. - Plan: Continue monitoring and addressing in therapy. 7. Possible Personality Disorder - Concerns about potentially having personality disorder. - Plan: Schedule session to assess for personality disorders (Clusters A, B, C). 8. Medication Refills - Plan: Refill propranolol 10mg TID PRN. 9. Follow-Up - Plan: Schedule follow-up to assess progress, discuss personality disorders, address concerns/symptom changes. 10. Delusions - Reports delusions of cults in walters, flesh monsters in drawers. - Delusions not constant, can be triggered by stress or appear randomly. 11. Possible Transient Psychotic Episode - Recent obsessive cleaning, discussing experience felt uncontrollable. - Plan: Further assess to differentiate psychosis vs. trauma-related symptoms. 04/28/2024 Personality disorder (ICD-10 - F60.9) 1. Anxiety - Continue propranolol 10mg three times a day as needed for situational anxiety. - Encourage attendance at scheduled therapy appointment with therapist - Monitor anxiety levels during follow-up visits. - Patient rates current anxiety as 6/10. 2. Depression - Continue duloxetine 90mg daily. - Encourage attendance at scheduled therapy appointment with therapist - Monitor depression levels during follow-up visits. - Patient rates current depression as 3/10. 3. Insomnia - Address sleep hygiene and encourage consistent sleep schedule. - Monitor sleep patterns during follow-up visits. - Patient reports getting only 2 hours of sleep per night for weeks. 4. Hypertension - Monitor blood pressure during visits. - Encourage discussion of blood pressure concerns with primary care provider. - Patient reports normal blood pressure at PCP office. 5. Possible Personality Disorder (Schizotypal or Borderline) - Encourage reading I Hate You, Don't Leave Me for understanding of diagnosis and treatment. - Encourage research on schizotypal personality disorder. - Address concerns during therapy sessions - Consider traits of both schizotypal and borderline personality disorders. 6. Complex PTSD - Encourage attendance at scheduled therapy appointment with therapist. - Address trauma-related concerns during therapy sessions. 7. Medication Refill - Refill propranolol prescription as needed. 8. Follow-up Appointment - Schedule follow-up with PAMELA, LISA Spear on same day as therapy appointment with if possible. 03/22/2024 Schizoaffective disorder, bipolar type (ICD-10 - F25.0) 1. Major Depressive Disorder (MDD) and Generalized Anxiety Disorder (JOAQUIM) - JOAQUIM score: 17 (previously 18) - PHQ score: 24 (previously 23) - Patient rates depression and anxiety 02/04 - Plan: a. Continue duloxetine 60mg and 30mg b. Refill duloxetine 60mg c. Start aripiprazole (Abilify) 10mg adjunct d. Discontinue aripiprazole 2mg e. Monitor for side effects and mood changes f. Address previous pharmacy issue with Abilify 2. Hallucinations and Suspected Schizoaffective Disorder - Patient reports occasional auditory hallucinations, new screaming experience - Plan: a. Increase aripiprazole (Abilify) to 10mg for antipsychotic effect b. Monitor for hallucination/delu blayne changes 3. Post-Traumatic Stress Disorder (PTSD) - Patient experiences frequent fight or flight responses - Plan: a. Start propranolol 10mg TID as needed for anxiety attacks b. Monitor effectiveness and side effects 4. Vitamin D and B12 Deficiency - Patient reports malabsorption issues and recent deficiency diagnosis - Plan: a. Encourage discussing vitamin injections with PCP b. Monitor vitamin levels and overall health 5. Abdominal Pain, Gallbladder, Bladder, and Periportal Edema Issues - Recent ER visit for abdominal pain - Diagnosed with collapsed gallbladder, bladder wall thickening, periportal edema - Has upcoming PCP appointment for further evaluation - Monitor abdominal pain and other symptoms 6. Social Anxiety - Plan: a. Start hydroxyzine as needed for anxiety b. Monitor effectiveness and side effects c. Patient reports constant anxiety and intrusive thoughts 7. Medication-Induced Memory Loss - Patient reports potential medication-related memory loss - Plan: Monitor cognitive function and adjust medications as needed Follow-Up: - Schedule follow-up to assess new medication effectiveness and symptom changes - Instruct patient to contact clinic for concerning side effects or worsening symptoms 03/22/2024 PTSD (post-traumatic stress disorder) (ICD-10 - F43.10) discussed medication adjustments for symptom control. discussed risk/benefit of medications. discussed treatment options. discussed how to take a HR and to hold propranolol medication if HR is below 60 BPM. discussed that aripiprazole may not completely eleminate auditory hallucinations but may reduce them. discussed that medication may take weeks to see full therapeutic effect. discussed when to seek emergency services. Assessment and plan reviewed with patient Call for problems with medication, side effects or need for dosage change. discussed the effects psychotropic medications have on fatuses and to discuss family planning appropriatly, discussed the need to use a form of control. pt has an apt with her PCP to discuss her lab results and known vitamin deficiancy. 1. Major Depressive Disorder (MDD) and Generalized Anxiety Disorder (JOAQUIM) - JOAQUIM score: 17 (previously 18) - PHQ score: 24 (previously 23) - Patient rates depression and anxiety 02/04 - Plan: a. Continue duloxetine 60mg and 30mg b. Refill duloxetine 60mg c. Start aripiprazole (Abilify) 10mg adjunct d. Discontinue aripiprazole 2mg e. Monitor for side effects and mood changes f. Address previous pharmacy issue with Abilify 2. Hallucinations and Suspected Schizoaffective Disorder - Patient reports occasional auditory hallucinations, new screaming experience - Plan: a. Increase aripiprazole (Abilify) to 10mg for antipsychotic effect b. Monitor for hallucination/delu blayne changes 3. Post-Traumatic Stress Disorder (PTSD) - Patient experiences frequent fight or flight responses - Plan: a. Start propranolol 10mg TID as needed for anxiety attacks b. Monitor effectiveness and side effects 4. Vitamin D and B12 Deficiency - Patient reports malabsorption issues and recent deficiency diagnosis - Plan: a. Encourage discussing vitamin injections with PCP b. Monitor vitamin levels and overall health 5. Abdominal Pain, Gallbladder, Bladder, and Periportal Edema Issues - Recent ER visit for abdominal pain - Diagnosed with collapsed gallbladder, bladder wall thickening, periportal edema - Has upcoming PCP appointment for further evaluation - Monitor abdominal pain and other symptoms 6. Social Anxiety - Plan: a. Start hydroxyzine as needed for anxiety b. Monitor effectiveness and side effects c. Patient reports constant anxiety and intrusive thoughts 7. Medication-Induced Memory Loss - Patient reports potential medication-related memory loss - Plan: Monitor cognitive function and adjust medications as needed Follow-Up: - Schedule follow-up to assess new medication effectiveness and symptom changes - Instruct patient to contact clinic for concerning side effects or worsening symptoms 04/05/2024 Personality disorder (ICD-10 - F60.9) 1. Schizophrenia Spectrum Disorder - Improvement in auditory hallucinations, none in last week. - Visual hallucinations persist as shadow cats . - Plan: a. Continue aripiprazole 10mg, duloxetine 90mg, gabapentin 600mg TID. b. Monitor for hallucination/delu blayne changes. 2. Anxiety and Depression - Depression 11/04, anxiety 12/05. - Plan: a. Continue duloxetine 90mg. b. Continue propranolol 10mg TID PRN for panic/PTSD. c. Ensure propranolol prescription filled. 3. 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 - Plan: Continue monitoring and addressing in therapy. 4. Gastrointestinal Issues - Recently stopped famotidine 20mg after running out. - Plan: Assess need to renew famotidine based on GI symptoms. 5. Substance Use - Occasional marijuana and alcohol use. - Plan: Encourage minimizing substance use and discuss mental health impact. 6. Suicidal Ideation - Reports passive suicidal thoughts, no plan/intent. - Plan: Continue monitoring and addressing in therapy. 7. Possible Personality Disorder - Concerns about potentially having personality disorder. - Plan: Schedule session to assess for personality disorders (Clusters A, B, C). 8. Medication Refills - Plan: Refill propranolol 10mg TID PRN. 9. Follow-Up - Plan: Schedule follow-up to assess progress, discuss personality disorders, address concerns/symptom changes. 10. Delusions - Reports delusions of cults in walters, flesh monsters in drawers. - Delusions not constant, can be triggered by stress or appear randomly. 11. Possible Transient Psychotic Episode - Recent obsessive cleaning, discussing experience felt uncontrollable. - Plan: Further assess to differentiate psychosis vs. trauma-related symptoms. 04/28/2024 Current smoker (ICD-10 - F17.200) -Quit - Yes [place] Tobacco Quitline Call a Smoking Quitline The [employer] Smoking Quitline, (9-639-05Q-QUIT) Smokefree.gov, which connects you with your State's Quitline, (2-979-BVEGUVP) Veterans Smoking Quitline, (3-287-MQXDNMN) 1. Anxiety - Continue propranolol 10mg three times a day as needed for situational anxiety. - Encourage attendance at scheduled therapy appointment with therapist - Monitor anxiety levels during follow-up visits. - Patient rates current anxiety as 6/10. 2. Depression - Continue duloxetine 90mg daily. - Encourage attendance at scheduled therapy appointment with therapist - Monitor depression levels during follow-up visits. - Patient rates current depression as 3/10. 3. Insomnia - Address sleep hygiene and encourage consistent sleep schedule. - Monitor sleep patterns during follow-up visits. - Patient reports getting only 2 hours of sleep per night for weeks. 4. Hypertension - Monitor blood pressure during visits. - Encourage discussion of blood pressure concerns with primary care provider. - Patient reports normal blood pressure at PCP office. 5. Possible Personality Disorder (Schizotypal or Borderline) - Encourage reading I Hate You, Don't Leave Me for understanding of diagnosis and treatment. - Encourage research on schizotypal personality disorder. - Address concerns during therapy sessions - Consider traits of both schizotypal and borderline personality disorders. 6. Complex PTSD - Encourage attendance at scheduled therapy appointment with therapist. - Address trauma-related concerns during therapy sessions. 7. Medication Refill - Refill propranolol prescription as needed. 8. Follow-up Appointment - Schedule follow-up with LISA SANTIAGO on same day as therapy appointment with if possible. 04/28/2024 Hypertension, unspecified type (ICD9-CM - 401.9) 1. Anxiety - Continue propranolol 10mg three times a day as needed for situational anxiety. - Encourage attendance at scheduled therapy appointment with therapist - Monitor anxiety levels during follow-up visits. - Patient rates current anxiety as 12/05. 2. Depression - Continue duloxetine 90mg daily. - Encourage attendance at scheduled therapy appointment with therapist - Monitor depression levels during follow-up visits. - Patient rates current depression as 09/04. 3. Insomnia - Address sleep hygiene and encourage consistent sleep schedule. - Monitor sleep patterns during follow-up visits. - Patient reports getting only 2 hours of sleep per night for weeks. 4. Hypertension - Monitor blood pressure during visits. - Encourage discussion of blood pressure concerns with primary care provider. - Patient reports normal blood pressure at PCP office. 5. Possible Personality Disorder (Schizotypal or Borderline) - Encourage reading I Hate You, Don't Leave Me for understanding of diagnosis and treatment. - Encourage research on schizotypal personality disorder. - Address concerns during therapy sessions - Consider traits of both schizotypal and borderline personality disorders. 6. Complex PTSD - Encourage attendance at scheduled therapy appointment with therapist. - Address trauma-related concerns during therapy sessions. 7. Medication Refill - Refill propranolol prescription as needed. 8. Follow-up Appointment - Schedule follow-up with LISA SANTIAGO on same day as therapy appointment with if possible. 04/05/2024 Current smoker (ICD-10 - F17.200) 1. Schizophrenia Spectrum Disorder - Improvement in auditory hallucinations, none in last week. - Visual hallucinations persist as shadow cats . - Plan: a. Continue aripiprazole 10mg, duloxetine 90mg, gabapentin 600mg TID. b. Monitor for hallucination/delu blayne changes. 2. Anxiety and Depression - Depression 11/04, anxiety 12/05. - Plan: a. Continue duloxetine 90mg. b. Continue propranolol 10mg TID PRN for panic/PTSD. c. Ensure propranolol prescription filled. 3. 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 - Plan: Continue monitoring and addressing in therapy. 4. Gastrointestinal Issues - Recently stopped famotidine 20mg after running out. - Plan: Assess need to renew famotidine based on GI symptoms. 5. Substance Use - Occasional marijuana and alcohol use. - Plan: Encourage minimizing substance use and discuss mental health impact. 6. Suicidal Ideation - Reports passive suicidal thoughts, no plan/intent. - Plan: Continue monitoring and addressing in therapy. 7. Possible Personality Disorder - Concerns about potentially having personality disorder. - Plan: Schedule session to assess for personality disorders (Clusters A, B, C). 8. Medication Refills - Plan: Refill propranolol 10mg TID PRN. 9. Follow-Up - Plan: Schedule follow-up to assess progress, discuss personality disorders, address concerns/symptom changes. 10. Delusions - Reports delusions of cults in walters, flesh monsters in drawers. - Delusions not constant, can be triggered by stress or appear randomly. 11. Possible Transient Psychotic Episode - Recent obsessive cleaning, discussing experience felt uncontrollable. - Plan: Further assess to differentiate psychosis vs. trauma-related symptoms. 04/05/2024 Hypertension, unspecified type (ICD9-CM - 401.9) 1. Schizophrenia Spectrum Disorder - Improvement in auditory hallucinations, none in last week. - Visual hallucinations persist as shadow cats . - Plan: a. Continue aripiprazole 10mg, duloxetine 90mg, gabapentin 600mg TID. b. Monitor for hallucination/delu blayne changes. 2. Anxiety and Depression - Depression 11/04, anxiety 12/05. - Plan: a. Continue duloxetine 90mg. b. Continue propranolol 10mg TID PRN for panic/PTSD. c. Ensure propranolol prescription filled. 3. 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 - Plan: Continue monitoring and addressing in therapy. 4. Gastrointestinal Issues - Recently stopped famotidine 20mg after running out. - Plan: Assess need to renew famotidine based on GI symptoms. 5. Substance Use - Occasional marijuana and alcohol use. - Plan: Encourage minimizing substance use and discuss mental health impact. 6. Suicidal Ideation - Reports passive suicidal thoughts, no plan/intent. - Plan: Continue monitoring and addressing in therapy. 7. Possible Personality Disorder - Concerns about potentially having personality disorder. - Plan: Schedule session to assess for personality disorders (Clusters A, B, C). 8. Medication Refills - Plan: Refill propranolol 10mg TID PRN. 9. Follow-Up - Plan: Schedule follow-up to assess progress, discuss personality disorders, address concerns/symptom changes. 10. Delusions - Reports delusions of cults in walters, flesh monsters in drawers. - Delusions not constant, can be triggered by stress or appear randomly. 11. Possible Transient Psychotic Episode - Recent obsessive cleaning, discussing experience felt uncontrollable. - Plan: Further assess to differentiate psychosis vs. trauma-related symptoms. 03/08/2024 Other Learning About Depression Screening material was printed Discussed the risks/benefits of this medication. Discussed medication side effects. Treatment options reviewed. Discussed that full therapeutic effects will take 4 to 6 weeks to start working. encouraged psychotherapy. Patient education materials were given to the patient. , Duloxetine Delayed Release Oral Capsule 30 mg (DULOXETINE - ORAL) material was printed, Aripiprazole Oral Tablet 2 mg (ARIPIPRAZOLE - ORAL) material was printed 1. depression - Continue duloxetine 90 mg daily - Monitor response to medication and adjust as needed - Encourage her to start therapy 2. anxiety/ suspected fibromyalgia - Continue gabapentin 600 mg three times daily - Monitor response to medication and adjust as needed - Encourage her to start therapy 3. Suspected Schizoaffective Disorder - Initiate aripiprazole 2 mg daily at night - Monitor for side effects and response to medication - Follow up in 2 weeks to evaluate effectiveness - Discussed potential side effects, including akathisia, metabolic effects. 4. Nightmares - Discuss the possibility of prazosin with the patient - Encourage her to monitor blood pressure if prazosin is initiated - She reports nightmares most nights 5. Vitamin D and B12 deficiencies - Encourage her to start supplementation - Monitor levels with lab work 6. Interest in EMDR therapy - Provided referral to [facility] in [place] for EMDR therapy - Phone number: [phone] 7. Labs and follow-up - Order baseline labs: vitamin B, vitamin D, CMP, CBC, lipid panel, TSH, A1C, ALT, and AST - Instruct her to get labs done as soon as possible - Schedule follow-up appointment to discuss lab results and symptom improvement 8. control and PMDD - Discuss control options with the patient - Monitor for PMDD symptoms and consider treatment if necessary - She expressed interest in discussing control - schedule an apt with HEALTHCARE BUSINESS ANALYST 9. Additional notes - Encouraged use of GoodRx for medication cost savings - Discussed neoSaej tr for direct communication with provider - Informed her about walk-in clinic availability Plan Of Treatment Pending Test Test Name Order Date Vitamin D, 1,25 Dihydroxy 03/08/2024 LIPID PANEL, STANDARD (7600) 03/08/2024 COMPREHENSIVE METABOLIC PANEL (01062) AST (822) 03/08/2024 ALT (823) 03/08/2024 CBC (H/H, RBC, INDICES, WBC, PLT) (1759) 03/08/2024 VITAMIN B12 (927) 03/08/2024 TSH W/REFLEX TO FT4 (29487) 03/08/2024 UDT 03/08/2024 Hemoglobin A1C 03/08/2024 Insurance Providers Payer Name Payer Address Payer Phone Subscriber Number Group Number Insured Name Patient Relationship to Insured Coverage Start Date Coverage End Date [facility] [address] [place] [address] [id number] [place] APARNANANDO Child - Insured has Financial Responsibility Medical (General) History Medical History History ICD Code Past Psychiatric History: An xiety Disorder,PTSD,Psychotic Episode,Bipolar Disorder abdominal aortic aneurysm: No atrial fibrillation: No chronic fatigue syndrome: Yes essential tremor: No hyperlipidemia: No hypertension: No Parkinson's disease: No restless leg syndrome: No stroke: No subdural hematoma: No type 1 diabetes mellitus: No type 2 diabetes mellitus: No vitamin B12 deficiency: Yes vitamin D deficiency: Yes Past Psychiatric History: An xiety Disorder,Panic Disorder,PTSD,Psychotic Episode,Schizoaffective Disorder,Major Depressive Episode,Bipolar Disorder Past Psychiatric History: An xiety Disorder,PTSD,Psychotic Episode,Schizoaffective Disorder,Major Depressive Episode,Bipolar Disorder undefined Surgical History Surgery Date(Month/Year) [facility] Hospitalization History Reason Date(Month/Year) allergic reaction to meningitis vaccine Dehydration
== END 2024-06-20 11:20 | disposition home or self-care (01) ==
PROVIDERS: Anesthesiology; PCP Family Medicine; Visit Provider Internal Medicine Gastroenterology
PROC: 0DJ08ZZ Inspection of Upper Intestinal Tract, Via Natural or Artificial Opening Endoscopic (ICD-10-PCS; CPT 43235; principal; 2024-06-20 13:00)
DX: K21.9 Gastro-esophageal reflux disease without esophagitis (principal); K62.5 Hemorrhage of anus and rectum; J45.909 Unspecified asthma, uncomplicated; G89.29 Other chronic pain; F21 Schizotypal disorder; F43.10 Post-traumatic stress disorder, unspecified; F41.1 Generalized anxiety disorder; F32.9 Major depressive disorder, single episode, unspecified; Z98.890 Other specified postprocedural states; Z87.891 Personal history of nicotine dependence; Z82.49 Family history of ischemic heart disease and other diseases of the circulatory system
CPT/HCPCS: 43239; 45378; 88305; J2704; J7120

== ENCOUNTER 2024-09-03 22:46 | Emergency (ER) | payer SELFPAY ==
--- OUTSIDE RECORDS SUMMARY | 2024-09-03 22:49 | XMS_ITS ---
Author Organization [facility] [employer] Address [address] [place] [address] Care Team Providers Care Landscaping Manager Name Role Phone Sydney GALEANO DO Primary Care Provider Mauro Fay Unavailable [phone] Clarke Spear Unavailable [phone] Allergies Allergen (clinical drug ingredient) Drug/Non Drug Allergy documented on EMR Reaction Allergy Type Onset Date Status Substance with penicillin structure and antibacterial mechanism of action (substance) Penicillins Unknown Drug Allergy Active REASON FOR VISIT 1 month f/u Medications Medication SIG (Take, Route, Fr equency, Duration) Notes Start Date End Date Status Dicyclomine HCl 20 MG Oral for 5 Days Active DULoxetine HCl 30 MG 1 capsule Oral Once a day for 30 days Active DULoxetine HCl 60 MG 1 capsule Oral Once a day for 30 days Active Famotidine 20 MG TAKE 1 TABLET BY CHUN TH DAILY Oral for 30 Days Active Gabapentin 600 MG 1 tablet Oral three times a day for 30 days Active Propranolol HCl 10 MG 1 tablet Orally Three times a day for 30 days As needed for anxiety Active Social History Tobacco Use: Social History [...] point) Encounters Encounter Location Date Provider Diagnosis [facility], [address] [address] 05/29/2024 Clarke Spear Plan Of Treatment No Information Progress Notes * ALEKSANDAR ROSALES LDOB: [birth year] (24 yo F)Acc No.[id number]:05/29/2024 Patient: ALEKSANDAR WILLIAMSON Provider: LISA Gupta :2000 A ge:23 Y S ex:Female Date:05/29/2024 Address:[id number] Pcp:Sydney GALEANO DO Subjective: * Chief Complaints: * 1 month f/u * HPI: C [place]-Suicide Severity Rating Scale: Suicide Risk (CSRS-screener) i n the past one month Have you wished you were or wished you could go to sleep and not wake up? Y es i n the past one month Have you actually had any thoughts of killing yourself? N o H ave you ever done anything, started to do anything, or prepared to do anything to end your life? Y es D epression screening: PHQ-9 L ittle interest or pleasure in doing things?Several days F eeling down, depressed, or hopeless S everal days T rouble falling or staying asleep, or sleeping too much S everal days F eeling tired or having little energy N early every day P oor appetite or overeating N early every day F eeling bad about yourself or that you are a failure, or have let yourself or your family down S everal days T rouble concentrating on things, such as reading the newspaper or watching television N early every day M oving or speaking so slowly that other people could have noticed; or the opposite, being so fidgety or restless that you have been moving around a lot more than usual S everal days T houghts that you would be better off or of hurting yourself in some way N ot at all T otal Score 1 4 I nterpretation M oderate Depression * Medical History: * Surgical History: * Hospitalization/Major Diagno stic Procedure: * Social History: T obacco Use: T obacco Control (Standard) T obacco use: C urrent smoker W hen did you start smoking? 0 02/27/2024 H ow often do you smoke cigarettes? E very day H ow many cigarettes a day do you smoke? 5 or less H ow soon after you wake up do you smoke your first cigarette? A fter 60 minutes A re you interested in quitting? N ot ready to quit M igrated Social History: M igrated Social History: Tobacco Years: Never smoker 07/30/2021. D rug/Alcohol: D rugs H ave you used drugs other than those for medical reasons in the past 12 months? Y es M ethamphetamine? N o C rack? N o L SD? N o E cstacy? N o P rescription opiates? N o M arijuana? Y es K etamine? N o P CP? N o I s there a minor (18 years or younger) at risk at home? Y es A re you still using? Y es D o you want treatment? N o AUDIT-C (Standard) D id you have a drink containing alcohol in the past year? Y es H ow often did you have six or more drinks on one occasion in the past year? L ess than monthly (1 point) H ow many drinks did you have on a typical day when you were drinking in the past year? 1 or 2 drinks (0 point) H ow often did you have a drink containing alcohol in the past year? M onthly or less (1 point) P oints 3 I nterpretation P ositive M iscellaneous: O ccupation: Unemployed. Safety issues A re there any firearms in the house? N o Advance Care Planning A re you your own decision-maker Y es D o you have Power of Site Inspector for Health or Medical? N o S ocial History: H ousehold M arital Status: S sunshine N umber of Adults in household: 3 N umber of Children in Household: 2 L evel of Education: F in[employer] * Medications: T akingDULoxetine HCl 60 MG Capsule Delayed Release Sprinkle 1 capsule Oral Once a day DULoxetine HCl 30 MG Capsule Delayed Release Particles 1 capsule Oral Once a day Propranolol HCl 10 MG Tablet 1 tablet Orally Three times a day As needed for anxietyGabapentin 600 MG Tablet 1 tablet Oral three times a day Dicyclomine HCl 20 MG Tablet Oral Famotidine 20 MG Tablet TAKE 1 TABLET BY MOUTH DAILY Oral Taking DULoxetine HCl 60 MG Capsule Delayed Release Sprinkle 1 capsule Oral Once a day Taking DULoxetine HCl 30 MG Capsule Delayed Release Particles 1 capsule Oral Once a day Taking Propranolol HCl 10 MG Tablet 1 tablet Orally Three times a day As needed for anxietyTaking Gabapentin 600 MG Tablet 1 tablet Oral three times a day Taking Dicyclomine HCl 20 MG Tablet Oral Taking Famotidine 20 MG Tablet TAKE 1 TABLET BY MOUTH DAILY Oral DiscontinuedARIPiprazole 10 MG Tablet TAKE 1 TABLET BY MOUTH DAILY Oral Discontinued ARIPiprazole 10 MG Tablet TAKE 1 TABLET BY MOUTH DAILY Oral * Allergies: P enicillins: Allergyno[Allergies Verified] Objective: * Vitals: Assessment: Plan: * Treatment: * Procedure Codes: * Billing Information: * Visit Code: * Procedure Codes: * US DANCER Sign off status: Completed true * Provider: LISA Gupta Date: 07/30/2023 Generated for Viv raymond/Magaly/Luzma on: 0 09/03/2024 10:49 PM CDT History and Physical Notes * HPI (History of Present Illness) Category Sub-Category Detail Notes Category Not es Depression screening PHQ-9 Little inte rest or pleasure in doing things: Several days Feeling down, depressed, or hopeless: Se veral days Trouble falling or staying asleep, or sl eeping too much: Several days Feeling tired or having little energy: N early every day Poor appetite or overeating: Nearly ever y day Feeling bad about yourself o r that you are a failure, or have let yourself or your family down: Several days Trouble concentrating on thi ngs, such as reading the newspaper or watching television: Nearly every day Moving or speaking so slowly that other people could have noticed; or the opposite, being so fidgety or restless that you have been moving around a lot more than usual: Several days Thoughts that you would be b kennedi off or of hurting yourself in some way: Not at all Total Score: 14 Interpretation: Moderate Depression [place]-Suicide Severity Rating Scale Suicide Risk (CSRS-screener) in the past one month Have you wished you were or wished you could go to sleep and not wake up?: Yes in the past one month Have y ou actually had any thoughts of killing yourself?: No Have you ever done anything, started to do anything, or prepared to do anything to end your life?: Yes
[2024-09-03 22:50] VITALS: BP 125/90; PULSE 75; RESP 15; TEMP 36.6; O2SAT 100
--- OUTSIDE RECORDS SUMMARY | 2024-09-03 22:50 | XMS_ITS | Clinical Summary ---
Author Organization [facility] Address [address] [place] [address] Care Team Providers Care Regional Sales Coordinator Name Role Phone Sydney Richards DO Primary Care Provider [phone] Allergies Active Allergy Reactions Criticality Noted Date [...] by mouth 3 (three) times daily. Active Social History Tobacco Use Types Packs/Day Years [...] Comments Blood Pressure 108/70 05/14/2024 7:57 PM DOUGH MIXER HELPER Pulse 74 05/14/2024 7:57 PM DOUGH MIXER HELPER Temperature 36.8 C (98.2 F) 05/14/2024 7:57 PM DOUGH MIXER HELPER Respiratory Rate 18 05/14/2024 7:57 PM DOUGH MIXER HELPER Oxygen Saturation 98% 05/14/2024 7:57 PM DOUGH MIXER HELPER Inhaled Oxygen Concentration - - Weight 68.5 kg (151 lb 0.2 oz) 05/14/2024 7:57 P M DOUGH MIXER HELPER Height 172.7 cm (5' 8 ) 05/14/2024 7:57 PM DOUGH MIXER HELPER Body Mass Index 22.96 05/14/2024 7:57 PM DOUGH MIXER HELPER Plan of Treatment Health Maintenance Due Date [...] 06/02/2004, Additional history exists COVID-19 Vaccine ( season) 2024 10/17/2020, 09/23/2020 Influenza Adult (#1) 2024 05/19/2020, 04/25/2019, 04/09/2018, Additional history exists Hepatitis B Vaccines Completed 05/17/2003, 2002, 2002 HPV Vaccines Completed 10/23/2014, 04/28, 12/18/2013 Meningococcal B Vaccine Completed 01/07/20, 03/08/2020, 02/02/2020 Meningococcal Vaccine Completed 02/02/2023 , 02/02/2020, 12/18/2013 RSV Immunizations Under 20 Months Aged Out No longer eligible based on patient's age to complete this topic Insurance [employer] Care Teams Regional Sales Coordinator Relationship Specialty Start Date End Date Sydney Richards DO [address] [place] [address] PCP - General FAMILY PRACTICE 04/05/24
--- OUTSIDE RECORDS SUMMARY | 2024-09-03 22:50 | XMS_ITS | Referral Summary ---
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 Gender Identity Not on file Sexual Orientation Not on file Last Filed Vital Signs Vital Sign Reading Time Taken Comments Blood Pressure 114/72 03/11/2023 9:24 AM CDT Pulse 78 03/11/2023 9:24 AM CDT Temperature 37.1 C (98.8 F) 08/10/2017 6:44 PM STEAM CLOTHES PRESS OPERATOR Respiratory Rate 18 03/11/2023 9:24 AM CDT Oxygen Saturation 98% 03/11/2023 9:24 AM CDT Inhaled Oxygen Concentration - - Weight 72.6 kg (160 lb) 03/11/2023 9:24 AM CDT Height 172.7 cm (5' 7.99 ) 03/11/2023 9:24 AM CD T Body Mass Index 24.33 03/11/2023 9:24 AM CDT Plan of Treatment Not on file Insurance ANTHEM ACCESS ANTHEM ACCESS ANTHEM ACCESS Care Teams Hemodialysis Patient Care Specialist Relationship Specialty Start Date End Date Sydney Richards DO PCP - General Family Medicine 10/15/22 Sydney Richards DO Family Medicine 10/15/22
--- OUTSIDE RECORDS SUMMARY | 2024-09-03 22:50 | XMS_ITS | Patient Health Record ---
Author Organization [facility] [employer] Address [address] [place] [address] Care Team Providers Care Diabetes Nurse Name Role Phone Sydney GALEANO DO Primary Care Provider Mauro Fay Unavailable [phone] Migration, Provider Unavailable Unavailable Sandra Dyer Unavailable [phone] Clarke Spear Unavailable [phone] Allergies Allergen (clinical drug ingredient) Drug/Non Drug [...] Problem Status W/U Status Risk Notes Problem 88326068 Schizoaffective disorder, bipolar type (F25.0) Active confirmed Problem 71792235 PTSD (post-traumatic stress disorder) (F43.10) Active confirmed Problem Current smoker (54717968) Current smoker (F17.200) Active confirmed Problem 48825149 Hypertension, unspecified type (401.9) Active confirmed Problem 69562858 Personality disorder (F60.9) Active confirmed Vital Signs Heart Rate 115 /min 04/28/2024 Blood pressure diastolic 90 mm Hg 04/28/2024 Weight-kg 68.67 kg 04/28/2024 Blood pressure systolic 134 mm Hg 04/28/2024 Weight 151.4 lbs 04/28/2024 Encounters Encounter Location Date Provider Diagnosis [facility] [address] [address] 03/08/2024 Clarke Clubb Schizoaffective disorder, bipolar type F25.0 and PTSD (post-traumatic stress disorder) F43.10 [employer] [address] [facility] [address] [place] [address] 03/22/2024 Clarke Clubb Schizoaffective disorder, bipolar type F25.0 and PTSD (post-traumatic stress disorder) F43.10 [employer] [address] [facility] [address] [place] [address] 04/05/2024 Clarke Clubb Schizoaffective disorder, bipolar type F25.0 ; PTSD (post-traumatic stress disorder) F43.10 ; Personality disorder F60.9 ; Current smoker F17.200 and Hypertension, unspecified type 401.9 [email or web address] [address] [place] [address] 04/28/2024 Clarke [facility] PTSD (post-traumatic stress disorder) F43.10 ; Personality disorder F60.9 ; Current smoker F17.200 and Hypertension, unspecified type 401.9 [facility] [employer] [facility], [employer] [address] [place] [address] 05/04/2024 Sandra Riversdainter PTSD (post-traumatic stress disorder) F43.10 and Schizoaffective disorder, bipolar type F25.0 [facility], [employer] [address] [place] [address] 05/11/[address] [facility], [employer] [address] [place] [address] 05/29/[address] [facility] [employer] [facility] [address] [place] [address] 11/13/[address] [facility] [employer] [facility] [address] [place] [address] 11/14/[address] 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 Financial Concerns: yeah Did not elaborate [...] fence, attending concerts. Goal(s) for Therapy: I nagel just want to yap. 1. Bipolar Disorder [...] to monitor progress and address ongoing concerns. 04/05/2024 Schizoaffective disorder, bipolar type (ICD-10 - [...] to differentiate psychosis vs. trauma-related symptoms. 03/08/2024 Schizoaffective disorder, bipolar type (ICD-10 - [...] - Provided referral to Tommy Stephenson in [place] for EMDR therapy - Phone number: [phone] 7. Labs and follow-up - Order baseline [...] discussing control - schedule an apt with TAXATION CONSULTANT 9. Additional notes - Encouraged use of [employer] for medication cost savings - Discussed [employer] tr for direct communication with provider - [...] - Provided referral to Tommy Stephenson in [place] for EMDR therapy - Phone number: [phone] 7. Labs and follow-up - Order baseline [...] discussing control - schedule an apt with TAXATION CONSULTANT 9. Additional notes - Encouraged use of GoodRx for medication cost savings - Discussed [employer] rt for direct communication with provider - Informed her about walk-in clinic availability 04/28/2024 PTSD (post-traumatic stress disorder) (ICD-10 - [...] for concerning side effects or worsening symptoms 04/28/2024 Personality disorder (ICD-10 - F60.9) 1. [...] visits. - Patient rates current depression as /10. 3. Insomnia - Address sleep hygiene and [...] as therapy appointment with if possible. 04/05/2024 Personality disorder (ICD-10 - F60.9) 1. Schizophrenia Spectrum Disorder - Improvement in auditory hallucinations, none in last week. - Visual hallucinations persist as shadow cats . - Plan: a. Continue aripiprazole 10mg, duloxetine 90mg, gabapentin 600mg TID. b. Monitor for hallucination/delu blayne changes. 2. Anxiety and Depression - Depression 10, anxiety 6/10. - Plan: a. Continue duloxetine 90mg. b. [...] assess to differentiate psychosis vs. trauma-related symptoms. 03/22/2024 PTSD (post-traumatic stress disorder) (ICD-10 - [...] for concerning side effects or worsening symptoms 04/28/2024 Current smoker (ICD-10 - F17.200) 6-Quit - Yes [place] Tobacco Quitline Call a Smoking Quitline The National [employer]'s Smoking Quitline, (7-555-38X-QUIT) Smokefree.gov, which connects you with your State's Quitline, (0-296-PVKGCTV) [facility] Smoking Quitline, (9-258-GWXRALY) 1. Anxiety - Continue propranolol 10mg three [...] - Provided referral to Tommy Stephenson in [place] for EMDR therapy - Phone number: [phone] 7. Labs and follow-up - Order baseline [...] discussing control - schedule an apt with TAXATION CONSULTANT 9. Additional notes - Encouraged use of GoodRx for medication cost savings - Discussed [employer] tr for direct communication with provider - Informed her about walk-in clinic availability Plan Of Treatment Pending Test Test Name Order Date Vitamin D, 1,25 Dihydroxy 03/08/2024 LIPID PANEL, STANDARD (7600) 03/08/2024 COMPREHENSIVE METABOLIC PANEL (51667) AST (822) 03/08/2024 ALT (823) 03/08/2024 CBC (H/H, RBC, INDICES, WBC, PLT) (1759) 03/08/2024 VITAMIN B12 (927) 03/08/2024 TSH W/REFLEX TO FT4 (58383) 03/08/2024 UDT 03/08/2024 Hemoglobin A1C 03/08/2024 Insurance Providers Payer Name Payer Address Payer Phone Subscriber Number Group Number Insured Name Patient Relationship to Insured Coverage Start Date Coverage End Date [facility] [address] [place] [address] [id number] DE APARNANANDO Child - Insured has Financial Responsibility [...]
--- OUTSIDE RECORDS SUMMARY | 2024-09-03 22:50 | XMS_ITS | Clinical Summary ---
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 Gender Identity Not on file Sexual Orientation Not on file Obstetrics History Last Filed Vital Signs Vital Sign Reading Time Taken Comments Blood Pressure 114/72 03/11/2023 9:24 AM CDT Pulse 78 03/11/2023 9:24 AM CDT Temperature 37.1 C (98.8 F) 08/10/2017 6:44 PM WELL LOGGING MUD 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 CAPTAIN Respiratory Rate 18 03/11/2023 9:24 AM CDT [...] 2024 0, 04/25/2019, 04/09/2018, Additional history exists Hepatitis B Screening Completed 05/17/2003 , 2002, 2002 Pneumococcal vaccine <65 Completed 004, 01/26/2003, 2002, Additional history exists Varicella Vaccines Completed 01/11/2008, 08/13/2003 HPV Vaccines Completed 10/23/2014, 04/28, 12/18/2013 Meningococcal B Vaccine Completed 01/07/20, 03/08/2020, 02/02/2020 Insurance [facility] ACCESS ANTHEM ACCESS ANTHEM ACCESS Care Teams Belting Cutter Relationship Specialty Start Date End Date Sydney Richards DO PCP - General Family Medicine 10/15/22 Sydney Richards DO Family Medicine 10/15/22
--- OUTSIDE RECORDS SUMMARY | 2024-09-03 23:01 | XMS_ITS ---
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 Name Role Phone Sydney GALEANO DO Primary Care Provider Mauro Fay Unavailable [phone] Sandra Dyer [phone] Social History Sex Assigned At : Social History Observation Description Sex Assigned At Female Encounters Encounter Location Date Provider Diagnosis [facility], [facility] [address] [facility] [address] [place] [address] 05/11/2024 Sandra Dyer Plan Of Treatment No Information Progress Notes * ALEKSANDAR ROSALES LDOB: [birth year] (24 yo F)Acc No.[id number]:05/11/2024 Patient: Linda ESCALONAALEKSANDAR Provider: Chtio Dyer :2000 A ge:23 Y S ex:Female Date:05/11/2024 [address] [facility] Pcp:Sydney GALEANO DO Data: * Chief Complaints: * Assessment: Plan: * Treatment: * Billing Information: * Visit Code: * Procedure Codes: * N SERVICES INSTRUCTOR Sign off status: Completed Signatures: No Ad Hoc Signature Added true * Provider: Chito Dyer Date: 07/11/2023 Generated for Viv raymond/Magaly/Litaitting on: 0 09/03/2024 10:49 PM CDT
[2024-09-03] MEDS: levETIRAcetam 500 MG TABLET 1000 MG PO (23:20)
[2024-09-03 23:21] VITALS: O2SAT 100
--- NOTE | 2024-09-03 23:24 | ED.SEIZURE ---
HPI - Seizure General Chief Complaint: Seizure Stated Complaint: Seizure tonight while at concert Time Seen by Provider: 09/03/24 22:55 History of Present Illness HPI Narrative: Patient presenting here with witnessed seizure tonight while at a concert, she feels like was brought on by the bright flashing lights, her boyfriend witnessed this and states that she initially seemed slightly confused and then started having seizure activity, lasted several minutes, after which she seemed confused and sleepy and was able to start talking after about a minute or so, she does have some headache and left shoulder pain, is now basically back to baseline. Does have history of seizures, was started on gabapentin by her doctor but no longer on this. Seizure History: Yes (Last one 6 months ago) Related Data Home Medications ?Medication ?Instructions ?Recorded ?Confirmed ?Last Taken ?Type gabapentin 600 mg tablet 600 mg PO TID 04/15/23 06/20/24 06/19/24 History propranolol 20 mg tablet 20 mg PO Q12H 06/01/24 06/20/24 06/19/24 History Allergies Allergy/AdvReac Type Severity Reaction Status Date / Time Penicillins Allergy Unknown Swelling Verified 09/03/24 23:21 of Lip/Tongue/Throat aripiprazole (From Abilify) AdvReac Severe Other Verified 09/03/24 23:21 Review of Systems Review of Systems: All systems reviewed & are unremarkable except as noted in HPI and below PMFSH Past Medical History Medical History Chronic pain Suicide attempt Schizotypal disorder Bipolar disorder Asthma Missed PTSD (post-traumatic stress disorder) Generalized anxiety disorder with panic attacks Major depressive disorder Surgical History Surgical History H/O dilation and curettage Family History Family History Father Heart disease Mother Depression Anxiety Alcohol abuse Grandparent Alcohol abuse Heart disease Diabetes mellitus Hypertension Depression Anxiety Social History Social History Social History: Caffeine-Coffee/tea/soda 3 cups daily Years smoked: 2 Smoking status: Former smoker Tobacco type: cigarettes Additional smoking assessment comments: OCCASIONALLY IN PAST Alcohol intake: current Alcohol use details: OCCASIONALLY WHEN NOT Substance use: never Substance use type: does not use Do You Feel Safe in your Home?: Yes Lack of Transportation: No Lack of Food: Never True Current Housing: Decline to Answer Concerned About Future Housing: Decline to Answer Difficulty Paying Gas/Electric Bills: No Difficulty Paying for Meds: No Currently Unemployed: No Education: High School Diploma/GED Difficulty w/ Childcare or Family Care: No Living arrangements: with family Spiritual care concerns: No Agree to blood products: Yes Exam Narrative: EXAMINATION OF ORGAN SYSTEMS/BODY AREAS: Constitutional: Vital signs per nursing GENERAL:[No acute distress, non-toxic appearing.] HEAD: Normal with no signs of head trauma. EYES: EOMI, conjunctiva normal, PERRL ENT: Hearing grossly intact LUNGS: Nonlabored breathing. HEART: [Regular rate and rhythm] ABD: [Soft], [nontender to palpation] EXT: Normal range of motion SKIN: [No rashes or lesions.] NEURO: [Alert and oriented x 3. No gross focal sensory or strength deficits.] Normal speech, no facial asymmetry. PSYCH: Normal affect Course Vital Signs Vital signs: Vital Signs Temperature 98 F 09/03/24 22:50 Pulse Rate 75 09/03/24 22:50 Respiratory Rate 15 09/03/24 22:50 Blood Pressure 125/90 09/03/24 22:50 Pulse Oximetry 100 09/03/24 22:50 Oxygen Delivery Room Air 09/03/24 22:50 Temperature 98 F 09/03/24 22:50 Pulse Rate 80 09/03/24 23:51 Respiratory Rate 17 09/03/24 23:51 Blood Pressure 117/73 09/03/24 23:51 Pulse Oximetry 100 09/03/24 23:51 Oxygen Delivery Room Air 09/03/24 23:21 MDM - Seizure MDM Narrative Medical decision making narrative: 24-year-old female presenting with seizures occurring today, witnessed by boyfriend, history of potential seizures and mother has history of seizures also. Seizure precautions are initiated. Labs are normal. Patient not currently on any medications, agreeable to trying something, I will trial Keppra, the patient does have history of PTSD, have discuss if she has any worsening of psychiatric symptoms on Keppra that she should discontinue this immediately and follow-up with Neurology. She expressed understanding of instructions, remained stable in the emergency department for a period of observation without any recurrence of the symptoms and was discharged in stable condition with return precautions and outpatient follow-up. Lab Data 09/03/24 23:22 09/03/24 23:22 Labs: Lab Results 09/03/24 Range/Units 23:22 WBC 7.1 (4.5-10.0) K/mm3 RBC 4.41 (4.2-5.4) M/mm3 Hgb 12.5 (12.0-15.0) g/dL Hct 38.0 (37.0-47.0) % MCV 86.2 (80-100) fl MCH 28.3 (26-34) pg MCHC 32.9 (32-36) g/dl RDW 13.6 (11.5-14.5) % Plt Count 299 (150-375) k/mm3 MPV 9.4 (7.4-10.4) fl Immature Gran % (Auto) 0.1 (0-0.5) % Neut % (Auto) 57.2 (45.5-73.1) % Lymph % (Auto) 35.2 (18.3-44.2) % Webster % (Auto) 5.2 (2.6-8.5) % Eos % (Auto) 1.7 (0-4.4) % Baso % (Auto) 0.6 (0.2-1.2) % Lymph # (Auto) 2.51 (0.9-3.2) K/mm3 Webster # (Auto) 0.4 (0.1-0.6) K/mm3 Eos # (Auto) 0.1 (0-0.3) K/mm3 Baso # (Auto) 0.0 (0.0-0.1) K/mm3 Abs Immat Gran (auto) 0.01 (0.00-0.031) K/mm3 Absolute Neuts (auto) 4.1 (1.3-6.7) K/mm3 Absolute Nucleated RBC 0.000 (0.0-0.012) K/mm3 Nucleated RBC % 0.0 (0.0-0.2) % Sodium 139 (137-145) mmol/L Potassium 3.8 (3.4-5.0) mmol/L Chloride 103 (98-107) mmol/L Carbon Dioxide 27 (22-30) mmol/L Anion Gap 9 (4-12) mmol/L BUN 6 L (7-17) mg/dL Creatinine 0.76 (0.7-1.0) mg/dL Estim Creat Clear Calc 102 ml/min Estimated GFR > 60 (59 - ) Glucose 90 (65-110) mg/dL Calcium 9.0 (8.4-10.2) mg/dL Discharge Plan Discharge Clinical Impression: Seizure-like activity Patient Disposition: Home, Self-Care Condition: Stable Instructions: Generalized Tonic Clonic Seizures (ED) Additional Instructions: Please follow-up with neurologist for further evaluation and possibly diagnosis for your seizure-like activity. You can always return to the emergency room for any further issues. Please try to avoid any triggers including poor sleep, alcohol or drugs, or bright lights. Patient Language: Scottish Prescriptions: New levetiracetam [Keppra] 500 mg tablet 500 mg PO BID Qty: 60 0RF No Action gabapentin 600 mg tablet 600 mg PO TID propranolol 20 mg tablet 20 mg PO Q12H Patient Comments: takes 4 times per day duloxetine [Cymbalta] 60 mg capsule,delayed release(DR/EC) 60 mg PO QAM Qty: 90 0RF duloxetine [Cymbalta] 30 mg capsule,delayed release(DR/EC) 30 mg PO QHS Qty: 90 0RF Follow-up/Referrals: Sydney Richards DO [Primary Care Provider] - Varghese Duval MD [Physician] - 2 Days
[2024-09-03 23:27] LABS: Basophils Percent Auto 0.6 % (0.2-1.2); Eosinophils Absolute Auto 0.1 K/mm3 (0-0.3); Eosinophils Percent Auto 1.7 % (0-4.4); Hemoglobin 12.5 g/dL (12.0-15.0); Immature Granulocyte Absolute 0.01 K/mm3 (0.00-0.031); Immature Granulocyte Percent A 0.1 % (0-0.5); Lymphocytes Absolute Auto 2.51 K/mm3 (0.9-3.2); Lymphocytes Percent Auto 35.2 % (18.3-44.2); Mean Corpuscular HGB Conc 32.9 g/dl (32-36); Mean Corpuscular Hemoglobin 28.3 pg (26-34); Mean Corpuscular Volume 86.2 fl (80-100); Mean Platelet Volume 9.4 fl (7.4-10.4); Monocytes Absolute Auto 0.4 K/mm3 (0.1-0.6); Monocytes Percent Auto 5.2 % (2.6-8.5); Neutrophils Absolute Auto 4.1 K/mm3 (1.3-6.7); Neutrophils Percent Auto 57.2 % (45.5-73.1); Platelet Count Result 299 k/mm3 (150-375); Red Blood Count 4.41 M/mm3 (4.2-5.4); Red Cell Distribution Width 13.6 % (11.5-14.5); White Blood Count 7.1 K/mm3 (4.5-10.0)
[2024-09-03 23:36] LABS: Anion Gap 9 mmol/L (4-12); Blood Urea Nitrogen 6 mg/dL (7-17); Carbon Dioxide 27 mmol/L (22-30); Chloride 103 mmol/L (98-107); Estimated CRCL calculation 102 ml/min; Estimated Glomerular Filt Rate > 60; Glucose 90 mg/dL (65-110); Potassium 3.8 mmol/L (3.4-5.0); Sodium 139 mmol/L (137-145)
[2024-09-03 23:51] VITALS: BP 117/73; PULSE 80; RESP 17; O2SAT 100
== END 2024-09-04 00:04 | disposition home or self-care (01) ==
PROVIDERS: Emergency Provider Emergency Medicine; PCP Family Medicine
DX: R56.9 Unspecified convulsions (principal); J45.909 Unspecified asthma, uncomplicated; F31.9 Bipolar disorder, unspecified; F43.10 Post-traumatic stress disorder, unspecified; F41.0 Panic disorder [episodic paroxysmal anxiety]; F41.1 Generalized anxiety disorder; Z87.891 Personal history of nicotine dependence; Z79.899 Other long term (current) drug therapy
CPT/HCPCS: 36415; 80048; 85025; 99283; A9270

== ENCOUNTER 2024-09-07 02:05 | Inpatient (IN) | payer OTHER, SELFPAY ==
[2024-09-07] VITALS (14 sets, daily range): BP systolic 94–114; BP diastolic 51–78; PULSE 57–77; RESP 14–21; TEMP 36.4–36.9; O2SAT 96–100; BMI 23.1
--- NOTE | 2024-09-07 02:15 | ECG_ITS ---
Test Date: 2024-09-07 02:10:25 Measurements Intervals [place] Rate: 58 P: 21 OH: 160 QRS: 78 QRSD: 90 T: 60 QT: 387 QTc: 380 Interpretive Statements SINUS BRADYCARDIA No previous ECG available for comparison Electronically Signed On 09-08-2024 16:34:46 CDT by Ayan Tavares M.D.
--- NOTE | 2024-09-07 02:17 | ED.GENADULT ---
HPI - General Adult General Chief complaint: Overdose Stated complaint: Intentional OD Time Seen by Provider: 09/07/24 02:09 History of Present Illness HPI narrative: Patient is a 24-year-old female who presents emergency department this evening status post intentional overdose. Per patient, she took the remainder of her home medications, all of them totaling approximately to 500 mg of propranolol, 500 mg of duloxetine and 5000 mg of Keppra. Patient admits that she did this in an attempt to harm herself. At admits to previous self-harm behavior with strangulation. States that she has been feeling depressed and lonely. Currently denying any symptoms at this time and denies any homicidal ideations. Related Data Home Medications ?Medication ?Instructions ?Recorded ?Confirmed ?Last Taken ?Type gabapentin 600 mg tablet 600 mg PO TID 04/15/23 06/20/24 06/19/24 History propranolol 20 mg tablet 20 mg PO Q12H 06/01/24 06/20/24 06/19/24 History Allergies Allergy/AdvReac Type Severity Reaction Status Date / Time Penicillins Allergy Unknown Swelling Verified 09/03/24 23:21 of Lip/Tongue/Throat aripiprazole (From Abilify) AdvReac Severe Other Verified 09/03/24 23:21 Review of Systems Review of Systems: All systems are reviewed and are negative unless stated otherwise in the HPI. [facility] Past Medical History Medical History Chronic pain Suicide attempt Schizotypal disorder Bipolar disorder Asthma Missed PTSD (post-traumatic stress disorder) Generalized anxiety disorder with panic attacks Major depressive disorder Surgical History Surgical History H/O dilation and curettage Family History Family History Father Heart disease Mother Depression Anxiety Alcohol abuse Grandparent Alcohol abuse Heart disease Diabetes mellitus Hypertension Depression Anxiety Social History Social History Social History: Caffeine-Coffee/tea/soda 3 cups daily Years smoked: 2 Smoking status: Former smoker Tobacco type: cigarettes Additional smoking assessment comments: OCCASIONALLY IN PAST Alcohol intake: current Alcohol use details: OCCASIONALLY WHEN NOT Substance use: never Substance use type: does not use Do You Feel Safe in your Home?: Yes Lack of Transportation: No Lack of Food: Never True Current Housing: Decline to Answer Concerned About Future Housing: Decline to Answer Difficulty Paying Gas/Electric Bills: No Difficulty Paying for Meds: No Currently Unemployed: No Education: High School Diploma/GED Difficulty w/ Childcare or Family Care: No Living arrangements: with family Spiritual care concerns: No Agree to blood products: Yes Exam Narrative: General: Alert, awake, afebrile, in no acute distress. HEENT: PERRL dilated, no rhinorrhea, no post nasal drip, oropharynx clear. Neck: Trachea midline, no JVD, no lymphadenopathy. Cardiovascular: Regular rate and rhythm, no murmurs, rubs or gallops, no peripheral edema. Respiratory: Clear to auscultation bilaterally, no tachypnea, no wheezing, no rhonchi, no rubs, no respiratory distress. Abdomen: Soft, nontender, nondistended, no rebound, no guarding, no peritoneal signs. Musculoskeletal: No joint swelling or deformity, normal muscle tone. Skin: No rashes or petechia, no signs of infection. Psychiatric: Alert and oriented, normal behavior and judgment for situation. Neurological: Alert and oriented to person, place, and time. Follows all commands. No focal deficits, speech is clear and fluent. Course Vital Signs Vital signs: Vital Signs Temperature 97.5 F L 09/07/24 02:04 Pulse Rate 69 09/07/24 02:04 Respiratory Rate 17 09/07/24 02:04 Blood Pressure 106/61 09/07/24 02:04 Pulse Oximetry 99 09/07/24 02:04 Oxygen Delivery Room Air 09/07/24 02:04 Temperature 97.5 F L 09/07/24 02:04 Pulse Rate 57 L 09/07/24 03:18 Respiratory Rate 18 09/07/24 03:18 Blood Pressure 111/76 09/07/24 03:18 Pulse Oximetry 98 09/07/24 03:18 Oxygen Delivery Room Air 09/07/24 02:04 Medical Decision Making MDM Narrative Medical decision making narrative: The patient was evaluated by myself in the emergency department. History is obtained from patient who is an independent historian along with EMS report and physical exam was performed. External medical records were reviewed at this time. IV was established and pertinent tests were ordered. Poison Control was contacted at 221 and per their recommendation, patient was administered 70 g of activated charcoal. Patient will need to be monitored closely in the ICU for at least 12 hours as the propranolol is long acting and will cause hypotension. Propranolol will also cause seizures and if this occurs, patient is to be treated with benzos. If patient is hypotension does not improve with IV fluids, therapy is glucagon followed by pressors, poison control recommends maxing out up to 3 pressors before initiating any insulin or intra lipids. Patient was administered a 2 L IV fluid bolus with normal saline. Patient also swallowed the full 70 g of charcoal at this time. EKG was obtained which revealed sinus bradycardia rate of 58 beats per minute, no evidence of acute ischemia. EKG was independently interpreted by me and is currently pending official cardiology read. Laboratory results obtained revealing no acute process. Urinalysis unremarkable. Urine drug screen negative. Viral swab negative for COVID/influenza/RSV. ABG unremarkable. Urine test negative. Differential diagnosis considerations include depression, anxiety, suicide attempt, medication overdose, attention seeking behavior. Comorbidities impacting this visit include history of depression and anxiety with previous suicide attempt. I have evaluated and discussed social determinants of health with the patient that could potentially impact subsequent diagnosis and treatment plans. On repeat assessment of the patient, reevaluation revealed that the patient is doing well and is in no acute distress. Patient symptoms have remained stable since she arrived to our emergency department. Repeat vital signs were all reviewed and noted to be stable. Differential diagnosis and treatment plan were discussed with the patient at bedside. Patient agrees with discussion and after shared medical decision making agrees with admission. All questions were answered to the patient's satisfaction. This was discussed with the on-call photographic laboratory technician Dr. Malave at 3 regarding ICU admission. Case was discussed with the on-call hospitalist Dr. King at [phone] and she accepted admission. Patient was admitted to our intensive care unit in stable condition. Vital Signs Vital Signs: Vital Signs Temperature 97.5 F L 09/07/24 02:04 Pulse Rate 69 09/07/24 02:04 Respiratory Rate 17 09/07/24 02:04 Blood Pressure 106/61 09/07/24 02:04 Pulse Oximetry 99 09/07/24 02:04 Oxygen Delivery Room Air 09/07/24 02:04 Temperature 97.5 F L 09/07/24 02:04 Pulse Rate 57 L 09/07/24 03:18 Respiratory Rate 18 09/07/24 03:18 Blood Pressure 111/76 09/07/24 03:18 Pulse Oximetry 98 09/07/24 03:18 Oxygen Delivery Room Air 09/07/24 02:04 Lab Data 09/07/24 02:25 09/07/24 02:25 Labs: Lab Results 09/07/24 09/07/24 09/07/24 Range/Units 02:25 02:27 02:29 WBC 7.0 (4.5-10.0) K/mm3 RBC 4.10 L (4.2-5.4) M/mm3 Hgb 11.7 L (12.0-15.0) g/dL Hct 35.0 L (37.0-47.0) % MCV 85.4 (80-100) fl MCH 28.5 (26-34) pg MCHC 33.4 (32-36) g/dl RDW 13.3 (11.5-14.5) % Plt Count 279 (150-375) k/mm3 MPV 9.8 (7.4-10.4) fl Immature Gran % (Auto) 0.1 (0-0.5) % Neut % (Auto) 51.6 (45.5-73.1) % Lymph % (Auto) 38.4 (18.3-44.2) % [place] % (Auto) 7.2 (2.6-8.5) % Eos % (Auto) 2.1 (0-4.4) % Baso % (Auto) 0.6 (0.2-1.2) % Lymph # (Auto) 2.68 (0.9-3.2) K/mm3 [place] # (Auto) 0.5 (0.1-0.6) K/mm3 Eos # (Auto) 0.2 (0-0.3) K/mm3 Baso # (Auto) 0.0 (0.0-0.1) K/mm3 Abs Immat Gran (auto) 0.01 (0.00-0.031) K/mm3 Absolute Neuts (auto) 3.6 (1.3-6.7) K/mm3 Absolute Nucleated RBC 0.000 (0.0-0.012) K/mm3 Nucleated RBC % 0.0 (0.0-0.2) % Methemoglobin (0-1.5) %THb Sodium 138 (137-145) mmol/L Potassium 3.7 (3.4-5.0) mmol/L Chloride 105 (98-107) mmol/L Carbon Dioxide 22 (22-30) mmol/L Anion Gap 11 (4-12) mmol/L BUN 10 (7-17) mg/dL Creatinine 0.61 L (0.7-1.0) mg/dL Estim Creat Clear Calc 124 ml/min Estimated GFR > 60 (59 - ) Glucose 129 H (65-110) mg/dL Lactic Acid (0.7-2.0) mmol/L Calcium 8.9 (8.4-10.2) mg/dL Magnesium 1.9 (1.6-2.3) mg/dL Total Bilirubin 1.5 H (0.2-1.3) mg/dL AST 18 (14-36) U/L ALT 12 (6-35) U/L Alkaline Phosphatase 80 (38-126) U/L Troponin I < 0.012 (0.000-0.034) ng/mL Total Protein 7.0 (6.3-8.2) g/dL Albumin 4.1 (3.5-5.1) g/dL TSH 2.330 (0.465-4.680) uIU/mL Urine Color Yellow (Yellow) Urine Appearance Clear (Clear) Urine pH 5.5 (5.0-9.0) Ur Specific [place] 1.007 (1.001-1.035) Urine Protein Negative (Negative) mg/dL Urine Glucose (UA) Negative (Negative) mg/dL Urine Ketones Negative (Negative) mg/dL Ur Blood (Man) Negative (Negative) Urine Nitrate Negative (Negative) Urine Bilirubin Negative (Negative) Urine Urobilinogen 0.2 (<2.0) mg/dL Leukocyte Esterase Rfl Trace H (Negative) STACEY/UL Urine RBC 0-2 (0-2) /hpf Urine WBC 0-5 (0-3) /hpf Ur Squamous Epith Cells None seen (Few) /hpf Urine Bacteria None seen /hpf Urine Casts 0-2 POC Urine HCG, Qual Negative (Negative) Salicylates < 1.0 L (2-20) mg/dL Urine Opiates Screen Negative (Negative) Urine Methadone Screen Negative (Negative) Acetaminophen < 10 L (10-30) ug/mL Ur Barbiturates Screen Negative (Negative) Levetiracetam Pending Ur Phencyclidine Scrn Negative (Negative) Ur Amphetamine Screen Negative (Negative) U Benzodiazepines Scrn Negative (Negative) Urine Cocaine Screen Negative (Negative) U Cannabinoids Screen Negative (Negative) Ethyl Alcohol < 10 (<10) mg/dL Influenza A (RT-PCR) Negative (Negative) Influenza B (RT-PCR) Negative (Negative) RSV (RT-PCR) Negative (Negative) SARS-CoV-2 RNA (RT-PCR) Negative (Negative) 09/07/24 Range/Units 02:45 WBC (4.5-10.0) K/mm3 RBC (4.2-5.4) M/mm3 Hgb (12.0-15.0) g/dL Hct (37.0-47.0) % MCV (80-100) fl MCH (26-34) pg MCHC (32-36) g/dl RDW (11.5-14.5) % Plt Count (150-375) k/mm3 MPV (7.4-10.4) fl Immature Gran % (Auto) (0-0.5) % Neut % (Auto) (45.5-73.1) % Lymph % (Auto) (18.3-44.2) % [place] % (Auto) (2.6-8.5) % Eos % (Auto) (0-4.4) % Baso % (Auto) (0.2-1.2) % Lymph # (Auto) (0.9-3.2) K/mm3 [place] # (Auto) (0.1-0.6) K/mm3 Eos # (Auto) (0-0.3) K/mm3 Baso # (Auto) (0.0-0.1) K/mm3 Abs Immat Gran (auto) (0.00-0.031) K/mm3 Absolute Neuts (auto) (1.3-6.7) K/mm3 Absolute Nucleated RBC (0.0-0.012) K/mm3 Nucleated RBC % (0.0-0.2) % Methemoglobin 0.2 (0-1.5) %THb Sodium (137-145) mmol/L Potassium (3.4-5.0) mmol/L Chloride (98-107) mmol/L Carbon Dioxide (22-30) mmol/L Anion Gap (4-12) mmol/L BUN (7-17) mg/dL Creatinine (0.7-1.0) mg/dL Estim Creat Clear Calc ml/min Estimated GFR (59 - ) Glucose (65-110) mg/dL Lactic Acid 1.1 (0.7-2.0) mmol/L Calcium (8.4-10.2) mg/dL Magnesium (1.6-2.3) mg/dL Total Bilirubin (0.2-1.3) mg/dL AST (14-36) U/L ALT (6-35) U/L Alkaline Phosphatase (38-126) U/L Troponin I Cancelled (0.000-0.034) ng/mL Total Protein (6.3-8.2) g/dL Albumin (3.5-5.1) g/dL TSH (0.465-4.680) uIU/mL Urine Color (Yellow) Urine Appearance (Clear) Urine pH (5.0-9.0) Ur Specific [place] (1.001-1.035) Urine Protein (Negative) mg/dL Urine Glucose (UA) (Negative) mg/dL Urine Ketones (Negative) mg/dL Ur Blood (Man) (Negative) Urine Nitrate (Negative) Urine Bilirubin (Negative) Urine Urobilinogen (<2.0) mg/dL Leukocyte Esterase Rfl (Negative) STACEY/UL Urine RBC (0-2) /hpf Urine WBC (0-3) /hpf Ur Squamous Epith Cells (Few) /hpf Urine Bacteria /hpf Urine Casts POC Urine HCG, Qual (Negative) Salicylates (2-20) mg/dL Urine Opiates Screen (Negative) Urine Methadone Screen (Negative) Acetaminophen (10-30) ug/mL Ur Barbiturates Screen (Negative) Levetiracetam Ur Phencyclidine Scrn (Negative) Ur Amphetamine Screen (Negative) U Benzodiazepines Scrn (Negative) Urine Cocaine Screen (Negative) U Cannabinoids Screen (Negative) Ethyl Alcohol (<10) mg/dL Influenza A (RT-PCR) (Negative) Influenza B (RT-PCR) (Negative) RSV (RT-PCR) (Negative) SARS-CoV-2 RNA (RT-PCR) (Negative) ABG Data ABG results: 09/07/24 02:45 Puncture Site Right brachial ABG pH 7.429 ABG pCO2 36.7 ABG pO2 104.0 H ABG PO2/FiO2 Ratio 4.95 ABG HCO3 23.8 ABG O2 Saturation 97.9 ABG O2 Content 16.6 ABG Base Excess -0.2 A-a Gradient 1.8 Oxyhemoglobin 93.0 Carboxyhemoglobin 4.6 H Reduced Hemoglobin 2.2 Total Hemoglobin 12.6 O2 Delivery Device Room air O2 Liters/Min 0.0 FiO2 21 Discharge Plan Discharge Clinical Impression: Suicide attempt, Attention seeking behavior, Suicide attempt by beta romaine overdose, Drug overdose, intentional Patient Disposition: Still a Patient Condition: Critical Patient Language: Citizen Of [place] Prescriptions: No Action gabapentin 600 mg tablet 600 mg PO TID propranolol 20 mg tablet 20 mg PO Q12H Patient Comments: takes 4 times per day duloxetine [Cymbalta] 60 mg capsule,delayed release(DR/EC) 60 mg PO QAM Qty: 90 0RF levetiracetam [Keppra] 500 mg tablet 500 mg PO BID Qty: 60 0RF duloxetine [Cymbalta] 30 mg capsule,delayed release(DR/EC) 30 mg PO QHS Qty: 90 0RF Follow-up/Referrals: Sydney Richards DO [Primary Care Provider] - Time of Disposition: 03:22
[2024-09-07 02:32] LABS: BEDSIDEPREGUCG Negative (Negative)
--- OUTSIDE RECORDS SUMMARY | 2024-09-07 02:32 | XMS_ITS ---
Author Organization [facility] [employer] Address [address] [place] [address] Care Team Providers Care Dude Wrangler Name Role Phone Sydney GALEANO DO Primary Care Provider Mauro Fay Unavailable [phone] Clarke Spear Unavailable [phone] Allergies Allergen (clinical drug ingredient) Drug/Non Drug [...] point) Encounters Encounter Location Date Provider Diagnosis [facility], [address] [address] 05/29/2024 Clarke Spear Plan Of Treatment No Information Progress Notes * ALEKSANDAR ROSALES LDOB: [birth year] (24 yo F)Acc No.[id number]:05/29/2024 Patient: ALEKSANDAR WILLIAMSON Provider: LISA Gupta :2000 A ge:23 Y S ex:Female Date:05/29/2024 Address:[facility] Pcp:Sydney GALEANO DO Subjective: * Chief Complaints: [...] es D o you have Power of Molding And Trim Installer for Health or Medical? N o S [...] * Visit Code: * Procedure Codes: * LLURGICAL SPECIALIST Sign off status: Completed true * Provider: LISA Gupta Date: 07/30/2023 Generated for Viv raymond/Magaly/Luzma on: 0 09/07/2024 02:31 AM CDT History and Physical Notes * HPI [...] all Total Score: 14 Interpretation: Moderate Depression [place]-Suicide Severity Rating Scale Suicide Risk (CSRS-screener) in [...]
--- OUTSIDE RECORDS SUMMARY | 2024-09-07 02:32 | XMS_ITS ---
Author Organization [facility] [employer] Address [address] [facility] [address] [place] [address] Care Team Providers Care Body Builder Apprentice Name Role Phone Sydney GALEANO DO Primary Care Provider Mauro Fay Unavailable [phone] Sandra Dyer [phone] Social History Sex Assigned At : Social History Observation Description Sex Assigned At Female Encounters Encounter Location Date Provider Diagnosis [facility] [facility], [address] [address] [facility] [address] [place] [address] 05/11/2024 Sandra Dyer Plan Of Treatment No Information Progress Notes * ALEKSANDAR ROSALES LDOB: [birth year] (24 yo F)Acc No.[id number]:05/11/2024 Patient: Linda ESCALONAALEKSANDAR Provider: Chito Dyer :2000 A ge:23 Y S ex:Female Date:05/11/2024 [facility] [facility] Pcp:Sydney GALEANO DO Data: * Chief Complaints: * Assessment: Plan: * Treatment: * Billing Information: * Visit Code: * Procedure Codes: * RIFUGAL EXTRACTOR OPERATOR Sign off status: Completed Signatures: No Ad Hoc Signature Added true * Provider: Chito Dyer Date: 07/11/2023 Generated for Viv raymond/Magaly/Litaitting on: 0 09/07/2024 02:31 AM CDT
--- OUTSIDE RECORDS SUMMARY | 2024-09-07 02:32 | XMS_ITS ---
Author Organization [facility] [place] Address [address] [place] [address] Care Team Providers Care Catalogue Compiler Name Role Phone Sydney GALEANO DO Primary Care Provider Mauro Fay Unavailable [phone] Sandra Dyer Unavailable [phone] REASON FOR VISIT Depression screening positive, New [...] point) Encounters Encounter Location Date Provider Diagnosis [facility], [facility] [address] [place] [address] 05/04/2024 Sandra Dyer PTSD (post-traumatic stress disorder) F43.10 and Schizoaffective disorder, bipolar type F25.0 Assessments Encounter Date Diagnosis (ICD Code) Assessment Notes Treatment Notes Treatment Clinical Notes Section Notes 05/04/2024 PTSD (post-traumatic stress disorder) (ICD-10 - F43.10) Preferred name: Ayanna Marital Status: Single Living Arrangement: parents Support System: friends Highest Level of Education: some college 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 Depression screening positive. 2. New patient appointment, history of depression, schizotypal. * HPI: D epression screening: PHQ-9 L ittle interest or pleasure in doing things S everal days, F eeling down, depressed, or hopeless S everal days, T rouble falling or staying asleep, or sleeping too much N early every day, F eeling tired or having little energy Nearly every day, P oor appetite or overeating N early every day, F eeling bad about yourself or that you are a failure, or have let yourself or your family down S everal days, Trouble concentrating on things, such as reading the newspaper or watching television N early every day, M oving or speaking so slowly that other people could have noticed; or the opposite, being so fidgety or restless that you have been moving around a lot more than usual M ore than half the days, T houghts that you would be better off or of hurting yourself in some way Not at all, T otal Score 1 7, I nterpretation M oderately Severe Depression. I ntervention D epression Screening Findings P ositve, F ollow-Up for Depression M entde health treatment assessment, Patient follow-up to return when and if necessary, S uicide Risk Assessment Performed 1 07/04/2023 , A dditional Evaluation for Depression P sychiatric interview and evaluation, N chitra of the standardized tool used for adult depression screening: P atient Health Questionnaire (PHQ-9). P ast Psychiatric Hospitalizations: Previous psychiatric hospitalizations P revious Psychiatric Hospitalization N o. P ast History of Suicidal attempt H ave you ever attempted suicide in the past Y es, M ethod of suicide attempt C broderick,. C [place]umb[place]-Suicide Severity Rating Scale: Suicide Risk (CSRS-screener) i n the past one month Have you wished you were or wished you could go to sleep and not wake up? N o, i n the past one month Have you actually had any thoughts of killing yourself? N o, H ave you ever done anything, started to do anything, or prepared to do anything to end your life? Y es. D epression Screening: JOAQUIM-7 (2018 Edition) F eeling nervous, anxious, or on edge?Nearly every day, N ot being able to stop or control worrying N early every day, W orrying too much about different things N early every day, T rouble relaxing N early every day, B eing so restless that it is hard to sit still N early every day, B ecoming easily annoyed or irritable S everal days, F eeling afraid as if something awful might happen More than half the days, T otal JOAQUIM-7 Score 1 8, I f you checked any problems, how difficult have they made it for you to do your work, take care of things at home, or get along with other people? S omewhat difficult, I nterpretation of Total ( 15 and over) Severe. H istory of Presenting Problem: Client presents today for initial assessment and psychotherapy [...] of self and identity. * Behavioral History: P ast psychiatric Hospitalization:No. H istory of suicidal attempt?:Yes. T ype of previous suicidal attempt:Cutting. * Medical History: P ast Psychiatric History: Anxiety Disorder,PTSD,Psychotic Episode,Bipolar Disorder, abdominal aortic [...] Episode,Schizoaffective Disorder,Major Depressive Episode,Bipolar Disorder. * Family History: F ather: None. M aternal Aunt: None. M aternal Uncle: None. P aternal Uncle: None.?Paternal Aunt: Schizophrenia. M other: Bipolar Disorder. P aternal Grandfather: None. Paternal Grandmother: Psychotic Episode,Major Depressive Episode,drug use,Alcohol Abuse. M aternal Grandfather: drug use,Alcohol Abuse. M aternal Grandmother: None. B rother: Psychotic Episode,Major Depressive Episode,ADHD,drug use. S ister: Adopted. S on: None. D aughter: None. * Social History: T obacco Use: T obacco Control (Standard) T obacco use: C urrent smoker, W hen did you start smoking? 0 02/27/2024, H ow often do you smoke cigarettes? E very day, H ow many cigarettes a day do you smoke? 5 or less, H ow soon after you wake up do you smoke your first cigarette? A fter 60 minutes, A re you interested in quitting? N ot ready to quit. M igrated Social History: M igrated Social History: Tobacco Years: Never smoker 07/30/2021. D rug/Alcohol: D rugs H ave you used drugs other than those for medical reasons in the past 12 months??Yes, M ethamphetamine? N o, C rack? N o, L SD? N o, E cstacy? N o, P rescription opiates? N o, M arijuana? Y es, K etamine? N o, P CP? No, I s there a minor (18 years or younger) at risk at home? Y es, A re you still using? Y es, D o you want treatment? N o. A EMERSON-C (Standard) D id you have a drink containing alcohol in the past year? Y es, H ow often did you have six or more drinks on one occasion in the past year? L ess than monthly (1 point), H ow many drinks did you have on a typical day when you were drinking in the past year? 1 or 2 drinks (0 point), H ow often did you have a drink containing alcohol in the past year? M onthly or less (1 point), P oints 3 , I nterpretation P ositive. M iscellaneous: O ccupation: Unemployed. Safety issues A re there any firearms in the house? N o. A dvance Care Planning A re you your own decision-maker Y es, D o you have Power of Animal Chiropractor for Health or Medical? N o. S ocial History: H ousehold M arital Status: S sunshine, N umber of Adults in household: 3 , N umber of Children in Household: 2 , L evel of Education: F in[employer] School. * Vitals: * Examination: G eneral Examination: - Mental Status Examination: - Patient is alert [...] unable to continue due to physical limitations. P sychiatry: Appearance: w ell-groomed. Abnormal body movements: n one. Affect / mood: a ppropriate. Aggression: l ow. Anger control: g ood. Attention: n ormal in conversation. Attitude: c ooperative. Homicidal ideation: n one. Suicidal ideation: n one. Memory status: n o impairment noted. Degree of awareness of surroundings: w ithin normal limits.? Delusions: y es. Hallucinations: n o. Impulse control: f air. Insight: g ood. Intellectual functioning: n o impairment noted. Judgement: f air. Orientation: a wake, alert and oriented x 3. Perceptual disorders: n o perceptual disorder noted. Psychomotor activity: w ithin normal range. Speech / language: n ormal rate, volume, and articulation (RVR). Thought content: a ppropriate. Thought process: i ntact. Assessment: * Assessment: 1. P TSD (post-traumatic stress disorder) - F43.10 (Primary) 2 . 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 Financial Concerns: james Did not elaborate though noted stress from [...] that it causes a lot of stress. Interests/Skills/Hobbies: art, used to fence, attending concerts. [...] concerns. Plan: * Behavioral Health Treatment Plan: I mported Date:05/04/2024 05:03 PM Imported By:Sandra Dyer Term Therapy ProgramStrengthsGood social supportSelf-awareness of weakness, [...] 2024-08-04 Sandra Dyer * Treatment: * Procedure Codes: 9 6127 BEHAV ASSMT W/SCORE & DOCD/STAND INSTRUMENT, 67268 PSYCHIATRIC DIAGNOSTIC EVALUATION * Follow Up: 1 Week * Billing Information: * Visit Code: * Procedure Codes: 42605 BEHAV ASSMT W/SCORE & DOCD/STAND INSTRUMENT. 80131 PSYCHIATRIC DIAGNOSTIC EVALUATION. * RESIDENTIAL SERVICE TECHNICIAN Sign off status: Completed Signatures: No Ad Hoc Signature Added true * Provider: Chito Dyer Date: 07/04/2023 Generated for Viv Leon/Luzma on: 0 09/07/2024 02:32 AM CDT
--- OUTSIDE RECORDS SUMMARY | 2024-09-07 02:32 | XMS_ITS | Clinical Summary ---
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 Gender Identity Not on file Sexual Orientation Not on file Obstetrics History Last Filed Vital Signs Vital Sign Reading Time Taken Comments Blood Pressure 114/72 03/11/2023 9:24 AM CDT Pulse 78 03/11/2023 9:24 AM CDT Temperature 37.1 C (98.8 F) 08/10/2017 6:44 PM 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
--- OUTSIDE RECORDS SUMMARY | 2024-09-07 02:32 | XMS_ITS | Clinical Summary ---
Author Organization 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 Pulse 74 05/14/2024 7:57 PM TEXTURING MACHINE FIXER Temperature 36.8 C (98.2 F) 05/14/2024 7:57 PM TEXTURING MACHINE FIXER Respiratory Rate 18 05/14/2024 7:57 PM TEXTURING MACHINE FIXER Oxygen Saturation 98% 05/14/2024 7:57 PM TEXTURING MACHINE FIXER Inhaled Oxygen Concentration - - Weight 68.5 kg (151 lb 0.2 oz) 05/14/2024 7:57 P M TEXTURING MACHINE FIXER Height 172.7 cm (5' 8 ) 05/14/2024 7:57 PM TEXTURING MACHINE FIXER Body Mass Index 22.96 05/14/2024 7:57 PM TEXTURING MACHINE FIXER Plan of Treatment Health Maintenance Due Date [...] patient's age to complete this topic Insurance [employer] Care Teams School Health Aide Relationship Specialty Start Date End Date Sydney Richards DO [address] [place] [address] PCP - General FAMILY PRACTICE 04/05/24
--- OUTSIDE RECORDS SUMMARY | 2024-09-07 02:32 | XMS_ITS | Patient Health Record ---
Author Organization [facility] [employer] Address [address] [place] [address] Care Team Providers Care Tavern Car Attendant Name Role Phone Sydney GALEANO DO Primary Care Provider Mauro Fay Unavailable [phone] [facility], Provider Unavailable Unavailable Sandra Dyer Unavailable [phone] Clarke Spear Unavailable [phone] Allergies Allergen (clinical drug ingredient) Drug/Non Drug [...] Problem Status W/U Status Risk Notes Problem 35066288 Schizoaffective disorder, bipolar type (F25.0) Active confirmed Problem 93546636 PTSD (post-traumatic stress disorder) (F43.10) Active confirmed Problem Current smoker (68153405) Current smoker (F17.200) Active confirmed Problem 56205405 Hypertension, unspecified type (401.9) Active confirmed Problem 56321971 Personality disorder (F60.9) Active confirmed Vital Signs Heart Rate 115 /min 04/28/2024 Blood pressure diastolic 90 mm Hg 04/28/2024 Weight-kg 68.67 kg 04/28/2024 Blood pressure systolic 134 mm Hg 04/28/2024 Weight 151.4 lbs 04/28/2024 Encounters Encounter Location Date Provider Diagnosis Adeyoh [facility] [address] [address] 03/08/2024 Clarke Clubb Schizoaffective disorder, bipolar type F25.0 and PTSD (post-traumatic stress disorder) F43.10 [employer], [employer] [address] [place] [address] 03/22/2024 Clarke Clubb Schizoaffective disorder, bipolar type F25.0 and PTSD (post-traumatic stress disorder) F43.10 [employer] [address] [place] [address] 04/05/2024 Clarke Clubb Schizoaffective disorder, bipolar type F25.0 ; PTSD (post-traumatic stress disorder) F43.10 ; Personality disorder F60.9 ; Current smoker F17.200 and Hypertension, unspecified type 401.9 [employer] [facility] [address] [place] [address] 04/28/2024 Clarke Clubb PTSD (post-traumatic stress disorder) F43.10 ; Personality disorder F60.9 ; Current smoker F17.200 and Hypertension, unspecified type 401.9 [facility], [facility] [address] [place] [address] 05/04/2024 Sandra Riversdainter PTSD (post-traumatic stress disorder) F43.10 and Schizoaffective disorder, bipolar type F25.0 [facility] [employer] [facility], [employer] [address] [place] [address] 05/11/2024 Sandrarubin Riversliter [facility] [employer] [facility], [facility] [address] [place] [address] 05/29/2024 Clarke Clubb [facility] [employer] [facility] [address] [place] [address] 11/13/2023 Provider [facility] [employer] [facility] [address] [place] [address] 11/14/2023 Provider [facility] [employer] [facility] [address] [place] [address] 03/08/2024 Mauro East Assessments Encounter Date Diagnosis (ICD Code) Assessment Notes Treatment Notes Treatment Clinical Notes Section Notes 03/08/2024 Schizoaffective disorder, bipolar type (ICD-10 - [...] - Provided referral to [facility]son in [place] for EMDR therapy - Phone number: [phone] 7. Labs and follow-up - Order baseline [...] discussing control - schedule an apt with PLUGGER MAN 9. Additional notes - Encouraged use of GoodRx for medication cost savings - Discussed Helo tr for direct communication with provider - [...] - Provided referral to [facility]son in [place] for EMDR therapy - Phone number: [phone] 7. Labs and follow-up - Order baseline [...] discussing control - schedule an apt with PLUGGER MAN 9. Additional notes - Encouraged use of GoodRx for medication cost savings - Discussed Helo tr for direct communication with provider - Informed her about walk-in clinic availability 03/22/2024 Schizoaffective disorder, bipolar type (ICD-10 - [...] concerning side effects or worsening symptoms 04/05/2024 Schizoaffective disorder, bipolar type (ICD-10 - [...] to differentiate psychosis vs. trauma-related symptoms. 04/28/2024 PTSD (post-traumatic stress disorder) (ICD-10 - [...] as therapy appointment with if possible. 04/28/2024 Personality disorder (ICD-10 - F60.9) 1. [...] day as therapy appointment with if possible. 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 Financial Concerns: yekar Did not elaborate though noted stress from being unemployed History: [employer]. 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 04/28/2024 Current smoker (ICD-10 - F17.200) 1-866-Quit - Yes [place] Tobacco Quitline Call a Smoking Quitline The National Cancer [place] Smoking Quitline, (8-878-85O-QUIT) Smokefree.gov, which connects you with your State's Quitline, (4-547-ADDFBIS) Veterans Smoking Quitline, (0-394-TKQRKSR) 1. Anxiety - Continue propranolol 10mg three [...] concerning side effects or worsening symptoms 04/05/2024 Current smoker (ICD-10 - F17.200) 1. [...] to differentiate psychosis vs. trauma-related symptoms. 04/28/2024 Hypertension, unspecified type (ICD9-CM - 401.9) 1. Anxiety - Continue propranolol 10mg three times a day as needed for situational anxiety. - Encourage attendance at scheduled therapy appointment with therapist - Monitor anxiety levels during follow-up visits. - Patient rates current anxiety as 10. 2. Depression - Continue duloxetine 90mg daily. [...] 8. Follow-up Appointment - Schedule follow-up with DNP, ANJUMP Clarke Spear on same day as therapy appointment with if possible. 04/05/2024 Hypertension, unspecified type (ICD9-CM - 401.9) [...] - Provided referral to [facility]son in [place] for EMDR therapy - Phone number: [phone] 7. Labs and follow-up - Order baseline [...] discussing control - schedule an apt with PLUGGER MAN 9. Additional notes - Encouraged use of GoodRx for medication cost savings - Discussed [employer] tr for direct communication with provider - Informed her about walk-in clinic availability Plan Of Treatment Pending Test Test Name Order Date Vitamin D, 1,25 Dihydroxy 03/08/2024 LIPID PANEL, STANDARD (7600) 03/08/2024 COMPREHENSIVE METABOLIC PANEL (88338) AST (822) 03/08/2024 ALT (823) 03/08/2024 CBC (H/H, RBC, INDICES, WBC, PLT) (1759) 03/08/2024 VITAMIN B12 (927) 03/08/2024 TSH W/REFLEX TO FT4 (39733) 03/08/2024 UDT 03/08/2024 Hemoglobin A1C 03/08/2024 Insurance Providers Payer Name Payer Address Payer Phone Subscriber Number Group Number Insured Name Patient Relationship to Insured Coverage Start Date Coverage End Date [facility] [address] [place] [address] [id number] [place] APARNANANDO Child - Insured has Financial Responsibility [...]
--- OUTSIDE RECORDS SUMMARY | 2024-09-07 02:32 | XMS_ITS | Referral Summary ---
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 Gender Identity Not on file Sexual Orientation Not on file Last Filed Vital Signs Vital Sign Reading Time Taken Comments Blood Pressure 114/72 03/11/2023 9:24 AM CDT Pulse 78 03/11/2023 9:24 AM CDT Temperature 37.1 C (98.8 F) 08/10/2017 6:44 PM SAUSAGE STRINGER Respiratory Rate 18 03/11/2023 9:24 AM CDT Oxygen Saturation 98% 03/11/2023 9:24 AM CDT Inhaled Oxygen Concentration - - Weight 72.6 kg (160 lb) 03/11/2023 9:24 AM CDT Height 172.7 cm (5' 7.99 ) 03/11/2023 9:24 AM CD T Body Mass Index 24.33 03/11/2023 9:24 AM CDT Plan of Treatment Not on file Insurance ANTHEM ACCESS ANTHEM ACCESS ANTHEM ACCESS Care Teams Public Relations Coordinator Relationship Specialty Start Date End Date Sydney Richards DO PCP - General Family Medicine 10/15/22 Sydney Richards DO Family Medicine 10/15/22
[2024-09-07 02:36] LABS: Basophils Percent Auto 0.6 % (0.2-1.2); Eosinophils Absolute Auto 0.2 K/mm3 (0-0.3); Eosinophils Percent Auto 2.1 % (0-4.4); Hemoglobin 11.7 g/dL (12.0-15.0); Immature Granulocyte Absolute 0.01 K/mm3 (0.00-0.031); Immature Granulocyte Percent A 0.1 % (0-0.5); Lymphocytes Absolute Auto 2.68 K/mm3 (0.9-3.2); Lymphocytes Percent Auto 38.4 % (18.3-44.2); Mean Corpuscular HGB Conc 33.4 g/dl (32-36); Mean Corpuscular Hemoglobin 28.5 pg (26-34); Mean Corpuscular Volume 85.4 fl (80-100); Mean Platelet Volume 9.8 fl (7.4-10.4); Monocytes Absolute Auto 0.5 K/mm3 (0.1-0.6); Monocytes Percent Auto 7.2 % (2.6-8.5); Neutrophils Absolute Auto 3.6 K/mm3 (1.3-6.7); Neutrophils Percent Auto 51.6 % (45.5-73.1); Platelet Count Result 279 k/mm3 (150-375); Red Cell Distribution Width 13.3 % (11.5-14.5)
[2024-09-07 02:41] LABS: Add Urine Microscopic? YES; Appearance Urine Clear (Clear); Bacteria Urine None Seen /hpf; Bilirubin Urine Negative (Negative); Blood Urine Negative (Negative); Color Urine Yellow (Yellow); Glucose Urine UA Negative (Negative); Ketones Urine Negative (Negative); Leukocyte Esterase Ur Trace LEU/UL (Negative); Nitrate Urine Negative (Negative); Non Pathogenic Casts 0-2; Protein Urine Negative (Negative); RBC Urine 0-2 /hpf (0-2); Specific Grav Ur 1.007 (1.001-1.035); Squamous Epithelial Cell Urine None Seen /hpf (Few); Urobilinogen Urine 0.2 mg/dL (<2.0); WBC Urine 0-5 /hpf (0-3); pH Urine 5.5 (5.0-9.0)
[2024-09-07 02:45] LABS: Acetaminophen < 10 ug/mL (10-30); Ethanol < 10 mg/dL (<10); Salicylate < 1.0 mg/dL (2-20)
[2024-09-07 02:46] LABS: Alanine Aminotransferase 12 U/L (6-35); Albumin Level 4.1 g/dL (3.5-5.1); Alkaline Phosphatase 80 U/L (38-126); Anion Gap 11 mmol/L (4-12); Aspartate Amino Transferase 18 U/L (14-36); Bilirubin,Total 1.5 mg/dL (0.2-1.3); Blood Urea Nitrogen 10 mg/dL (7-17); Calcium 8.9 mg/dL (8.4-10.2); Carbon Dioxide 22 mmol/L (22-30); Chloride 105 mmol/L (98-107); Estimated CRCL calculation 124 ml/min; Estimated Glomerular Filt Rate > 60; Glucose 129 mg/dL (65-110); Magnesium 1.9 mg/dL (1.6-2.3); Potassium 3.7 mmol/L (3.4-5.0); Sodium 138 mmol/L (137-145)
[2024-09-07] MEDS: CHARCOAL ACTIVATED LIQUID 50 GM/240 ML BOTTLE 70 GM PO (02:47)
[2024-09-07] MEDS: SODIUM CHLORIDE 0.9% IV 1,000 ML 999 ML IV CONT ×2 (02:47→03:50)
[2024-09-07 02:55] LABS: Amphetamine Screen Urine Negative (Negative); Barbiturate Screen Urine Negative (Negative); Benzodiazepines Screen Urine Negative (Negative); Cannabinoid Screen Urine Negative (Negative); Cocaine Screen Urine Negative (Negative); Methadone Screen Urine Negative (Negative); Opiate Screen Urine Negative (Negative); Phencyclidine Screen Urine Negative (Negative)
[2024-09-07 03:00] LABS: Alveolar/Arterial O2 Gradient 1.8 mmHg; Base Excess ABG -0.2 mEq/l (+/-2.0); Carboxyhemoglobin 4.6 % THb (0-2.0); Fractional Inspired Oxygen 21 %; HCO3 ABG 23.8 mEq/l (22.0-26.0); Methemoglobin ABG 0.2 %THb (0-1.5); Oxygen Content ABG 16.6 %vol (16.0-22.0); Oxygen Saturation ABG 97.9 % (95.0-100.0); PCO2 ABG 36.7 mmHg (35.0-45.0); PO2 FiO2 Ratio Arterial Blood 4.95 %; Reduced Hemoglobin 2.2 %THb (0-5.0); Total Hemoglobin 12.6 g/dL (12.0-18.0); pH ABG 7.429 (7.350-7.450)
[2024-09-07 03:01] LABS: Device ROOM AIR; Site Drawn RIGHT BRACHIAL
[2024-09-07 03:05] LABS: Troponin I < 0.012 ng/mL (0.000-0.034)
[2024-09-07 03:12] LABS: Influenza A QL RT-PCR Negative (Negative); Influenza B QL RT-PCR Negative (Negative); RSV RNA, RT-PCR Negative (Negative); SARS-CoV-2 RNA PCR Negative (Negative)
[2024-09-07 03:18] LABS: Lactic Acid Reflex 1.1 mmol/L (0.7-2.0)
--- NOTE | 2024-09-07 03:34 | PM.IMHP ---
H&P: HPI History of Present Illness Date/Time: 09/07/24 03:34 Chief Complaint: Intentional Overdose Narrative: 24-year-old female with a past medical history bipolar disorder, schizoaffective disorder and PTSD with prior suicide attempts who presented to the ER via EMS after suicide attempt with 5000 mg of Keppra, 500 mg of propranolol 500 mg of duloxetine. The patient states that her parents just left for [place] and that she was feeling lonely. She took the medications 10.5 hours prior to coming to the ER. She is she texted to suicide help hot line he then called the police department. Patient does have a history of prior suicide attempt by strangulation last year. Patient had already started having some abdominal discomfort by the time she came to the ER. Bedtime of my evaluation patient was feeling nauseous and lightheaded. The patient's blood pressures had been stable initially in the ER with blood pressures between 100 systolic and 125 systolic. At the time my evaluation the patient had just had a blood pressure of 97/76. While I was at bedside the patient received her initial bolus glucagon 5 mg at which time she began having vomiting. Her blood pressure at the beginning of glucagon administration was 102/64. She did have good improvement in a heart rate with heart rates up to the ED. Review of Systems Review of Systems: Review of systems was limited as patient was actively vomiting at the time of the my evaluation. [facility] Past Medical History Medical History (Updated 09/07/24 @ 04:07 by Sherice King DO) Vitamin D deficiency Chronic pain Suicide attempt Schizotypal disorder Bipolar disorder Asthma Missed PTSD (post-traumatic stress disorder) Generalized anxiety disorder with panic attacks Major depressive disorder Surgical History Surgical History H/O dilation and curettage Family History Family History Father Heart disease Mother Alcohol abuse Anxiety Depression Bipolar 1 disorder Epilepsy Grandparent Diabetes mellitus Alcohol abuse Anxiety Depression Heart disease Hypertension Social History Social History (Updated 09/07/24 @ 05:17 by Sherice King DO) Social History: Caffeine-Coffee/tea/soda 3 cups daily Smoking packs per day: 0.25 Smoking cigarettes per day: 5.0 Years smoked: 2 Smoking pack-years: 0.50 Smoking status: Current every day smoker Tobacco type: cigarettes Alcohol intake: current Drinks per week: 1 Alcohol use details: She drinks couple of alcoholic beverages a month. Substance use: never Substance use type: does not use Do You Feel Safe in your Home?: Yes Lack of Transportation: No Lack of Food: Never True Current Housing: I Have Housing Concerned About Future Housing: No Difficulty Paying Gas/Electric Bills: No Difficulty Paying for Meds: No Currently Unemployed: No Education: High School Diploma/GED Difficulty w/ Childcare or Family Care: No Living arrangements: with family Spiritual care concerns: No Agree to blood products: Yes Meds Home Medications and Allergies Home Medications ?Medication ?Instructions ?Recorded ?Confirmed ?Type gabapentin 600 mg tablet 600 mg PO TID 04/15/23 09/07/24 History duloxetine 60 mg capsule,delayed 60 mg PO QAM #90 caps 10/21/23 09/07/24 Rx release (Cymbalta) propranolol 20 mg tablet 20 mg PO QID 06/01/24 09/07/24 History duloxetine 30 mg capsule,delayed 30 mg PO QHS #90 caps 08/24/24 09/07/24 Rx release (Cymbalta) levetiracetam 500 mg tablet 500 mg PO BID #60 tabs 09/03/24 09/07/24 Rx (Keppra) Allergies Allergy/AdvReac Type Severity Reaction Status Date / Time Penicillins Allergy Unknown Swelling Verified 09/07/24 05:41 of Lip/Tongue/Throat aripiprazole (From Abilify) AdvReac Severe Other Verified 09/07/24 05:41 Vital Signs Vital Signs - 24 hr 09/07/24 02:04 09/07/24 02:04 09/07/24 02:04 Temperature 97.5 F L Pulse Rate 69 68 Respiratory Rate 17 17 Blood Pressure 106/61 Pulse Oximetry 99 Oxygen Delivery Room Air 09/07/24 02:04 09/07/24 03:18 Temperature Pulse Rate 57 L Respiratory Rate 18 Blood Pressure 111/76 Pulse Oximetry 98 98 Oxygen Delivery Room Air Exam Narrative: Weight 72.7 kg BMI 24.4 Const: Other: No acute distress, well-developed well-nourished, appears stated age HENMT: Other: Mucous membranes are moist, no oral pharyngeal erythema, head is normocephalic atraumatic Eyes: Other: Pupils are equal and reactive, positive conjunctival pallor, no scleral icterus Neck: Other: No JVD, no lymphadenopathy Resp: Other: Clear to auscultation bilaterally, no increased work of breathing Cardio: Other: Initially sinus bradycardia with any increased rate to normal sinus rhythm with medication administration, no murmur, 2+ bilateral radial pulses, 1+ bilateral pedal pulses GI: Other: soft, normoactive bowel sounds Skin: Other: Mild pallor, non jaundice Neuro: Other: Alert oriented, speech is clear, no facial asymmetry, no localizing neurologic deficits noted during conversation Extrem: Other: No clubbing, cyanosis or edema, moves all extremities equally Psych: Other: Depressed mood, alert, cooperative, pleasant, poor judgment and insight H&P: Results Labs Labs: Laboratory Tests 09/07/24 02:25 09/07/24 02:25 09/07/24 09/07/24 09/07/24 02: 02:27 02:29 WBC 7.0 RBC 4.10 L Hgb 11.7 L Hct 35.0 L MCV 85.4 MCH 28.5 MCHC 33.4 RDW 13.3 Plt Count 279 MPV 9.8 Immature Gran % (Auto) 0.1 Neut % (Auto) 51.6 Lymph % (Auto) 38.4 [place] % (Auto) 7.2 Eos % (Auto) 2.1 Baso % (Auto) 0.6 Lymph # (Auto) 2.68 [place] # (Auto) 0.5 Eos # (Auto) 0.2 Baso # (Auto) 0.0 Abs Immat Gran (auto) 0.01 Absolute Neuts (auto) 3.6 Absolute Nucleated RBC 0.000 Nucleated RBC % 0.0 Puncture Site ABG pH ABG pCO2 ABG pO2 ABG PO2/FiO2 Ratio ABG HCO3 ABG O2 Saturation ABG O2 Content ABG Base Excess A-a Gradient Oxyhemoglobin Carboxyhemoglobin Methemoglobin Reduced Hemoglobin Total Hemoglobin O2 Delivery Device O2 Liters/Min FiO2 Sodium 138 Potassium 3.7 Chloride 105 Carbon Dioxide 22 Anion Gap 11 BUN 10 Creatinine 0.61 L Estim Creat Clear Calc 124 Estimated GFR > 60 Glucose 129 H Lactic Acid Calcium 8.9 Magnesium 1.9 Total Bilirubin 1.5 H AST 18 ALT 12 Alkaline Phosphatase 80 Troponin I < 0.012 Total Protein 7.0 Albumin 4.1 TSH 2.330 Urine Color Yellow Urine Appearance Clear Urine pH 5.5 Ur Specific [place] 1.007 Urine Protein Negative Urine Glucose (UA) Negative Urine Ketones Negative Ur Blood (Man) Negative Urine Nitrate Negative Urine Bilirubin Negative Urine Urobilinogen 0.2 Leukocyte Esterase Rfl Trace H Urine RBC 0-2 Urine WBC 0-5 Ur Squamous Epith Cells None seen Urine Bacteria None seen Urine Casts 0-2 POC Urine HCG, Qual Negative Salicylates < 1.0 L Urine Opiates Screen Negative Urine Methadone Screen Negative Acetaminophen < 10 L Ur Barbiturates Screen Negative Levetiracetam Pending Ur Phencyclidine Scrn Negative Ur Amphetamine Screen Negative U Benzodiazepines Scrn Negative Urine Cocaine Screen Negative U Cannabinoids Screen Negative Ethyl Alcohol < 10 Influenza A (RT-PCR) Negative Influenza B (RT-PCR) Negative RSV (RT-PCR) Negative SARS-CoV-2 RNA (RT-PCR) Negative 09/07/24 02:45 WBC RBC Hgb Hct MCV MCH MCHC RDW Plt Count MPV Immature Gran % (Auto) Neut % (Auto) Lymph % (Auto) [place] % (Auto) Eos % (Auto) Baso % (Auto) Lymph # (Auto) [place] # (Auto) Eos # (Auto) Baso # (Auto) Abs Immat Gran (auto) Absolute Neuts (auto) Absolute Nucleated RBC Nucleated RBC % Puncture Site Right brachial ABG pH 7.429 ABG pCO2 36.7 ABG pO2 104.0 H ABG PO2/FiO2 Ratio 4.95 ABG HCO3 23.8 ABG O2 Saturation 97.9 ABG O2 Content 16.6 ABG Base Excess -0.2 A-a Gradient 1.8 Oxyhemoglobin 93.0 Carboxyhemoglobin 4.6 H Methemoglobin 0.2 Reduced Hemoglobin 2.2 Total Hemoglobin 12.6 O2 Delivery Device Room air O2 Liters/Min 0.0 FiO2 21 Sodium Potassium Chloride Carbon Dioxide Anion Gap BUN Creatinine Estim Creat Clear Calc Estimated GFR Glucose Lactic Acid 1.1 Calcium Magnesium Total Bilirubin AST ALT Alkaline Phosphatase Troponin I Cancelled Total Protein Albumin TSH Urine Color Urine Appearance Urine pH Ur Specific [place] Urine Protein Urine Glucose (UA) Urine Ketones Ur Blood (Man) Urine Nitrate Urine Bilirubin Urine Urobilinogen Leukocyte Esterase Rfl Urine RBC Urine WBC Ur Squamous Epith Cells Urine Bacteria Urine Casts POC Urine HCG, Qual Salicylates Urine Opiates Screen Urine Methadone Screen Acetaminophen Ur Barbiturates Screen Levetiracetam Ur Phencyclidine Scrn Ur Amphetamine Screen U Benzodiazepines Scrn Urine Cocaine Screen U Cannabinoids Screen Ethyl Alcohol Influenza A (RT-PCR) Influenza B (RT-PCR) RSV (RT-PCR) SARS-CoV-2 RNA (RT-PCR) EKG: Personally reviewed and interpreted. Sinus bradycardia 55 QTC 417 cardiology interpretation pending Assessment and Plan Assessment and plan (1) Suicide attempt by beta romaine overdose: Qualifiers: Encounter type: initial encounter Qualified Code(s): T44.7X2A - Poisoning by beta-adrenoreceptor antagonists, intentional self-harm, initial encounter Code(s): T44.7X2A - Poisoning by beta-adrenoreceptor antagonists, intentional self-harm, initial encounter Status: Acute (2) Polysubstance overdose: Qualifiers: Encounter type: initial encounter Injury intent: intentional self-harm Qualified Code(s): T50.902A - Poisoning by unspecified drugs, medicaments and biological substances, intentional self-harm, initial encounter Code(s): T50.901A - Poisoning by unspecified drugs, medicaments and biological substances, accidental (unintentional), initial encounter Status: Acute (3) Suicide attempt: Code(s): T14.91XA - Suicide attempt, initial encounter Status: Acute Plan The patient presented with plica is overdose with Keppra propranolol and duloxetine. Currently patient is having symptomatic bradycardia with hypotension. She has been given a dose of bolus of glucagon and was started on glucagon infusion. Patient be admitted to the ICU. [place] Machine Operator will be consulted. Will monitor serial EKGs to evaluate patient's heart rate and intervals. Will continue maintenance of IV fluids patient did receive 2 L of isotonic fluid bolus. Will provide antiemetic therapy but try to minimize the amount of QT prolonging agents given. Patient will be placed in the ICU with the safety engineer pressure vessels at bedside. Suicide precautions in place. Will monitor his serial EKGs and close monitoring of glucose. Will monitor neuro status closely S patient is at high risk of seizure with beta-romaine overdose. Patient's blood pressures did drop her to to arriving to the ICU. Patient was subsequently given a glucagon bolus and placed on a glucagon infusion. 40 minute spent in critical care activities. Due to a high probability of clinically significant, life threatening deterioration, the patient required my highest level of preparedness to intervene emergently and I personally spent this critical care time directly and personally managing the patient. This critical care time included obtaining a history; examining the patient; pulse oximetry; ordering and review of studies; arranging urgent treatment with development of a management plan; evaluation of patient's response to treatment; frequent reassessment; and discussions with other providers. It was exclusive of separately billable procedures and treating other patients and teaching time. Please see Assessment and Plan section and the rest of the note for further information on patient assessment and treatment. Quality VTE Prophylaxis VTE prophylaxis: pharmacologic ordered (Lovenox 40 mg subQ daily.) Hospitalist [facility] Advance Care Plan I have confirmed that the patient's Advanced Care Plan is present, code status is documented, or surrogate decision maker is listed in patient medical record.: Yes Medication Reconciliation I have utilized all available resources to obtain, update and review the patients current medications (includes all prescriptions, OTC, herbals, cannabis, and nutritional supplements).: Yes
--- NOTE | 2024-09-07 04:00 | ECG_ITS ---
Test Date: 2024-09-07 04:11:24 Measurements Intervals [place] Rate: 55 P: 32 [place]: 179 QRS: 76 QRSD: 94 T: 58 QT: 433 QTc: 417 Interpretive Statements SINUS BRADYCARDIA Compared to ECG 09/07/2024 02:10:25 NO SIGNIFICANT CHANGES Electronically Signed On 09-08-2024 16:34:58 CDT by Ayan Tavares M.D.
[2024-09-07 04:17] LABS: Glucose Point of Care 137 mg/dl (65-105)
--- NOTE | 2024-09-07 04:31 | PC.NURSE ---
This RN spoke with Emelyn from poison control at 0427 and gave report/updates on pt.
[2024-09-07] MEDS: GLUCAGON FOR INJ 1 MG VIAL 5 MG IV PUSH (04:53)
[2024-09-07] MEDS: PROMETHAZINE HCL 25 MG/ML AMPUL IM (05:11)
[2024-09-07] MEDS: SODIUM CHLORIDE 0.9% IV 1,000 ML 100 ML IV CONT (05:11)
--- NOTE | 2024-09-07 05:28 | ADMGEN ---
This patient, Lizzie Rosales, was admitted to Intensive Care Unit-4 at 0517. Patient/family oriented to hospital policies and general routines including ID bracelet, bed and alarms, visiting hours, pain management, procedures, bathroom and other care routines, personal items, smoking policy, room service/diet, and visiting hours. Information on how to activate the Rapid Response Team has been discussed. Patient/Family are encouraged to report perceived risks to care and to ask questions if they do not understand what they are told or what they should do.
--- NOTE | 2024-09-07 06:00 | ECG_ITS ---
Test Date: 2024-09-07 06:35:29 Measurements Intervals [place] Rate: 66 P: 45 [place]: 188 QRS: 75 QRSD: 92 T: 60 QT: 402 QTc: 422 Interpretive Statements SINUS RHYTHM Compared to ECG 09/07/2024 04:11:24 Sinus bradycardia no longer present Electronically Signed On 09-08-2024 16:35:07 CDT by Ayan Tavares M.D.
[2024-09-07] MEDS: GLUCAGON FOR INJ 10 MG in DEXTROSE 5% 100 ML 30 MG IV CONT (06:30)
[2024-09-07 06:40] LABS: Glucose Point of Care 77 mg/dl (65-105)
[2024-09-07 07:08] LABS: MRSA (PCR) NOT DETECTED (NOT DETECTE)
[2024-09-07 08:27] LABS: Alanine Aminotransferase 13 U/L (6-35); Albumin Level 3.4 g/dL (3.5-5.1); Alkaline Phosphatase 79 U/L (38-126); Anion Gap 10 mmol/L (4-12); Aspartate Amino Transferase 18 U/L (14-36); Bilirubin,Total 1.1 mg/dL (0.2-1.3); Blood Urea Nitrogen 7 mg/dL (7-17); Calcium 7.8 mg/dL (8.4-10.2); Carbon Dioxide 21 mmol/L (22-30); Chloride 111 mmol/L (98-107); Estimated CRCL calculation 130 ml/min; Estimated Glomerular Filt Rate > 60; Glucose 108 mg/dL (65-110); Magnesium 1.6 mg/dL (1.6-2.3); Potassium 3.4 mmol/L (3.4-5.0); Sodium 142 mmol/L (137-145)
--- NOTE | 2024-09-07 08:42 | PC.NURSE ---
Spoke with Irwin at Poison Control. Updates provided on latest labs, vitals, and assessment. Poison control will check in later in the shift. Patient is currently within the 12 hour observation period. Per Irwin, accuchecks may be spaced further apart than the current q2hr (even discontinued) and q6h EKGs may be d/c'd after the next one at 1200 if no changes observed.
--- NOTE | 2024-09-07 08:59 | P.CONIN_ITS ---
Assessment and Plan Assessment and plan (1) Anxiety and depression: Code(s): F41.9 - Anxiety disorder, unspecified; F32.A - Depression, unspecified Status: Acute (2) Suicide attempt: Code(s): T14.91XA - Suicide attempt, initial encounter Status: Acute (3) Drug overdose, intentional: Code(s): T50.902A - Poisoning by unspecified drugs, medicaments and biological substances, intentional self-harm, initial encounter Status: Acute Assessment and Plan: Patient presented with overdose of Keppra 5 g, 500 mg propranolol in 5 mg duloxetine Patient received activated charcoal in the ER Poison control was notified Clinically patient appears fairly asymptomatic is complains of nausea. Patient's exam is unremarkable EKG reviewed and shows sinus bradycardia which has improved now and heart rate is in 70s with adequate blood pressure Continue IV fluid Monitor EKG Continue to monitor closely in the ICU at this time for 24 hours Suicide precautions and one-to-one sitter Replace low potassium and magnesium. Other labs unremarkable (4) Seizure disorder: Code(s): G40.909 - Epilepsy, unspecified, not intractable, without status epilepticus Status: Acute Assessment and Plan: Patient is on Keppra. Will resume Keppra from tomorrow since patient did take overdose of Keppra yesterday Family Practice Physician Consult Note Consult date: 09/07/24 Reason for consult: Drug overdose HPI: Lizzie Rosales is a 24 year old female with a past medical history bipolar disorder, schizoaffective disorder, seizure disorder and PTSD with prior suicide attempts who presented to the ER via EMS after suicide attempt with 5000 mg of Keppra, 500 mg of propranolol 500 mg of duloxetine. All these are her prescription medications. The patient s reported to the admitting physician that her parents just left for [place] and that she was feeling lonely. She does not report any altercation with any friend or any other precipitating factor. She took the medications last night but is not clear about the timing. She told the admitting physician that she took medications 10 hours before but to me she mentioned some time past midnight.. She all texted to suicide help hot line he then called the police department. Patient does have a history of prior suicide attempt by strangulation last year. Patient report having some abdominal discomfort by the time she came to the ER. She also reported some nausea but was able to take activated charcoal. Patient was given 1 dose of glucagon. Control was notified. Patient was admitted to ICU for closer monitoring. This morning patient states she feels much better and denies any new complaints. She still has some nausea but denies any vomiting. She states she is willing to eat food. Patient denies fever, chest pain, shortness of breath, cough, nausea vomiting, abdominal pain,, diarrhea, headache or constipation. All other systems were reviewed and were negative. Telemetry shows sinus rhythm with heart rate in 70s and blood pressure 109/ 66. She is on room air Review of Systems 2 Review of Systems: All systems reviewed & are unremarkable except as noted in HPI and below (HPI) PMFSH Past Medical History Medical History Vitamin D deficiency Chronic pain Suicide attempt Schizotypal disorder Bipolar disorder Asthma Missed PTSD (post-traumatic stress disorder) Generalized anxiety disorder with panic attacks Major depressive disorder Surgical History Surgical History H/O dilation and curettage Family History Family History Father Heart disease Mother Alcohol abuse Anxiety Depression Bipolar 1 disorder Epilepsy Grandparent Diabetes mellitus Alcohol abuse Anxiety Depression Heart disease Hypertension Social History Social History Social History: Caffeine-Coffee/tea/soda 3 cups daily Smoking packs per day: 0.25 Smoking cigarettes per day: 5.0 Years smoked: 2 Smoking pack-years: 0.50 Smoking status: Current every day smoker Tobacco type: cigarettes Alcohol intake: current Drinks per week: 1 Alcohol use details: She drinks couple of alcoholic beverages a month. Substance use: never Substance use type: does not use Do You Feel Safe in your Home?: Yes Lack of Transportation: No Lack of Food: Never True Current Housing: I Have Housing Concerned About Future Housing: No Difficulty Paying Gas/Electric Bills: No Difficulty Paying for Meds: No Currently Unemployed: No Education: High School Diploma/GED Difficulty w/ Childcare or Family Care: No Living arrangements: with family Spiritual care concerns: No Agree to blood products: Yes Meds Home Medications and Allergies Home Medications ?Medication ?Instructions ?Recorded ?Confirmed ?Type gabapentin 600 mg tablet 600 mg PO TID 04/15/23 09/07/24 History duloxetine 60 mg capsule,delayed 60 mg PO QAM #90 caps 10/21/23 09/07/24 Rx release (Cymbalta) propranolol 20 mg tablet 20 mg PO QID 06/01/24 09/07/24 History duloxetine 30 mg capsule,delayed 30 mg PO QHS #90 caps 08/24/24 09/07/24 Rx release (Cymbalta) levetiracetam 500 mg tablet 500 mg PO BID #60 tabs 09/03/24 09/07/24 Rx (Keppra) Allergies Allergy/AdvReac Type Severity Reaction Status Date / Time Penicillins Allergy Unknown Swelling Verified 09/07/24 05:41 of Lip/Tongue/Throat aripiprazole (From Abilify) AdvReac Severe Other Verified 09/07/24 05:41 Vital Signs Vital Signs - 24 hr 09/07/24 02:04 09/07/24 02:04 09/07/24 02:04 Temperature 36.4 C L Pulse Rate 69 68 Respiratory Rate 17 17 Blood Pressure 106/61 Pulse Oximetry 99 Oxygen Delivery Room Air 09/07/24 02:04 09/07/24 03:18 09/07/24 04:19 Temperature Pulse Rate 57 L 66 Respiratory Rate 18 21 H Blood Pressure 111/76 97/76 L Pulse Oximetry 98 98 100 Oxygen Delivery Room Air 09/07/24 04:38 09/07/24 05:21 09/07/24 06:00 Temperature Pulse Rate 59 L 74 74 Respiratory Rate 18 21 H Blood Pressure 102/64 Pulse Oximetry 100 100 Oxygen Delivery Room Air 09/07/24 06:00 Temperature Pulse Rate 74 Respiratory Rate 21 H Blood Pressure 97/61 L Pulse Oximetry 100 Oxygen Delivery Exam 2 Narrative: General: Pt is alert awake and in NAD Lungs/Chest: Trachea central Clear BS B/L, No crackles or wheezing. Cardiac: RRR. Normal S1 S2. No murmurs Circulation: Pedal pulses are intact and symmetrical. Abdomen: Normal bowel sounds.. Soft. NT. ND. Extremities: No clubbing, cyanosis or edema. Warm : Sharma in place Neurologic: Follows commands. Moves all 4 extremities PERRL Skin: No Rash Psychiatry: Normal speech and affect at this time Results Labs 09/07/24 02:25 09/07/24 08:04 Labs: Short CBC 09/07/24 Range/Units 02:25 WBC 7.0 (4.5-10.0) K/mm3 Hgb 11.7 L (12.0-15.0) g/dL Hct 35.0 L (37.0-47.0) % Plt Count 279 (150-375) k/mm3 BMP 09/07/24 09/07/24 02:25 08:04 Sodium 138 142 Potassium 3.7 3.4 Chloride 105 111 H Carbon Dioxide 22 21 L BUN 10 7 Creatinine 0.61 L 0.58 L Glucose 129 H 108 Calcium 8.9 7.8 L Cardiac Enzymes 09/07/24 09/07/24 Range/Units 02: 02:45 Troponin I < 0.012 Cancelled (0.000-0.034) ng/mL Liver Function 09/07/24 09/07/24 Range/Units 02:25 08:04 Total Bilirubin 1.5 H 1.1 (0.2-1.3) mg/dL AST 18 18 (14-36) U/L ALT 12 13 (6-35) U/L Alkaline Phosphatase 80 79 (38-126) U/L Albumin 4.1 3.4 L (3.5-5.1) g/dL Urine 09/07/24 Range/Units 02:25 Urine Color Yellow (Yellow) Urine Appearance Clear (Clear) Urine pH 5.5 (5.0-9.0) Ur Specific [place] 1.007 (1.001-1.035) Urine Protein Negative (Negative) mg/dL Urine Glucose (UA) Negative (Negative) mg/dL
[2024-09-07] MEDS: MAGNESIUM SULF 2 GM/WATER 50ML 2 GM/50 ML BAG IVPB (09:25)
[2024-09-07] MEDS: POTASSIUM BICARBONATE 25 MEQ TABEF 50 MEQ PO (09:25)
[2024-09-07] MEDS: KCL 20 MEQ/D5/0.45% SOD CHL 1,000 ML 75 ML IV CONT (09:26)
[2024-09-07] MEDS: ENOXAPARIN 40 MG/0.4 ML SYRINGE SUB-Q (09:26)
--- NOTE | 2024-09-07 10:51 | PM.IMPN ---
Progress Note: A&P Assessment and Plan (1) Anxiety and depression: Code(s): F41.9 - Anxiety disorder, unspecified; F32.A - Depression, unspecified Status: Acute (2) Suicide attempt: Code(s): T14.91XA - Suicide attempt, initial encounter Status: Acute (3) Drug overdose, intentional: Code(s): T50.902A - Poisoning by unspecified drugs, medicaments and biological substances, intentional self-harm, initial encounter Status: Acute (4) Seizure disorder: Code(s): G40.909 - Epilepsy, unspecified, not intractable, without status epilepticus Status: Acute Plan (1) Anxiety and depression: Code(s): F41.9 - Anxiety disorder, unspecified; F32.A - Depression, unspecified Status: Acute (2) Suicide attempt: Code(s): T14.91XA - Suicide attempt, initial encounter Status: Acute Patient cannot promise she will not commit suicide after discharge Will consult crisis care team when patient medically stable (3) Drug overdose, intentional: Code(s): T50.902A - Poisoning by unspecified drugs, medicaments and biological substances, intentional self-harm, initial encounter Status: Acute Assessment and Plan: Patient presented with overdose of Keppra 5 g, 500 mg propranolol in 5 mg duloxetine Patient received activated charcoal in the ER Poison control was notified Patient was found have sinus bradycardia upon arrival, Chronic patient has normal sinus rhythm, heart rate is above 60 Continue IV fluid, telemetry monitoring Suicide precautions and one-to-one sitter Hypokalemia and hypomagnesemia Replace low potassium and magnesium. Follow-up [facility] (4) Seizure disorder: Code(s): G40.909 - Epilepsy, unspecified, not intractable, without status epilepticus Status: Acute Assessment and Plan: Patient is on Keppra. Subjective Date/time seen: 09/07/24 10:51 Interval history: Saw examined the patient ICU, patient still has suicidal ideation. Patient cannot promise she will not commit suicide after discharge. Patient still has some epigastric discomfort, feeling nauseous intermittently. Patient denies nausea vomiting. Telemetry shows sinus rhythm, Exam Narrative: GENERAL: Lethargic, in no acute distress. Well-nourished. - EYES: EOMI. Anicteric. - HENT: Moist mucous membranes. - LUNGS: Clear to auscultation bilaterally, no wheezing, rhonchi, or rales. - CARDIOVASCULAR: Regular rate and rhythm. No murmur. No JVD. - ABDOMEN: Soft, non-tender and non-distended. No palpable masses. - EXTREMITIES: No edema. Peripheral pulses 2+. Non-tender. - NEUROLOGIC: No focal neurological deficits. CN II-XII grossly intact. - PSYCHIATRIC: Awake, Alert and oriented x 3. Depressive mood and affect. - SKIN: No rashes or lesions. Warm. - LYMPH: No cervical lymphadenopathy. Objective Data Vital Signs Vital Signs: Vital Signs - 24 hr 09/07/24 02:04 09/07/24 02:04 09/07/24 02:04 Temperature 97.5 F L Pulse Rate 69 68 Respiratory Rate 17 17 Blood Pressure 106/61 Pulse Oximetry 99 Oxygen Delivery Room Air Fraction of Inspired Oxygen 09/07/24 02:04 09/07/24 03:18 09/07/24 04:19 Temperature Pulse Rate 57 L 66 Respiratory Rate 18 21 H Blood Pressure 111/76 97/76 L Pulse Oximetry 98 98 100 Oxygen Delivery Room Air Fraction of Inspired Oxygen 09/07/24 04:38 09/07/24 05:21 09/07/24 06:00 Temperature Pulse Rate 59 L 74 74 Respiratory Rate 18 21 H Blood Pressure 102/64 Pulse Oximetry 100 100 Oxygen Delivery Room Air Fraction of Inspired Oxygen 09/07/24 06:00 09/07/24 09:41 Temperature Pulse Rate 74 Respiratory Rate 21 H Blood Pressure 97/61 L Pulse Oximetry 100 100 Oxygen Delivery Room Air Fraction of Inspired Oxygen 21 Intake/Output Intake/Output: Intake & Output 09/04/24 09/05/24 09/06/24 09/07/24 23:59 23:59 23:59 23:59 Intake Total 1999 Balance 1999 Meds/Results Medications: Active Medications Generic Name Dose Route Start Last Admin Trade Name Freq PRN Reason Stop Dose Admin Dextrose 12.5 gm 09/07/24 04:03 Dextrose 50% 25 Gm/50 Ml Syringe IV PUSH PRN PRN Hypoglycemia Protocol Enoxaparin Sodium 40 mg 09/07/24 09:00 09/07/24 09:26 Enoxaparin 40 Mg/0.4 Ml Syringe SUB-Q 40 mg DAILY LEXUS Administration Glucagon 1 mg 09/07/24 04:03 Glucagon For Inj 1 Mg Vial IM PRN PRN Hypoglycemia Protocol Glucose 15 gm 09/07/24 04:03 Glucose Oral Gel 15 Gm Of Glucse In 37.5 Gm Tube PO PRN PRN Hypoglycemia Protocol Dextrose 1,000 mls @ 100 mls/hr 09/07/24 04:03 Dextrose 5% 1,000 Ml IVPB PRN PRN Hypoglycemia Protocol Potassium Chloride/Dextrose/Sod Cl 1,000 mls @ 75 mls/hr 09/07/24 09:10 09/07/24 09:26 Kcl 20 Meq/D5/0.45% Sod Chl IV CONT 09/08/24 09:09 75 mls/hr .[id number] LEXUS Administration Promethazine HCl 25 mg 09/07/24 04:59 Promethazine Hcl 25 Mg/Ml Ampul IM Q4H PRN Nausea And Vomiting Labs Labs: Laboratory Results - last 24 hr 09/07/24 09/07/24 09/07/24 02:25 02:29 02:45 WBC 7.0 RBC 4.10 L Hgb 11.7 L Hct 35.0 L MCV 85.4 MCH 28.5 MCHC 33.4 RDW 13.3 Plt Count 279 MPV 9.8 Immature Gran % (Auto) 0.1 Neut % (Auto) 51.6 Lymph % (Auto) 38.4 [place] % (Auto) 7.2 Eos % (Auto) 2.1 Baso % (Auto) 0.6 Lymph # (Auto) 2.68 [place] # (Auto) 0.5 Eos # (Auto) 0.2 Baso # (Auto) 0.0 Abs Immat Gran (auto) 0.01 Absolute Neuts (auto) 3.6 Absolute Nucleated RBC 0.000 Nucleated RBC % 0.0 Puncture Site Right brachial ABG pH 7.429 ABG pCO2 36.7 ABG pO2 104.0 H ABG PO2/FiO2 Ratio 4.95 ABG HCO3 23.8 ABG O2 Saturation 97.9 ABG O2 Content 16.6 ABG Base Excess -0.2 A-a Gradient 1.8 Oxyhemoglobin 93.0 Carboxyhemoglobin 4.6 H Methemoglobin 0.2 Reduced Hemoglobin 2.2 Total Hemoglobin 12.6 O2 Delivery Device Room air O2 Liters/Min 0.0 FiO2 21 Sodium 138 Potassium 3.7 Chloride 105 Carbon Dioxide 22 Anion Gap 11 BUN 10 Creatinine 0.61 L Estim Creat Clear Calc 124 Estimated GFR > 60 Glucose 129 H POC Capillary Glucose Lactic Acid 1.1 Calcium 8.9 Magnesium 1.9 Total Bilirubin 1.5 H AST 18 ALT 12 Alkaline Phosphatase 80 Troponin I < 0.012 Cancelled Total Protein 7.0 Albumin 4.1 TSH 2.330 Urine Color Yellow Urine Appearance Clear Urine pH 5.5 Ur Specific [place] 1.007 Urine Protein Negative Urine Glucose (UA) Negative Urine Ketones Negative Ur Blood (Man) Negative Urine Nitrate Negative Urine Bilirubin Negative Urine Urobilinogen 0.2 Leukocyte Esterase Rfl Trace H Urine RBC 0-2 Urine WBC 0-5 Ur Squamous Epith Cells None seen Urine Bacteria None seen Urine Casts 0-2 POC Urine HCG, Qual Negative Nasal MRSA (PCR) Salicylates < 1.0 L Urine Opiates Screen Negative Urine Methadone Screen Negative Acetaminophen < 10 L Ur Barbiturates Screen Negative Ur Phencyclidine Scrn Negative Ur Amphetamine Screen Negative U Benzodiazepines Scrn Negative Urine Cocaine Screen Negative U Cannabinoids Screen Negative Ethyl Alcohol < 10 Influenza A (RT-PCR) Negative Influenza B (RT-PCR) Negative RSV (RT-PCR) Negative SARS-CoV-2 RNA (RT-PCR) Negative 09/07/24 09/07/24 09/07/24 04:15 05:47 06:36 WBC RBC Hgb Hct MCV MCH MCHC RDW Plt Count MPV Immature Gran % (Auto) Neut % (Auto) Lymph % (Auto) [place]wood % (Auto) Eos % (Auto) Baso % (Auto) Lymph # (Auto) [place] # (Auto) Eos # (Auto) Baso # (Auto) Abs Immat Gran (auto) Absolute Neuts (auto) Absolute Nucleated RBC Nucleated RBC % Puncture Site ABG pH ABG pCO2 ABG pO2 ABG PO2/FiO2 Ratio ABG HCO3 ABG O2 Saturation ABG O2 Content ABG Base Excess A-a Gradient Oxyhemoglobin Carboxyhemoglobin Methemoglobin Reduced Hemoglobin Total Hemoglobin O2 Delivery Device O2 Liters/Min FiO2 Sodium Potassium Chloride Carbon Dioxide Anion Gap BUN Creatinine Estim Creat Clear Calc Estimated GFR Glucose POC Capillary Glucose 137 H 77 Lactic Acid Calcium Magnesium Total Bilirubin AST ALT Alkaline Phosphatase Troponin I Total Protein Albumin TSH Urine Color Urine Appearance Urine pH Ur Specific [place] Urine Protein Urine Glucose (UA) Urine Ketones Ur Blood (Man) Urine Nitrate Urine Bilirubin Urine Urobilinogen Leukocyte Esterase Rfl Urine RBC Urine WBC Ur Squamous Epith Cells Urine Bacteria Urine Casts POC Urine HCG, Qual Nasal MRSA (PCR) Not detected Salicylates Urine Opiates Screen Urine Methadone Screen Acetaminophen Ur Barbiturates Screen Ur Phencyclidine Scrn Ur Amphetamine Screen U Benzodiazepines Scrn Urine Cocaine Screen U Cannabinoids Screen Ethyl Alcohol Influenza A (RT-PCR) Influenza B (RT-PCR) RSV (RT-PCR) SARS-CoV-2 RNA (RT-PCR) 09/07/24 08:04 WBC RBC Hgb Hct MCV MCH MCHC RDW Plt Count MPV Immature Gran % (Auto) Neut % (Auto) Lymph % (Auto) [place] % (Auto) Eos % (Auto) Baso % (Auto) Lymph # (Auto) [place] # (Auto) Eos # (Auto) Baso # (Auto) Abs Immat Gran (auto) Absolute Neuts (auto) Absolute Nucleated RBC Nucleated RBC % Puncture Site ABG pH ABG pCO2 ABG pO2 ABG PO2/FiO2 Ratio ABG HCO3 ABG O2 Saturation ABG O2 Content ABG Base Excess A-a Gradient Oxyhemoglobin Carboxyhemoglobin Methemoglobin Reduced Hemoglobin Total Hemoglobin O2 Delivery Device O2 Liters/Min FiO2 Sodium 142 Potassium 3.4 Chloride 111 H Carbon Dioxide 21 L Anion Gap 10 BUN 7 Creatinine 0.58 L Estim Creat Clear Calc 130 Estimated GFR > 60 Glucose 108 POC Capillary Glucose Lactic Acid Calcium 7.8 L Magnesium 1.6 Total Bilirubin 1.1 AST 18 ALT 13 Alkaline Phosphatase 79 Troponin I Total Protein 6.0 L Albumin 3.4 L TSH Urine Color Urine Appearance Urine pH Ur Specific F[place]ardo Urine Protein Urine Glucose (UA) Urine Ketones Ur Blood (Man) Urine Nitrate Urine Bilirubin Urine Urobilinogen Leukocyte Esterase Rfl Urine RBC Urine WBC Ur Squamous Epith Cells Urine Bacteria Urine Casts POC Urine HCG, Qual Nasal MRSA (PCR) Salicylates Urine Opiates Screen Urine Methadone Screen Acetaminophen Ur Barbiturates Screen Ur Phencyclidine Scrn Ur Amphetamine Screen U Benzodiazepines Scrn Urine Cocaine Screen U Cannabinoids Screen Ethyl Alcohol Influenza A (RT-PCR) Influenza B (RT-PCR) RSV (RT-PCR) SARS-CoV-2 RNA (RT-PCR)
--- NOTE | 2024-09-07 12:00 | ECG_ITS ---
Test Date: 2024-09-07 12:30:53 Measurements Intervals [place] Rate: 71 P: 34 NV: 175 QRS: 72 QRSD: 88 T: 57 QT: 395 QTc: 431 Interpretive Statements SINUS RHYTHM Compared to ECG 09/07/2024 06:35:29 No significant changes Electronically Signed On 09-08-2024 16:38:54 CDT by Ayan Tavares M.D.
[2024-09-07 12:39] LABS: Glucose Point of Care 99 mg/dl (65-105)
[2024-09-07 14:39] LABS: Anion Gap 7 mmol/L (4-12); Blood Urea Nitrogen 8 mg/dL (7-17); Calcium 8.1 mg/dL (8.4-10.2); Carbon Dioxide 24 mmol/L (22-30); Chloride 107 mmol/L (98-107); Estimated CRCL calculation 124 ml/min; Estimated Glomerular Filt Rate > 60; Glucose 97 mg/dL (65-110); Magnesium 2.5 mg/dL (1.6-2.3); Potassium 4.5 mmol/L (3.4-5.0); Sodium 138 mmol/L (137-145)
[2024-09-07 17:13] LABS: Glucose Point of Care 88 mg/dl (65-105)
[2024-09-07 21:01] LABS: Glucose Point of Care 83 mg/dl (65-105)
[2024-09-08] VITALS: BP 95/53; PULSE 60; PULSE 61; RESP 16; RESP 17; TEMP 36.6; O2SAT 97
[2024-09-08] MEDS: KCL 20 MEQ/D5/0.45% SOD CHL 1,000 ML 75 ML IV CONT (01:35)
[2024-09-08 01:41] LABS: Glucose Point of Care 112 mg/dl (65-105)
[2024-09-08 02:00] VITALS: PULSE 58
[2024-09-08 03:57] LABS: Hematocrit 32.7 % (37.0-47.0); Hemoglobin 10.5 g/dL (12.0-15.0); Mean Corpuscular HGB Conc 32.1 g/dl (32-36); Mean Corpuscular Hemoglobin 27.9 pg (26-34); Mean Platelet Volume 9.6 fl (7.4-10.4); Platelet Count Result 233 k/mm3 (150-375); Red Blood Count 3.76 M/mm3 (4.2-5.4); Red Cell Distribution Width 13.4 % (11.5-14.5); White Blood Count 5.1 K/mm3 (4.5-10.0)
[2024-09-08 04:00] VITALS: BP 94/51; PULSE 59; PULSE 61; RESP 16; TEMP 36.6; O2SAT 97; O2SAT 99
[2024-09-08 04:06] LABS: Alanine Aminotransferase 15 U/L (6-35); Albumin Level 3.4 g/dL (3.5-5.1); Alkaline Phosphatase 73 U/L (38-126); Anion Gap 6 mmol/L (4-12); Aspartate Amino Transferase 19 U/L (14-36); Bilirubin,Total 1.2 mg/dL (0.2-1.3); Blood Urea Nitrogen 7 mg/dL (7-17); Calcium 8.1 mg/dL (8.4-10.2); Carbon Dioxide 28 mmol/L (22-30); Chloride 106 mmol/L (98-107); Estimated CRCL calculation 113 ml/min; Estimated Glomerular Filt Rate > 60; Glucose 110 mg/dL (65-110); Magnesium 2.1 mg/dL (1.6-2.3); Potassium 4.3 mmol/L (3.4-5.0); Sodium 140 mmol/L (137-145)
[2024-09-08 06:00] VITALS: PULSE 61
[2024-09-08 08:00] VITALS: BP 88/51; PULSE 60; RESP 19; TEMP 36.8; O2SAT 98
[2024-09-08] MEDS: LACTATED RINGERS 1,000 ML 999 ML IV CONT (08:14)
[2024-09-08] MEDS: ENOXAPARIN 40 MG/0.4 ML SYRINGE SUB-Q (08:14)
--- NOTE | 2024-09-08 13:58 | PM.IMPN ---
Progress Note: A&P Assessment and Plan (1) Drug overdose, intentional: Code(s): T50.902A - Poisoning by unspecified drugs, medicaments and biological substances, intentional self-harm, initial encounter Status: Acute Assessment and Plan: Patient presented with overdose of Keppra 5000 mg, propranolol 500 mg, duloxetine 5 mg Patient received activated charcoal in the ER Poison control was notified Patient is medically cleared and stable -care coordination an crisis management have evaluated the patient, patient will have be placed in a psych facility involuntarily -off all IV fluids -Suicide precautions -bedside sitter in room (2) Anxiety and depression: Code(s): F41.9 - Anxiety disorder, unspecified; F32.A - Depression, unspecified Status: Acute Assessment and Plan: Will hold home meds for now (3) Suicide attempt: Code(s): T14.91XA - Suicide attempt, initial encounter Status: Acute Assessment and Plan: Patient is medically stable -care coordination and crisis management have evaluated the patient, patient will be involved in replaced in a psych unit (4) Seizure disorder: Code(s): G40.909 - Epilepsy, unspecified, not intractable, without status epilepticus Status: Acute Assessment and Plan: Patient is on Keppra. -will resume Keppra today Plan DVT prophylaxis: Lovenox Stress ulcer prophylaxis: Not indicated Nutrition: Regular diet, safe tray Code Status: Full code Due to a high probability of clinically significant, life threatening deterioration, the patient required my highest level of preparedness to intervene emergently and I personally spent this critical care time directly and personally managing the patient. This critical care time included obtaining a history; examining the patient; pulse oximetry; ordering and review of studies; arranging urgent treatment with development of a management plan; evaluation of patient's response to treatment; frequent reassessment; and discussions with other providers. It was exclusive of separately billable procedures and treating other patients and teaching time. Please see Assessment and Plan section and the rest of the note for further information on patient assessment and treatment This dictation may have been done utilizing a voice recognition system. Attempts have been made to correct errors. However, there may be uncorrected grammatical, spelling, and recognitions errors present. Subjective Date/time seen: 09/08/24 13:58 Interval history: Reason for consult: Suicide attempt with ingestion of multiple unspecified medications thought to be Keppra 5000 mg, propranolol 500 mg and duloxetine 5 mg. 09/08/2024 patient being seen for hospitalist group Patient is awake, alert, pleasant, in no acute distress. Denies any shortness of breath, chest pain, abdominal pain, nausea vomiting. Denies any suicidal ideation at this time Review of Systems Review of Systems: All systems reviewed & are unremarkable except as noted in HPI and below (HPI) Exam Narrative: General: Pt is alert awake and in NAD Lungs/Chest: Trachea central Clear BS B/L, No crackles or wheezing. Cardiac: RRR. Normal S1 S2. No murmurs Circulation: Pedal pulses are intact and symmetrical. Abdomen: Normal bowel sounds.. Soft. NT. ND. Extremities: No clubbing, cyanosis or edema. Warm : Sharma in place Neurologic: Follows commands. Moves all 4 extremities PERRL Skin: No Rash Psychiatry: Normal speech and affect at this time Objective Data Vital Signs Vital Signs: Vital Signs - 24 hr 09/07/24 14:00 09/07/24 14:00 09/07/24 16:00 Temperature 97.8 F Pulse Rate 63 63 61 Respiratory Rate 16 16 Blood Pressure 103/72 100/59 L Pulse Oximetry 98 97 Oxygen Delivery Fraction of Inspired Oxygen 09/07/24 16:00 09/07/24 16:00 09/07/24 20:00 Temperature Pulse Rate 61 61 61 Respiratory Rate 16 16 Blood Pressure Pulse Oximetry 97 97 Oxygen Delivery Room Air Room Air Fraction of Inspired Oxygen 21 09/07/24 20:00 09/07/24 20:00 09/07/24 22:00 Temperature 98 F Pulse Rate 60 60 62 Respiratory Rate 18 Blood Pressure 100/59 L Pulse Oximetry 98 Oxygen Delivery Fraction of Inspired Oxygen 09/08/24 00:00 09/08/24 00:00 09/08/24 00:00 Temperature 98 F Pulse Rate 61 60 60 Respiratory Rate 16 17 Blood Pressure 95/53 L Pulse Oximetry 97 97 Oxygen Delivery Room Air Fraction of Inspired Oxygen 09/08/24 02:00 09/08/24 04:00 09/08/24 04:00 Temperature 98 F Pulse Rate 58 L 61 59 L Respiratory Rate 16 16 Blood Pressure 94/51 L Pulse Oximetry 97 99 Oxygen Delivery Room Air Fraction of Inspired Oxygen 09/08/24 04:00 09/08/24 06:00 09/08/24 08:00 Temperature Pulse Rate 59 L 61 Respiratory Rate Blood Pressure Pulse Oximetry 98 Oxygen Delivery Room Air Fraction of Inspired Oxygen 09/08/24 08:00 Temperature 98.2 F Pulse Rate 60 Respiratory Rate 19 Blood Pressure 88/51 L Pulse Oximetry 98 Oxygen Delivery Fraction of Inspired Oxygen Intake/Output Intake/Output: Intake & Output 09/05/24 09/06/24 09/07/24 09/08/24 23:59 23:59 23:59 23:59 Intake Total 1999 1999 Output Total 1800 400 Balance 200 1600 Meds/Results Medications: Active Medications Generic Name Dose Route Start Last Admin Trade Name Freq PRN Reason Stop Dose Admin Dextrose 12.5 gm 09/07/24 04:03 Dextrose 50% 25 Gm/50 Ml Syringe IV PUSH PRN PRN Hypoglycemia Protocol Enoxaparin Sodium 40 mg 09/07/24 09:00 09/08/24 08:14 Enoxaparin 40 Mg/0.4 Ml Syringe SUB-Q 40 mg DAILY LEXUS Administration Glucagon 1 mg 09/07/24 04:03 Glucagon For Inj 1 Mg Vial IM PRN PRN Hypoglycemia Protocol Glucose 15 gm 09/07/24 04:03 Glucose Oral Gel 15 Gm Of Glucse In 37.5 Gm Tube PO PRN PRN Hypoglycemia Protocol Dextrose 1,000 mls @ 100 mls/hr 09/07/24 04:03 Dextrose 5% 1,000 Ml IVPB PRN PRN Hypoglycemia Protocol Promethazine HCl 25 mg 09/07/24 04:59 Promethazine Hcl 25 Mg/Ml Ampul IM Q4H PRN Nausea And Vomiting Labs Labs: Laboratory Results - last 24 hr 09/07/24 09/07/24 09/07/24 14:09 16:58 20:58 WBC RBC Hgb Hct MCV MCH MCHC RDW Plt Count MPV Sodium 138 Potassium 4.5 Chloride 107 Carbon Dioxide 24 Anion Gap 7 BUN 8 Creatinine 0.61 L Estim Creat Clear Calc 124 Estimated GFR > 60 Glucose 97 POC Capillary Glucose 88 83 Calcium 8.1 L Phosphorus 3.0 Magnesium 2.5 H Total Bilirubin AST ALT Alkaline Phosphatase Total Protein Albumin 09/08/24 09/08/24 01:36 03:35 WBC 5.1 RBC 3.76 L Hgb 10.5 L Hct 32.7 L MCV 87.0 MCH 27.9 MCHC 32.1 RDW 13.4 Plt Count 233 MPV 9.6 Sodium 140 Potassium 4.3 Chloride 106 Carbon Dioxide 28 Anion Gap 6 BUN 7 Creatinine 0.68 L Estim Creat Clear Calc 113 Estimated GFR > 60 Glucose 110 POC Capillary Glucose 112 H Calcium 8.1 L Phosphorus Magnesium 2.1 Total Bilirubin 1.2 AST 19 ALT 15 Alkaline Phosphatase 73 Total Protein 6.0 L Albumin 3.4 L Quality VTE Prophylaxis VTE prophylaxis: pharmacologic ordered (Lovenox 40 mg subQ daily.)
--- NOTE | 2024-09-08 16:01 | PM.DS ---
DS: Admitting Diagnosis Discharge Date 09/08/2024 Admitting Diagnosis Intentional overdose, suicide attempt/behavior DS: Discharge Diagnosis Discharge Diagnosis (1) Drug overdose, intentional: Code(s): T50.902A - Poisoning by unspecified drugs, medicaments and biological substances, intentional self-harm, initial encounter Status: Acute Assessment and Plan: Patient presented with overdose of Keppra 5000 mg, propranolol 500 mg, duloxetine 5 mg Patient received activated charcoal in the ER Poison control was notified Patient is medically cleared and stable -care coordination an crisis management have evaluated the patient, patient will have be placed in a psych facility involuntarily -off all IV fluids -Suicide precautions -bedside sitter in room (2) Anxiety and depression: Code(s): F41.9 - Anxiety disorder, unspecified; F32.A - Depression, unspecified Status: Acute Assessment and Plan: Will hold home meds for now (3) Suicide attempt: Code(s): T14.91XA - Suicide attempt, initial encounter Status: Acute Assessment and Plan: Patient is medically stable -care coordination and crisis management have evaluated the patient, patient will be involved in replaced in a psych unit (4) Seizure disorder: Code(s): G40.909 - Epilepsy, unspecified, not intractable, without status epilepticus Status: Acute Assessment and Plan: Patient is on Keppra. -will resume Keppra today Plan DVT prophylaxis: Lovenox Stress ulcer prophylaxis: Not indicated Nutrition: Regular diet, safe tray Code Status: Full code Due to a high probability of clinically significant, life threatening deterioration, the patient required my highest level of preparedness to intervene emergently and I personally spent this critical care time directly and personally managing the patient. This critical care time included obtaining a history; examining the patient; pulse oximetry; ordering and review of studies; arranging urgent treatment with development of a management plan; evaluation of patient's response to treatment; frequent reassessment; and discussions with other providers. It was exclusive of separately billable procedures and treating other patients and teaching time. Please see Assessment and Plan section and the rest of the note for further information on patient assessment and treatment This dictation may have been done utilizing a voice recognition system. Attempts have been made to correct errors. However, there may be uncorrected grammatical, spelling, and recognitions errors present. DS: Summary Hospital Course Reason for hospitalization: Intentional overdose, suicidal behavior/attempt Hospital Course: 24-year-old female with a past medical history bipolar disorder, schizoaffective disorder and PTSD with prior suicide attempts who presented to the ER via EMS after suicide attempt with 5000 mg of Keppra, 500 mg of propranolol 500 mg of duloxetine. The patient states that her parents just left for [place] and that she was feeling lonely. She took the medications 10.5 hours prior to coming to the ER. She is she texted to suicide help hot line he then called the police department. Patient does have a history of prior suicide attempt by strangulation last year. Patient had already started having some abdominal discomfort by the time she came to the ER. During the course of the stay. Patient received IV fluids. Poison Control was notified, recommended supportive care. Monitor EKGs, electrolytes, blood pressures and heart rate. On 09/08/2024: Patient is awake, alert, pleasant, in no acute distress. Denies any shortness of breath, chest pain, abdominal pain, nausea vomiting. Hemodynamically stable, urine output has been adequate, afebrile, adequate appetite. Care coordination and crisis management evaluate the patient and recommended voluntary placement in the psych unit. She has been accepted to [facility] in a be transferred today on 09/08/2024 Status at Discharge Cognitive/behavioral status at discharge: Depressed affect otherwise stable Functional status at discharge: independent ambulation Time Spent with Patient Time attestation: Total time spent providing and/or coordinating discharge services: Time spent: Less than 30 minutes Exam Narrative: General: Pt is alert awake and in NAD Lungs/Chest: Trachea central Clear BS B/L, No crackles or wheezing. Cardiac: RRR. Normal S1 S2. No murmurs Circulation: Pedal pulses are intact and symmetrical. Abdomen: Normal bowel sounds.. Soft. NT. ND. Extremities: No clubbing, cyanosis or edema. Warm : Sharma in place Neurologic: Follows commands. Moves all 4 extremities PERRL Skin: No Rash Psychiatry: Normal speech and affect at this time DS: Data Data Completed and Pending Labs on day of discharge: Labs from last 24 hours 09/08/24 09/08/24 09/07/24 03:35 01:36 20:58 WBC 5.1 RBC 3.76 L Hgb 10.5 L Hct 32.7 L MCV 87.0 MCH 27.9 MCHC 32.1 RDW 13.4 Plt Count 233 MPV 9.6 Sodium 140 Potassium 4.3 Chloride 106 Carbon Dioxide 28 Anion Gap 6 BUN 7 Creatinine 0.68 L Estim Creat Clear Calc 113 Estimated GFR > 60 Glucose 110 POC Capillary Glucose 112 H 83 Calcium 8.1 L Magnesium 2.1 Total Bilirubin 1.2 AST 19 ALT 15 Alkaline Phosphatase 73 Total Protein 6.0 L Albumin 3.4 L 09/07/24 16:58 WBC RBC Hgb Hct MCV MCH MCHC RDW Plt Count MPV Sodium Potassium Chloride Carbon Dioxide Anion Gap BUN Creatinine Estim Creat Clear Calc Estimated GFR Glucose POC Capillary Glucose 88 Calcium Magnesium Total Bilirubin AST ALT Alkaline Phosphatase Total Protein Albumin Discharge Plan Discharge Attending physician on discharge: Chacho Nuñez Consulting providers: Kenyon Pettit Discharging Clinician: Chacho Nuñez Anticipated Discharge Date/Time: 09/08/24 16:06 Patient Disposition: Inpatient Rehab Facility Activity: october shower Diet: as tolerated and regular Patient Instructions: Antibiotic Form, How to Stop Smoking (GEN) Patient Language: Greenlandic Stand Alone Forms: General Discharge Information Discharge Medications: Continued levetiracetam [Keppra] 500 mg tablet 500 mg PO BID Qty: 60 0RF Discontinued gabapentin 600 mg tablet 600 mg PO TID propranolol 20 mg tablet 20 mg PO QID Patient Comments: takes 4 times per day per patient duloxetine [Cymbalta] 60 mg capsule,delayed release(DR/EC) 60 mg PO QAM Qty: 90 0RF duloxetine [Cymbalta] 30 mg capsule,delayed release(DR/EC) 30 mg PO QHS Qty: 90 0RF Date of admission: 09/07/24 03:35 Primary Care Provider: Sydney Richards Admitting Provider: Sherice King Attending physician on admission: Sherice King Condition: Stable Quality VTE Prophylaxis VTE prophylaxis: pharmacologic ordered (Lovenox 40 mg subQ daily.)
--- NOTE | 2024-09-08 16:45 | PC.NURSE ---
This RN gave report to receiving RN at [facility]. Fco Pleitez MD was the accepting physician. [facility] transported pt to receiving facility.
== END 2024-09-08 16:53 | DRG 918 ==
LOC: ANHED 03:22 → ANHICU 04:48
PROVIDERS: Internal Medicine; Admitting Provider Internal Medicine; Emergency Provider Emergency Medicine; PCP Family Medicine; Visit Provider Internal Medicine
DX: T44.7X2A Poisoning by beta-adrenoreceptor antagonists, intentional self-harm, initial encounter (principal); T43.212A Poisoning by selective serotonin and norepinephrine reuptake inhibitors, intentional self-harm, initial encounter; T42.6X2A Poisoning by other antiepileptic and sedative-hypnotic drugs, intentional self-harm, initial encounter; J45.909 Unspecified asthma, uncomplicated; G89.29 Other chronic pain; G40.909 Epilepsy, unspecified, not intractable, without status epilepticus; F43.10 Post-traumatic stress disorder, unspecified; F21 Schizotypal disorder; F31.9 Bipolar disorder, unspecified; F41.0 Panic disorder [episodic paroxysmal anxiety]; F41.1 Generalized anxiety disorder; Z20.822 Contact with and (suspected) exposure to COVID-19
CPT/HCPCS: 36415; 36600; 80048; 80053; 80143; 80177; 80179; 80307; 81001; 81025; 82077; 82375; 82805; 82948; 83050; 83605; 83735; 84100; 84443; 84484; 85018; 85025; 85027; 87637; 87641; 93005; 96360; 99285; A9270; J1610; J1650; J2550; J3475; J3480; J7030; J7120

== ENCOUNTER 2025-04-10 23:48 | Emergency (ER) | payer OTHER, SELFPAY ==
--- NOTE | ~2025-04-10 | CT_ITS ---
CT HEAD NON-CONTRAST Clinical History: head injury, trauma Comparison: None Technique: Unenhanced axial images skull base to vertex Coronal, sagittal reformats CT images acquired with automatic exposure control for dose reduction DLP: 681 mGy-cm Findings: Sulci, ventricles: Unremarkable. No intracerebral hemorrhage. No evidence acute territorial infarct. No mass effect, midline shift. Bony calvarium intact. Visualized paranasal sinuses: Clear. Mastoid air cells: Clear. IMPRESSION: 1. No acute intracranial findings. Reviewed, dictated and finalized at location R.
--- NOTE | ~2025-04-10 | XR_ITS ---
Examination: XR chest 1V Clinical History: seizure Comparison: None Technique: Portable AP Findings: Heart size normal. Lungs clear. No acute bony abnormality. IMPRESSION: 1. No acute cardiopulmonary findings given portable technique. Reviewed, dictated and finalized at location R.
[2025-04-10 23:50] VITALS: BP 124/79; PULSE 70; RESP 16; TEMP 36.4
--- OUTSIDE RECORDS SUMMARY | 2025-04-10 23:51 | XMS_ITS | Patient Health Record ---
Author Organization [facility] As [employer] Address [address] [place] [address] Care Team Providers Care Cushion Spring Assembler Name Role Phone Sydney GALEANO DO Primary Care Provider Mauro Fay Unavailable [phone] Sandra Dyer Unavailable [phone] Clarke Spear Unavailable [phone] Allergies Allergen (clinical drug ingredient) Drug/Non Drug Allergy documented on EMR Reaction Allergy Type Onset Date Status Substance with penicillin structure and antibacterial mechanism of action (substance) Penicillins Unknown Drug Allergy Active Reason For Referral No Information Medications Medication SIG (Take, Route, Frequency, Duration) Notes Start Date End Date Status Dicyclomine HCl 20 MG Tablet Oral; Duration: 5 Days Activ e Gabapentin 600 MG Tablet 1 tablet Oral t hree times a day; Duration: 30 days Active Propranolol HCl 10 MG Tablet 1 tablet Orally Three times a day; Duration: 30 days As needed for anxiety Active DULoxetine HCl 30 MG Capsule Delayed Release Particles 1 capsule Oral Once a day; Duration: 30 days Active DULoxetine HCl 60 MG Capsule Delayed Release Sprinkle 1 capsule Oral Once a day; Duration: 30 days Active Famotidine 20 MG Tablet TAKE 1 TABLET BY MOUTH DAILY Oral; Duration: 30 Days Active Social History Tobacco Use: Social History Observation Description Date Details (start date - stop date) Current Smoker 02/27/2024 - NA Sex Assigned At : Social History Observation Description Sex Assigned At Female Social History Miscellaneous: Social Info Question Answer Notes Advance Care Planning Are you your own decision-maker Yes Do you have Power of Railcar Switcher for Health or [facility]? No Safety issues: Are there any firearms in the house? No Social History Social Info Question Answer Notes Household: Marital Status: Single Number of Adults in household: 3 Number of Children in Household: 2 Level of Education: Finished High School Drug/Alcohol: Social Info Question Answer Notes Drugs Have you used drugs other than those for medical reasons in the past 12 months? Yes Methamphetamine? No Crack? No LSD? No Ecstacy? No Prescription opiates? No Marijuana? Yes Ketamine? No PCP? No Is there a minor (18 years or younger) at risk at home? Yes Are you still using? Yes Do you want treatment? No AUDIT-C (Standard) Points 3 Interpretation Positive Did you have a drink contain ing alcohol in the past year? Yes How often did you have six or more drinks on one occasion in the past year? Less than monthly (1 point) How many drinks did you have on a typical day when you were drinking in the past year? 1 or 2 drinks (0 point) How often did you have a drink containing alcohol in the past year? Monthly or less (1 point) Tobacco Use: Social Info Question Answer Notes Tobacco Control (Standard) Tobacco use: Current smoker When did you start smoking? 02/27/2024 How often do you smoke cigarettes? Every day How many cigarettes a day do you smoke? 5 or less How soon after you wake up do you smoke your first cigarette? After 60 minutes Are you interested in quitting? Not ready to quit Additional Details Category Social Info Options Details Miscellaneous: Occupation: Unemployed Migrated Social History Migrated Social History Tobacco Years: Never smoker 07/30/2021 Problems Problem Type SNOMED Code ICD Code Onset Dates Problem Status W/U Status Risk Notes Problem Schizoaffective disorder, bipolar type (74653120) Schizoaffective disorder, bipolar type (F25.0) Active confirmed Problem Posttraumatic stress disorder (05341137) PTSD (post-traumatic stress disorder) (F43.10) Active confirmed Problem Current smoker (43005669) Current smoker (F17.200) Active confirmed Problem Essential hypertension (94827587) Hypertension, unspecified type (401.9) Active confirmed Problem Personality disorder (84664717) Personality disorder (F60.9) Active confirmed Vital Signs Heart Rate 115 /min 04/28/2024 Blood pressure diastolic 90 mm Hg 04/28/2024 Weight-kg 68.67 kg 04/28/2024 Blood pressure systolic 134 mm Hg 04/28/2024 Weight 151.4 lbs 04/28/2024 Encounters Encounter Location Date Provider Diagnosis [facility] [employer], [employer] [address] [place] [address] 04/28/2024 Clarke Viera PTSD (post-traumatic stress disorder) F43.10 ; Personality disorder F60.9 ; Current smoker F17.200 and Hypertension, unspecified type 401.9 [facility] [employer] [facility], [employer] [address] [place] [address] 05/04/2024 Sandra Gomez PTSD (post-traumatic stress disorder) F43.10 and Schizoaffective disorder, bipolar type F25.0 [facility] [employer], [employer] [place] [address] 05/11/2024 Sandra Gomez [facility] [employer] [facility], [employer] [facility] [address] [place] [address] 05/29/2024 Clarke Viera Assessments Encounter Date Diagnosis (ICD Code) Assessment Notes Treatment Notes Treatment Clinical Notes Section Notes 05/04/2024 Schizoaffective disorder, bipolar type (ICD-10 - F25.0) Preferred name: Ayanna Marital Status: Single Living Arrangement: parents Support System: friends Highest Level of Education: some college 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 Financial Concerns: yeah Did not elaborate [...] that it causes a lot of stress. Interests/Skills/ Hobbies: art, used to fence, attending concerts. Goal(s) for Therapy: I angel just want to yap. 1. Bipolar Disorder - Monitor the patient's mood fluctuations and symptoms during therapy sessions. - Provide psychoeducation on bipolar disorder and coping strategies. - Encourage the patient to maintain a regular sleep schedule. 2. 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 Financial Concerns: yeah Did not elaborate though noted stress from being unemployed History: [employer]. 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 Interests/Skills/ Hobbies: art, used to fence, attending concerts. Goal(s) for Therapy: I angel just want to yap. 1. Bipolar Disorder - Monitor the patient's mood fluctuations and symptoms during therapy sessions. - Provide psychoeducation on bipolar disorder and coping strategies. - Encourage the patient to maintain a regular sleep schedule. 2. Schizotypal Personality Disorder - Utilize cognitive-behavio ral therapy techniques to improve communication skills and [...] as therapy appointment with if possible. 04/28/2024 Current smoker (ICD-10 - F17.200) 1-916-Quit - Yes [place] Tobacco Quitline Call a Smoking Quitline The National [employer] [place]'s Smoking Quitline, (4-459-96O-QUIT) Smokefree.gov, which connects you with your State's Quitline, (9-311-EQABUDD) Veterans Smoking Quitline, (8-602-TJQZOWW) 1. Anxiety - Continue propranolol 10mg three [...] day as therapy appointment with if possible. Plan Of Treatment Pending Test Test Name Order Date Vitamin D, 1,25 Dihydroxy 03/08/2024 LIPID PANEL, STANDARD (7600) 03/08/2024 COMPREHENSIVE METABOLIC PANEL (90388) AST (822) 03/08/2024 ALT (823) 03/08/2024 CBC (H/H, RBC, INDICES, WBC, PLT) (1759) 03/08/2024 VITAMIN B12 (927) 03/08/2024 TSH W/REFLEX TO FT4 (68444) 03/08/2024 UDT 03/08/2024 Hemoglobin A1C 03/08/2024 Insurance Providers Payer Name Payer Address Payer Phone Subscriber Number Group Number Insured Name Patient Relationship to Insured Coverage Start Date Coverage End Date [employer] [address] [place] [address] [id number] [place] APARNANAND[place] Child - Insured has Financial Responsibility [...]
--- OUTSIDE RECORDS SUMMARY | 2025-04-10 23:51 | XMS_ITS | Clinical Summary ---
Author Organization [facility] Address [address] [place] [address] Care Team Providers Care Secy Name Role Phone Sydney Richards DO Primary Care Provider [phone] Allergies Active Allergy Reactions Criticality Noted Date [...] Comments Blood Pressure 108/70 05/14/2024 7:57 PM DIVERSITY MANAGER Pulse 74 05/14/2024 7:57 PM DIVERSITY MANAGER Temperature 36.8 C (98.2 F) 05/14/2024 7:57 PM DIVERSITY MANAGER Respiratory Rate 18 05/14/2024 7:57 PM DIVERSITY MANAGER Oxygen Saturation 98% 05/14/2024 7:57 PM DIVERSITY MANAGER Inhaled Oxygen Concentration - - Weight 68.5 kg (151 lb 0.2 oz) 05/14/2024 7:57 P M DIVERSITY MANAGER Height 172.7 cm (5' 8) 05/14/2024 7:57 PM DIVERSITY MANAGER Body Mass Index 22.96 05/14/2024 7:57 PM DIVERSITY MANAGER Plan of Treatment Health Maintenance Due Date Last Done Comments Cervical Cancer Screening Pap Smear (Age 21 to 29) Every 3 Years 2002 Cervical Cancer Screening 2002 Annual Physical 2005 Chlamydia Screening Females ages 16-24 2018 Hepatitis C 2020 Pneumococcal Vaccine: Pediatrics (0 to 5 Years) and At-Risk Patients (6 to 49 Years) (1 of 2 - PCV) 2021 06/02/2004, 01/26/2003, 2002, Additional history exists DTaP, Tdap and Td Vaccines (7 - Td or Tdap) 12/19/2023 12/18/2013, 01/11/2008, 06/02/2004, Additional history exists COVID-19 Vaccine ( season) 2025 10/17/2020, 09/23/2020 Influenza Adult (#1) 2025 05/19/2020, 04/25/2019, 04/09/2018, Additional history exists Hepatitis B Vaccines Completed 05/17/2003, 2002, 2002 HPV Vaccines Completed 10/23/2014, 04/28, 12/18/2013 Meningococcal B Vaccine Completed 01/07/20, 03/08/2020, 02/02/2020 Meningococcal Vaccine Completed 02/02/2023 , 02/02/2020, 12/18/2013 RSV Immunizations Under 20 Months Aged Out No longer eligible based on patient's age to complete this topic Insurance [facility] Care Teams Secy Relationship Specialty Start Date End Date Sydney Richards DO [address] [place] [address] PCP - General FAMILY PRACTICE 04/05/24
--- NOTE | 2025-04-11 01:35 | ED.GENADULT ---
HPI - General Adult General Chief complaint: Seizure Stated complaint: 3 seizures around 2030 Time Seen by Provider: 04/11/25 01:33 History of Present Illness HPI narrative: Patient is a 24-year-old female who presents to the emergency department this evening due to of breakthrough seizure. Boyfriend states that she did have a total of 3 seizures lasting only a few minutes. Patient did return back to baseline between the seizures. Admits that she does have a history of seizure disorder and does take Keppra 600 mg b.i.d.. Patient states that she has not seen her neurologist in a long time but this see her family doctor who prescribes her her Keppra. States that she last had her dose increased this past spring. Patient states that she has been getting a breakthrough seizure approximately once a month for the past few months. Patient admits that she did hit her head both today and 2 nights ago when she had a seizure. Complains of a mild headache. Otherwise denies any additional symptoms or concerns. Related Data Allergies Allergy/AdvReac Type Severity Reaction Status Date / Time Penicillins Allergy Unknown Swelling Verified 04/10/25 23:50 of Lip/Tongue/Throat aripiprazole (From Abilify) AdvReac Severe Other Verified 04/10/25 23:50 Review of Systems Review of Systems: All systems are reviewed and are negative unless stated otherwise in the HPI. [facility] Past Medical History Medical History Vitamin D deficiency Chronic pain Suicide attempt Schizotypal disorder Bipolar disorder Asthma Missed PTSD (post-traumatic stress disorder) Generalized anxiety disorder with panic attacks Major depressive disorder Surgical History Surgical History H/O dilation and curettage Family History Family History Father Heart disease Mother Alcohol abuse Anxiety Depression Bipolar 1 disorder Epilepsy Grandparent Diabetes mellitus Alcohol abuse Anxiety Depression Heart disease Hypertension Social History Social History Social History: Caffeine-Coffee/tea/soda 3 cups daily Smoking packs per day: 0.25 Smoking cigarettes per day: 5.0 Years smoked: 2 Smoking pack-years: 0.50 Smoking status: Current every day smoker Tobacco type: cigarettes Alcohol intake: current Drinks per week: 1 Alcohol use details: She drinks couple of alcoholic beverages a month. Substance use: never Substance use type: does not use Do You Feel Safe in your Home?: Yes Lack of Transportation: No Lack of Food: Sometimes True Current Housing: Decline to Answer Concerned About Future Housing: No Difficulty Paying Gas/Electric Bills: No Difficulty Paying for Meds: YES Currently Unemployed: No Education: High School Diploma/GED Difficulty w/ Childcare or Family Care: No Living arrangements: with family Spiritual care concerns: No Agree to blood products: Yes Exam Narrative: General: Alert, awake, afebrile, in no acute distress. HEENT: PERRL, no rhinorrhea, no post nasal drip, oropharynx clear. Neck: Trachea midline, no JVD, no lymphadenopathy. Cardiovascular: Regular rate and rhythm, no murmurs, rubs or gallops, no peripheral edema. Respiratory: Clear to auscultation bilaterally, no tachypnea, no wheezing, no rhonchi, no rubs, no respiratory distress. Abdomen: Soft, nontender, nondistended, no rebound, no guarding, no peritoneal signs. Musculoskeletal: No joint swelling or deformity, normal muscle tone. Skin: No rashes or petechia, no signs of infection. Psychiatric: Alert and oriented, normal behavior and judgment for situation. Neurological: Alert and oriented to person, place, and time. Follows all commands. No focal deficits, speech is clear and fluent. Course Vital Signs Vital signs: Vital Signs Temperature 97.5 F L 04/10/25 23:50 Pulse Rate 70 04/10/25 23:50 Respiratory Rate 16 04/10/25 23:50 Blood Pressure 124/79 04/10/25 23:50 Temperature 97.5 F L 04/10/25 23:50 Pulse Rate 70 04/10/25 23:50 Respiratory Rate 16 04/10/25 23:50 Blood Pressure 124/79 04/10/25 23:50 Medical Decision Making MDM Narrative Medical decision making narrative: The patient was evaluated by myself in the emergency department. History is obtained from patient who is an independent historian and physical exam was performed. External medical records were reviewed at this time. IV was established and pertinent tests were ordered. Patient was administered 1500 mg of IV Keppra at this time. Laboratory results obtained revealing no acute process. Lactic acid normal, CPK normal. Urinalysis unremarkable. Imaging studies obtained included CXR and CT brain without IV contrast which was independently interpreted by me revealing no acute cardiopulmonary/intracranial process, which is pending final radiology interpretation. Differential diagnosis considerations include breakthrough seizure, dehydration, electrolyte derangements, acute viral syndrome, infectious process such as pneumonia/UTI. Comorbidities impacting this visit include history of seizure disorder. I have evaluated and discussed social determinants of health with the patient that could potentially impact subsequent diagnosis and treatment plans. On repeat assessment of the patient, reevaluation revealed that the patient is doing well and is in no acute distress. Patient symptoms have improved since she arrived to our emergency department. Repeat vital signs were all reviewed and noted to be stable. Differential diagnosis and treatment plan were discussed with the patient at bedside. Patient agrees with discussion and after shared medical decision making agrees with discharge. All questions were answered to the patient's satisfaction. Patient will follow up with her Neurologist in 3-5 days. She was informed that she may need to have her seizure medications/dosage readjusted given that she has been having these breakthrough seizures every few weeks. Patient sees a neurologist through [facility]. Patient was provided with strict return precautions and instructed to return to the emergency department if any new or worsening symptoms develop. The patient was discharged in stable condition. Vital Signs Vital Signs: Vital Signs Temperature 97.5 F L 04/10/25 23:50 Pulse Rate 70 04/10/25 23:50 Respiratory Rate 16 04/10/25 23:50 Blood Pressure 124/79 04/10/25 23:50 Temperature 97.5 F L 04/10/25 23:50 Pulse Rate 70 04/10/25 23:50 Respiratory Rate 16 04/10/25 23:50 Blood Pressure 124/79 04/10/25 23:50 Lab Data 04/11/25 02:07 04/11/25 02:07 Labs: Lab Results 04/11/25 Range/Units 02:07 WBC 8.8 (4.5-10.0) K/mm3 RBC 3.94 L (4.2-5.4) M/mm3 Hgb 10.8 L (12.0-15.0) g/dL Hct 34.2 L (37.0-47.0) % MCV 86.8 (80-100) fl MCH 27.4 (26-34) pg MCHC 31.6 L (32-36) g/dl RDW 14.1 (11.5-14.5) % Plt Count 289 (150-375) k/mm3 MPV 9.7 (7.4-10.4) fl Immature Gran % (Auto) 0.3 (0-0.5) % Neut % (Auto) 63.3 (45.5-73.1) % Lymph % (Auto) 28.1 (18.3-44.2) % [place] % (Auto) 6.8 (2.6-8.5) % Eos % (Auto) 1.0 (0-4.4) % Baso % (Auto) 0.5 (0.2-1.2) % Lymph # (Auto) 2.46 (0.9-3.2) K/mm3 [place] # (Auto) 0.6 (0.1-0.6) K/mm3 Eos # (Auto) 0.1 (0-0.3) K/mm3 Baso # (Auto) 0.0 (0.0-0.1) K/mm3 Abs Immat Gran (auto) 0.03 (0.00-0.031) K/mm3 Absolute Neuts (auto) 5.5 (1.3-6.7) K/mm3 Absolute Nucleated RBC 0.000 (0.0-0.012) K/mm3 Nucleated RBC % 0.0 (0.0-0.2) % Sodium 136 L (137-145) mmol/L Potassium 4.2 (3.4-5.0) mmol/L Chloride 106 (98-107) mmol/L Carbon Dioxide 25 (22-30) mmol/L Anion Gap 5 (4-12) mmol/L BUN 9 (7-17) mg/dL Creatinine 0.54 L (0.7-1.0) mg/dL Estim Creat Clear Calc Not Reportable Estimated GFR > 60 (59 - ) Glucose 96 (65-110) mg/dL Lactic Acid 0.8 (0.7-2.0) mmol/L Calcium 8.7 (8.4-10.2) mg/dL Magnesium 2.0 (1.6-2.3) mg/dL Total Bilirubin 1.7 H (0.2-1.3) mg/dL AST 23 (14-36) U/L ALT 9 (6-35) U/L Alkaline Phosphatase 80 (38-126) U/L Total Creatine Kinase 88 (30-135) U/L Total Protein 6.5 (6.3-8.2) g/dL Albumin 3.9 (3.5-5.1) g/dL Serum HCG, Qual Negative Urine Color Yellow (Yellow) Urine Appearance Clear (Clear) Urine pH 7.0 (5.0-9.0) Ur Specific [place] 1.023 (1.001-1.035) Urine Protein Negative (Negative) mg/dL Urine Glucose (UA) Negative (Negative) mg/dL Urine Ketones Negative (Negative) mg/dL Ur Blood (Man) Negative (Negative) Urine Nitrate Negative (Negative) Urine Bilirubin Negative (Negative) Urine Urobilinogen 1.0 (<2.0) mg/dL Leukocyte Esterase Rfl Trace H (Negative) STACEY/UL Urine RBC 0-2 (0-2) /hpf Urine WBC 0-5 (0-3) /hpf Ur Squamous Epith Cells Few (Few) /hpf Urine Bacteria None seen /hpf Urine Casts 0-2 Discharge Plan Discharge Clinical Impression: Breakthrough seizure Patient Disposition: Home Condition: Improved Instructions: Antibiotic Form, Epilepsy (ED) Additional Instructions: Please follow-up with your neurologist/family doctor within the next 3-5 days. Return to the ED if any new or worsening symptoms develop. Patient Language: Georgian Prescriptions: No Action desvenlafaxine succinate [Pristiq] 25 mg tablet extended release 24 hr 25 mg PO DAILY Qty: 30 1RF meclizine 25 mg tablet 25 mg PO QID PRN (Reason: dizziness) Qty: 60 0RF levetiracetam [Keppra] 500 mg tablet 500 mg PO BID Qty: 180 1RF quetiapine 25 mg tablet 25 mg PO QHS Qty: 30 5RF Follow-up/Referrals: Sydney Richards DO [Primary Care Provider, Family Practice] - 3 Days Time of Disposition: 02:58
--- OUTSIDE RECORDS SUMMARY | 2025-04-11 01:46 | XMS_ITS | Patient Health Record ---
Author Organization [facility] As [employer] Address [address] [place] [address] Care Team Providers Care Veterinary Technician Assistant Name Role Phone Sydney GALEANO DO Primary Care Provider Mauro Fay Unavailable [phone] Sandra Dyer Unavailable [phone] Clarke Spear Unavailable [phone] Allergies Allergen (clinical drug ingredient) Drug/Non Drug [...] decision-maker Yes Do you have Power of Devulcanizer Tender for Health or [facility]? No Safety issues: Are there any firearms [...] Risk Notes Problem Schizoaffective disorder, bipolar type (60029468) Schizoaffective disorder, bipolar type (F25.0) Active confirmed Problem Posttraumatic stress disorder (79114524) PTSD (post-traumatic stress disorder) (F43.10) Active confirmed Problem Current smoker (36477756) Current smoker (F17.200) Active confirmed Problem Essential hypertension (38827094) Hypertension, unspecified type (401.9) Active confirmed Problem Personality disorder (68978791) Personality disorder (F60.9) Active confirmed Vital Signs Heart Rate 115 /min 04/28/2024 Blood pressure diastolic 90 mm Hg 04/28/2024 Weight-kg 68.67 kg 04/28/2024 Blood pressure systolic 134 mm Hg 04/28/2024 Weight 151.4 lbs 04/28/2024 Encounters Encounter Location Date Provider Diagnosis [facility] [employer], [employer] [address] [place] [address] 04/28/2024 Clarke Viera PTSD (post-traumatic stress disorder) F43.10 ; Personality disorder F60.9 ; Current smoker F17.200 and Hypertension, unspecified type 401.9 [facility] [employer] [facility], [place] [address] [place] [address] 05/04/2024 Sandra Gomez PTSD (post-traumatic stress disorder) F43.10 and Schizoaffective disorder, bipolar type F25.0 [facility] [employer], [place] [address] [place] [address] 05/11/2024 Sandra Gomez [facility] [employer] [facility], [employer] 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 Financial Concerns: yeah Did not elaborate [...] possible. 04/28/2024 Current smoker (ICD-10 - F17.200) 1-166-Quit - Yes [place] Tobacco Quitline Call a Smoking Quitline The National [employer]'s Smoking Quitline, (8-938-37J-QUIT) Smokefree.gov, which connects you with your State's Quitline, (4-905-QNQSKJD) Veterans Smoking Quitline, (9-026-BRMIATL) 1. Anxiety - Continue propranolol 10mg three [...] PANEL, STANDARD (7600) 03/08/2024 COMPREHENSIVE METABOLIC PANEL (73554) AST (822) 03/08/2024 ALT (823) 03/08/2024 CBC (H/H, RBC, INDICES, WBC, PLT) (1759) 03/08/2024 VITAMIN B12 (927) 03/08/2024 TSH W/REFLEX TO FT4 (57889) 03/08/2024 UDT 03/08/2024 Hemoglobin A1C 03/08/2024 Insurance Providers Payer Name Payer Address Payer Phone Subscriber Number Group Number Insured Name Patient Relationship to Insured Coverage Start Date Coverage End Date [facility] [address] [place] [address] [id number] APARNANANDO Child - Insured has Financial Responsibility [...]
--- OUTSIDE RECORDS SUMMARY | 2025-04-11 01:46 | XMS_ITS | Clinical Summary ---
Author Organization [facility] Address [address] [place] [address] Care Team Providers Care Barge Master Name Role Phone Sydney Richards DO Primary Care Provider +1- [phone] Allergies Active Allergy Reactions Criticality Noted Date [...] Comments Blood Pressure 108/70 05/14/2024 7:57 PM RN MDS COORDINATOR Pulse 74 05/14/2024 7:57 PM RN MDS COORDINATOR Temperature 36.8 C (98.2 F) 05/14/2024 7:57 PM RN MDS COORDINATOR Respiratory Rate 18 05/14/2024 7:57 PM RN MDS COORDINATOR Oxygen Saturation 98% 05/14/2024 7:57 PM RN MDS COORDINATOR Inhaled Oxygen Concentration - - Weight 68.5 kg (151 lb 0.2 oz) 05/14/2024 7:57 P M RN MDS COORDINATOR Height 172.7 cm (5' 8) 05/14/2024 7:57 PM RN MDS COORDINATOR Body Mass Index 22.96 05/14/2024 7:57 PM RN MDS COORDINATOR Plan of Treatment Health Maintenance Due Date [...] patient's age to complete this topic Insurance [employer] Care Teams Barge Master Relationship Specialty Start Date End Date Sydney Richards DO [address] [place] [address] PCP - General FAMILY PRACTICE 04/05/24
[2025-04-11] MEDS: levETIRAcetam 1500MG/NACL100ML 1,500 MG/100 ML BAG 400 MG IVPB (02:09)
[2025-04-11 02:17] LABS: Hematocrit 34.2 % (37.0-47.0); Hemoglobin 10.8 g/dL (12.0-15.0); Immature Granulocyte Percent A 0.3 % (0-0.5); Lymphocytes Absolute Auto 2.46 K/mm3 (0.9-3.2); Mean Corpuscular HGB Conc 31.6 g/dl (32-36); Mean Corpuscular Hemoglobin 27.4 pg (26-34); Mean Corpuscular Volume 86.8 fl (80-100); Nucleated Red Blood Cells Absolute Auto 0.000 K/mm3 (0.0-0.012); Nucleated Red Blood Cells Perc 0.0 % (0.0-0.2); Platelet Count Result 289 k/mm3 (150-375); Red Blood Count 3.94 M/mm3 (4.2-5.4); White Blood Count 8.8 K/mm3 (4.5-10.0)
[2025-04-11 02:24] LABS: Add Urine Microscopic? YES; Appearance Urine Clear (Clear); Glucose Urine UA Negative (Negative); Leukocyte Esterase Ur Trace LEU/UL (Negative); Nitrate Urine Negative (Negative); Non Pathogenic Casts 0-2; Specific Grav Ur 1.023 (1.001-1.035)
[2025-04-11 02:30] LABS: Alanine Aminotransferase 9 U/L (6-35); Albumin Level 3.9 g/dL (3.5-5.1); Alkaline Phosphatase 80 U/L (38-126); Anion Gap 5 mmol/L (4-12); Aspartate Amino Transferase 23 U/L (14-36); Bilirubin,Total 1.7 mg/dL (0.2-1.3); Blood Urea Nitrogen 9 mg/dL (7-17); Calcium 8.7 mg/dL (8.4-10.2); Carbon Dioxide 25 mmol/L (22-30); Chloride 106 mmol/L (98-107); Estimated Glomerular Filt Rate > 60; Glucose 96 mg/dL (65-110); Magnesium 2.0 mg/dL (1.6-2.3); Potassium 4.2 mmol/L (3.4-5.0); Sodium 136 mmol/L (137-145); Total Protein 6.5 g/dL (6.3-8.2)
[2025-04-11 02:32] LABS: SPREG INTERNAL CONTROL Positive; Serum Qual hCG Negative
[2025-04-11 02:51] LABS: Creatine Kinase 88 U/L (30-135)
[2025-04-11] MEDS: KETOROLAC 15 MG/ML VIAL (*BKC) IV PUSH (03:08)
[2025-04-11 03:16] VITALS: BP 113/73; PULSE 57; RESP 13; TEMP 36.8; O2SAT 98
== END 2025-04-11 03:17 | disposition home or self-care (01) ==
PROVIDERS: Emergency Provider Emergency Medicine; PCP Family Medicine
DX: G40.909 Epilepsy, unspecified, not intractable, without status epilepticus (principal); F17.210 Nicotine dependence, cigarettes, uncomplicated
CPT/HCPCS: 36415; 70450; 71045; 80053; 81001; 82550; 83605; 83735; 84703; 85025; 96365; 96375; 99284; J1885; J1953

== ENCOUNTER 2025-06-10 18:30 | Emergency (ER) | payer OTHER, SELFPAY ==
--- NOTE | ~2025-06-10 | CT_ITS ---
CT CERVICAL SPINE WITHOUT CONTRAST CLINICAL HISTORY: pain and sensory changes Technique: Axial images thoracic inlet to skull base Sagittal and coronal reformats. No contrast CT images acquired with automatic exposure control for dose reduction DLP: 198 mGy-cm Comparison: None Findings: No acute fracture or listhesis. Straightening of normal cervical lordosis. Congenital nonfusion posterior arch C1. No significant degenerative changes. Disc spaces maintained. Prevertebral soft tissues within normal limits. Visualized lung apices: Clear. Visualized thyroid: Unremarkable. No enlarged cervical nodes. IMPRESSION: 1. No acute findings. Reviewed, dictated and finalized at location R. DENT RESPONSE SPECIALIST IMPRESSION: 1. No acute findings.
--- NOTE | ~2025-06-10 | CT_ITS ---
EXAM/PROCEDURE: CT thoracic spine wo con HISTORY: pain and sensory changes COMPARISON: None available. TECHNIQUE: Thoracic spine CT FINDINGS: No fracture or traumatic malalignment. No acute or aggressive bony or soft tissue process seen. IMPRESSION: Negative thoracic spine CT NOTE: Preliminary radiology report provided by [facility] radiologist/physician. Reviewed, dictated and finalized at location A. BICS TEACHER IMPRESSION: Negative thoracic spine CT NOTE: Preliminary radiology report provided by [facility] radiologist/physician.
[2025-06-10 18:39] VITALS: BP 123/76; PULSE 81; RESP 18; TEMP 36.7; O2SAT 100
--- NOTE | 2025-06-10 18:55 | ECG_ITS ---
Test Date: 2025-06-10 19:18:44 Measurements Intervals [place] Rate: 87 P: 46 SD: 167 QRS: 79 QRSD: 93 T: 58 QT: 380 QTc: 459 Interpretive Statements SINUS RHYTHM BASELINE ARTIFACT- AVR, AVL NORMAL ECG Compared to ECG 09/07/2024 12:30:53 No significant changes Electronically Signed On 06-10-2025 20:05:12 ARTS ADMINISTRATOR by Ren Ramos D.O.
--- OUTSIDE RECORDS SUMMARY | 2025-06-10 19:09 | XMS_ITS | Patient Health Record ---
Author Organization [facility] [employer] Address [address] [place] [address] Care Team Providers Care Ramp Boss Name Role Phone Sydney GALEANO DO Primary Care Provider Mauro Fay Unavailable [phone] Allergies Allergen (clinical drug ingredient) Drug/Non Drug [...] decision-maker Yes Do you have Power of Kitchen Mechanic for Health or [facility]? No Safety issues: Are there any firearms [...] Risk Notes Problem Schizoaffective disorder, bipolar type (35947798) Schizoaffective disorder, bipolar type (F25.0) Active confirmed Problem Posttraumatic stress disorder (50628061) PTSD (post-traumatic stress disorder) (F43.10) Active confirmed Problem Current smoker (42291463) Current smoker (F17.200) Active confirmed Problem Essential hypertension (72129005) Hypertension, unspecified type (401.9) Active confirmed Problem Personality disorder (85887670) Personality disorder (F60.9) Active confirmed Plan Of Treatment Pending Test Test Name Order Date Vitamin D, 1,25 Dihydroxy 03/08/2024 LIPID PANEL, STANDARD (7600) 03/08/2024 COMPREHENSIVE METABOLIC PANEL (08734) AST (822) 03/08/2024 ALT (823) 03/08/2024 CBC (H/H, RBC, INDICES, WBC, PLT) (1759) 03/08/2024 VITAMIN B12 (927) 03/08/2024 TSH W/REFLEX TO FT4 (36812) 03/08/2024 UDT 03/08/2024 Hemoglobin A1C 03/08/2024 Insurance Providers Payer Name Payer Address Payer Phone Subscriber Number Group Number Insured Name Patient Relationship to Insured Coverage Start Date Coverage End Date [facility] [address] [place] [address] [id number] [place] APARNA[place]NDO Child - Insured has Financial Responsibility [...]
--- OUTSIDE RECORDS SUMMARY | 2025-06-10 19:09 | XMS_ITS | Clinical Summary ---
Author Organization [facility] Address [address] [place] [address] Care Team Providers Care Packer Fuser Name Role Phone Sydney Richards DO Primary Care Provider +1- [phone] Allergies Active Allergy Reactions Criticality Noted Date [...] Comments Blood Pressure 108/70 05/14/2024 7:57 PM PHOTOVOLTAIC PANEL INSTALLER Pulse 74 05/14/2024 7:57 PM PHOTOVOLTAIC PANEL INSTALLER Temperature 36.8 C (98.2 F) 05/14/2024 7:57 PM PHOTOVOLTAIC PANEL INSTALLER Respiratory Rate 18 05/14/2024 7:57 PM PHOTOVOLTAIC PANEL INSTALLER Oxygen Saturation 98% 05/14/2024 7:57 PM PHOTOVOLTAIC PANEL INSTALLER Inhaled Oxygen Concentration - - Weight 68.5 kg (151 lb 0.2 oz) 05/14/2024 7:57 P M PHOTOVOLTAIC PANEL INSTALLER Height 172.7 cm (5' 8) 05/14/2024 7:57 PM PHOTOVOLTAIC PANEL INSTALLER Body Mass Index 22.96 05/14/2024 7:57 PM PHOTOVOLTAIC PANEL INSTALLER Plan of Treatment Health Maintenance Due Date [...] 2002 HPV Vaccines Completed 10/23/2014, 04/28, 12/18/2013 Hepatitis A Vaccines Completed 10/23/2014, 12/19/19 Meningococcal B Vaccine Completed 01/07/20, 03/08/2020, 02/02/2020 Meningococcal Vaccine Completed 02/02/2023 , 02/02/2020, 12/18/2013 RSV Immunizations Under 20 Months Aged Out No longer eligible based on patient's age to complete this topic [facility] Care Teams Packer Fuser Relationship Specialty Start Date End Date Sydney Richards DO [address] [place] [address] PCP - General FAMILY PRACTICE 04/05/24
[2025-06-10] MEDS: diphenhydrAMINE HCl CAP 25 MG CAPSULE PO (19:58)
[2025-06-10] MEDS: ONDANSETRON HCL ODT 4 MG TABLET PO (19:59)
[2025-06-10] MEDS: KETOROLAC 30 MG/ML VIAL (*BKC) IM (19:59)
[2025-06-10] MEDS: ACETAMINOPHEN 500 MG TABLET 1000 MG PO (20:55)
[2025-06-10] MEDS: MECLIZINE HCL 25 MG TABLET PO (20:55)
[2025-06-10 21:15] VITALS: BP 125/64; PULSE 78; RESP 16; O2SAT 100
[2025-06-10 21:18] LABS: BEDSIDEPREGUCG Negative (Negative)
[2025-06-11] MEDS: oxyCODONE/ACETAMINOPHEN (*CRX) 5-325 MG TABLET 1 TABLET PO (00:17)
[2025-06-11] MEDS: CYCLOBENZAPRINE HCL 10 MG TABLET PO (00:17)
--- NOTE | 2025-06-11 00:48 | ED_ITS ---
HPI - General Adult General Chief complaint: Unspecified Stated complaint: couple massage back pain , dizzy, left numb Time Seen by Provider: 06/10/25 18:50 History of Present Illness HPI narrative: 24-year-old female presenting with concerns for thoracic and cervical back pain that began while she was getting a massage shortly before arrival to the ED. Other symptoms she is reporting includes headaches, dizziness, numbness/tingling to all extremities, and nausea. She states that she is feeling very confused. Patient is A&Ox4 and was able to ambulate into the ER. Denies vomiting/diarrhea and shortness of breath/chest pain. Related Data Allergies Allergy/AdvReac Type Severity Reaction Status Date / Time Penicillins Allergy Unknown Swelling Verified 06/10/25 18:39 of Lip/Tongue/Throat aripiprazole (From Abilify) AdvReac Severe Other Verified 06/10/25 18:39 Review of Systems Review of Systems: All systems reviewed & are unremarkable except as noted in HPI and below PMFSH Past Medical History Medical History Vitamin D deficiency Chronic pain Suicide attempt Schizotypal disorder Bipolar disorder Asthma Missed PTSD (post-traumatic stress disorder) Generalized anxiety disorder with panic attacks Major depressive disorder Surgical History Surgical History H/O dilation and curettage Family History Family History Father Heart disease Mother Alcohol abuse Anxiety Depression Bipolar 1 disorder Epilepsy Grandparent Diabetes mellitus Alcohol abuse Anxiety Depression Heart disease Hypertension Social History Social History Social History: Caffeine-Coffee/tea/soda 3 cups daily Smoking packs per day: 0.25 Smoking cigarettes per day: 5.0 Years smoked: 2 Smoking pack-years: 0.50 Smoking status: Current every day smoker Tobacco type: cigarettes Alcohol intake: current Drinks per week: 1 Alcohol use details: She drinks couple of alcoholic beverages a month. Substance use: never Substance use type: does not use Lack of Transportation: No Lack of Food: Sometimes True Current Housing: Decline to Answer Concerned About Future Housing: No Difficulty Paying Gas/Electric Bills: No Difficulty Paying for Meds: YES Currently Unemployed: No Education: High School Diploma/GED Difficulty w/ Childcare or Family Care: No Living arrangements: with family Spiritual care concerns: No Agree to blood products: Yes Exam Narrative: GENERAL: No acute distress. HEAD: Normocephalic, atraumatic. EYES: PERRLA and EOMI. ENT: Nares clear, no rhinorrhea or epistaxis. Mucous membranes moist. Oropharynx without tonsillar hypertrophy exudate or other lesions. Bilateral TMs pearly mcmullen non-bulging NECK: Supple. No adenopathy or masses. No carotid bruits or JVD CHEST: Clear to auscultation. No respiratory distress. No wheezes rales or rhonchi HEART: Regular rate and rhythm. No murmur heard. Normal peripheral pulses. ABDOMEN: Soft, nontender, nondistended, normal active bowel sounds. EXTREMITIES: A&O X3. Speech clear. Follows commands. CN II-XII intact. Reports left sided decreased sensation. Could differentiate between sharp and dull touch on left side. Steady gait. No ataxic movements. Strength 5/5 in upper and lower extremities bilaterally. [id number] testing intact bilaterally. No pronator drift. SKIN: Warm, dry, no rash. NEURO: No focal deficits. Alert and oriented x3. PSYCH: Normal mood and affect Course Vital Signs Vital signs: Vital Signs Temperature 98.1 F 06/10/25 18:39 Pulse Rate 81 06/10/25 18:39 Respiratory Rate 18 06/10/25 18:39 Blood Pressure 123/76 06/10/25 18:39 Pulse Oximetry 100 06/10/25 18:39 Oxygen Delivery Room Air 06/10/25 18:39 Temperature 98.1 F 06/10/25 18:39 Pulse Rate 78 06/10/25 21:15 Respiratory Rate 16 06/10/25 21:15 Blood Pressure 125/64 06/10/25 21:15 Pulse Oximetry 100 06/10/25 21:15 Oxygen Delivery Room Air 06/10/25 18:39 MDM MDM Narrative Medical decision making narrative: 24-year-old female presenting with concerns for thoracic and cervical back pain that began while she was getting a massage shortly before arrival to the ED. Other symptoms she is reporting includes headaches, dizziness, numbness/tingling to all extremities, and nausea. She states that she is feeling very confused. Patient is A&Ox4 and was able to ambulate into the ER. Denies vomiting/diarrhea and shortness of breath/chest pain. Reports a history of migraine headaches. Upon my initial assessment patient appears nontoxic with stable vitals. Neurological exam intact. Administered migraine cocktail and meclizine with patient reporting minor improvements. Imaging demonstrates no acute abnormalities. Patient is tearful upon reassessment reporting she feels increasingly confused and in a lot of pain. Repeat neurological exam grossly intact and patient is still A&Ox4. Administered Flexeril and oxycodone. The patient is appropriate for outpatient treatment and follow-up. Given reasons to return. Differential Diagnosis Differential Diagnosis: Differential diagnostic considerations for back pain include herniated disc, sciatica, abscess, strain/sprain, discitis, myelitis, fracture, hematoma, cauda equina, osteomyelitis, metastatic and/or primary malignancy, renal colic, pyelonephritis, AAA. Medical Records I have reviewed the following patient records and this information was taken into consideration when formulating the assessment and plan.: previous labs, previous ER visits and previous hospitalizations Lab Data [facility] Lab Attestation statement: I personally reviewed the patient's lab results. Labs: Lab Results 06/10/25 Range/Units 21:15 POC Urine HCG, Qual Negative (Negative) Imaging Data Radiologist's impression: ITS Impressions Cervical Spine CT 06/11/25 07:04 IMPRESSION: 1. No acute findings. Thoracic Spine CT 06/11/25 07:46 IMPRESSION: Negative thoracic spine CT NOTE: Preliminary radiology report provided by [facility] radiologist/physician. Discharge Plan Discharge Clinical Impression: Dizziness, Back pain, Acute tension headache, History of migraine headaches Patient Disposition: Home Condition: Stable Instructions: Tension Headache (ED), Lightheadedness (ED), Dizziness (ED), Back Pain (ED) Additional Instructions: Return to the ER if you experience chest pain, shortness of breath, bowel/bladder incontinence or any other symptoms that are concerning to you. Rest, use ice/heat, take anti-inflammatories (Aleve, Ibuprofen, Naproxen, etc) or Tylenol as needed for pain as well as muscle relaxer as needed for pain. Follow up with your primary care doctor. Patient Language: Scottish Prescriptions: No Action desvenlafaxine succinate [Pristiq] 25 mg tablet extended release 24 hr 25 mg PO DAILY Qty: 30 1RF meclizine 25 mg tablet 25 mg PO QID PRN (Reason: dizziness) Qty: 60 0RF levetiracetam [Keppra] 500 mg tablet 500 mg PO BID Qty: 180 1RF quetiapine 25 mg tablet 25 mg PO QHS Qty: 30 5RF Follow-up/Referrals: Sydney Richards DO [Primary Care Provider, Family Practice]
== END 2025-06-11 00:21 | disposition home or self-care (01) ==
PROVIDERS: Emergency Medicine; PCP Family Medicine
DX: M54.2 Cervicalgia (principal); M54.6 Pain in thoracic spine; R42 Dizziness and giddiness; G44.209 Tension-type headache, unspecified, not intractable; J45.909 Unspecified asthma, uncomplicated; E55.9 Vitamin D deficiency, unspecified; F31.9 Bipolar disorder, unspecified; F21 Schizotypal disorder; F43.10 Post-traumatic stress disorder, unspecified; F41.1 Generalized anxiety disorder; F41.0 Panic disorder [episodic paroxysmal anxiety]; F17.210 Nicotine dependence, cigarettes, uncomplicated
CPT/HCPCS: 72125; 72128; 81025; 93005; 96372; 99284; A9270; J1885